=== PATIENT | female | born 1975 | race Caucasian/White ===

== ENCOUNTER → 2020-08-02 09:03 | Outpatient (BNVA) | payer OTHER, SELFPAY | PROVIDERS: PCP Internal Medicine; Visit Provider Physician Assistant | DX: Z76.89 Persons encountering health services in other specified circumstances (principal) ==

== ENCOUNTER → 2020-08-03 08:26 | Outpatient (BNVA) | payer OTHER, SELFPAY | PROVIDERS: PCP Internal Medicine; Visit Provider Physician Assistant | DX: Z76.89 Persons encountering health services in other specified circumstances (principal) ==

== ENCOUNTER → 2020-08-25 15:58 | Outpatient (BNVA) | payer OTHER, SELFPAY | PROVIDERS: PCP Internal Medicine; Visit Provider Surgery ==

== ENCOUNTER 2020-08-31 07:50 | Outpatient (REF) | payer OTHER, SELFPAY ==
[2020-08-31 09:07] LABS: Cholesterol 178 mg/dL; HDL Cholesterol 44 mg/dL; Iron 57 mcg/dL (30-160); LDL Cholesterol Calculated 117 mg/dl; Percent Iron Saturation 18 % (15-50); Total Iron Binding Capacity 321 mcg/dL (228-428); Triglycerides 88 mg/dL; Unsaturated Iron Binding 264 ug/dL
[2020-08-31 09:32] LABS: Ferritin 235 ng/mL (10-250); Vitamin D 25-OH Total 11.5 ng/mL (>30)
[2020-08-31 10:31] LABS: Estimated Average Glucose 105 mg/dL; Hemoglobin A1c % 5.3 %
[2020-08-31 11:21] LABS: Folate 6.9 ng/mL (> or = 4.0); Vitamin B12 163 pg/mL (200-900)
[2020-09-01 06:07] LABS: Insulin Level Total 36.2 uIU/mL
[2020-09-02 15:42] LABS: Calcium (PTHI) 9.2 mg/dL (8.6-10.2); PTHI 85 pg/mL (14-64)
[2020-09-02 22:47] LABS: Zinc 64 mcg/dL (60-130)
[2020-09-05 12:56] LABS: Vitamin B1 10 nmol/L (8-30)
[2020-09-07 14:17] LABS: Vitamin A 39 mcg/dL (38-98)
== END 2020-08-31 07:51 | disposition home or self-care (01) ==
LOC: HO.LAB 07:50
PROVIDERS: PCP Internal Medicine; Visit Provider Physician Assistant
DX: E66.01 Morbid (severe) obesity due to excess calories (principal); Z68.42 Body mass index [BMI] 45.0-49.9, adult
CPT/HCPCS: 36415; 80061; 82306; 82607; 82728; 82746; 83036; 83525; 83540; 83970; 84425; 84590; 84630; 86140

== ENCOUNTER → 2020-09-06 07:39 | Outpatient (BNVA) | payer OTHER, SELFPAY | PROVIDERS: PCP Internal Medicine; Visit Provider Dietitian, Registered ==

== ENCOUNTER → 2020-09-15 14:53 | Outpatient (BNVA) | payer OTHER, SELFPAY | PROVIDERS: PCP Internal Medicine; Visit Provider Surgery ==

== ENCOUNTER → 2020-10-03 09:49 | Outpatient (BNVA) | payer OTHER, SELFPAY | PROVIDERS: PCP Internal Medicine; Visit Provider Surgery ==

== ENCOUNTER → 2020-11-14 15:32 | Outpatient (BNVA) | payer OTHER, SELFPAY | PROVIDERS: PCP Internal Medicine; Visit Provider Surgery ==

== ENCOUNTER → 2021-01-30 14:22 | Outpatient (BNVA) | payer OTHER, SELFPAY | PROVIDERS: PCP Internal Medicine; Visit Provider Physician Assistant ==

== ENCOUNTER → 2021-02-13 13:55 | Outpatient (BNVA) | payer OTHER, SELFPAY | PROVIDERS: PCP Internal Medicine; Visit Provider Surgery ==

== ENCOUNTER 2021-03-12 12:30 | Emergency (ER) | payer OTHER, SELFPAY ==
--- NOTE | ~2021-03-12 | XR_ITS ---
EXAMINATION: XR KNEE, LEFT CLINICAL INFORMATION: Fall COMPARISON: None TECHNIQUE: Four views of the left knee. FINDINGS: Bones and soft tissues are normal. No fracture or joint effusion. Alignment is anatomic. Joint spaces are well maintained. No abnormal soft tissue calcification. XR/XR knee LT 4V IMPRESSION: No fracture.
--- NOTE | ~2021-03-12 | US_ITS ---
EXAMINATION: US VENOUS ULTRASOUND WITH DOPPLER LOWER EXTREMITY, LEFT CLINICAL INFORMATION: This is a 45-year-old female with left leg injury 2 days ago. Left leg pain and swelling. Possible deep vein thrombosis. COMPARISON: None TECHNIQUE: Ultrasound of the deep veins is performed from the hip to the calf with compression sonography and color and pulse Doppler assessment. Spectral analysis with color-flow imaging is performed. FINDINGS: There is normal venous compression and respiratory variation and augmented flow. The visualized common femoral vein, superficial femoral vein, profunda femoral vein, popliteal vein, and the trifurcation region shows no evidence of deep venous thrombosis. There is no significant popliteal fossa cyst. If the patient's symptoms persist, followup ultrasound in 5 days 7 days might be of value to exclude proximal propagation from a non-visualized calf vein. US/US venous duplex LE LT IMPRESSION: No DVT demonstrated in the left lower extremity.
[2021-03-12 12:44] VITALS: BP 137/83; PULSE 79; RESP 18; TEMP 36.6; O2SAT 97; BMI 40.7
--- NOTE | 2021-03-12 13:53 | ED.LOWEXIN ---
HPI - Extremity Injury (Lower) General Chief Complaint: Extremity Injury, Lower Stated Complaint: fall leg swelling Time Seen by Provider: 03/12/21 13:41 Source: patient Mode of arrival: ambulatory Limitations: no limitations History of Present Illness HPI Narrative: 45-year-old obese female presents for left knee injury after a trip and fall 2 nights ago on an uneven sidewalk. Patient has back issues, so rather than wrench her back she fell to her left side and fell on her left knee. Patient can walk, although it hurts to bear weight. Left calf has become swollen, warm, and tender to touch. Mom has a platelet disorder; ITP. Patient herself sees a doctor regularly but has never been seen by Hematology. MD complaint: knee injury Onset (ago): day(s) (2) Type of Injury: blunt Place: street/outdoors Severity: moderate Relieving factors: rest Exacerbating factors: weight bearing Context: fall Associated symptoms: swelling and ambulatory Other symptoms: none Treatments prior to arrival: cold therapy and NSAIDS Related Data Home Medications Medication Instructions Recorded Confirmed clonazepam 0.5 mg tablet 0.5 mg PO BID PRN 08/04/20 02/13/21 levonorgestrel 20 mcg/24 hours (6 INTRAUTERINE 08/04/20 02/13/21 yrs) 52 mg intrauterine device (Mirena) lisinopril 20 1 tab PO DAILY 08/04/20 02/13/21 mg-hydrochlorothiazide 25 mg tablet gabapentin 300 mg capsule 300 mg PO DAILY 09/16/20 02/13/21 mirabegron 25 mg tablet,extended 25 mg PO DAILY 01/30/21 02/13/21 release 24 hr (Myrbetriq) fluoxetine 20 mg capsule 20 mg PO DAILY cap 02/13/21 02/13/21 Previous Rx's Medication Instructions Recorded mecobalamin (vitamin B12) 1,000 1,000 mcg PO DAILY #30 tab 09/13/20 mcg chewable tablet cholecalciferol (vitamin D3) 1,250 1,250 mcg PO QWEEK #4 cap 09/15/20 mcg (50,000 unit) capsule Allergies Allergy/AdvReac Type Severity Reaction Status Date / Time No Known Allergies Allergy Verified 02/13/21 14:47 [No Known Allergies*] Review of Systems Review of Systems: Constitutional : No Weight loss, No Fever, No Chills, No Night Sweats,No Fatigue, No Malaise ENT/Mouth : No Hearing loss, No Ear Pain, No Nasal Congestion, NoSinus Pain, No Hoarseness, No sore throat, No Rhinorrhea, NoSwallowing Difficulty Eyes: No Eye Pain, No Swelling, No Redness, No Foreign Body, NoDischarge, No Vision Changes Cardiovascular : No Chest Pain, No SOB, No Dyspnea on Exertion, NoOrthopnea, No Edema, No Palpitations Respiratory : No Cough, No Sputum, No Wheezing, No Smoke Exposure, No Dyspnea Gastrointestinal : No Nausea, No Vomiting, No Diarrhea, NoConstipation, No abdominal Pain, No Hematochezia, No Melena Genitourinary : no irregular bleeding, No Dysuria, No UrinaryFrequency, No Hematuria, No Urinary Incontinence, No Urgency, No FlankPain, No Urinary Flow Changes, No Hesitancy Neuro : No Weakness, No Numbness, No Paresthesias, No Loss ofConsciousness, No Dizziness, No Headache Psych : No Anxiety/Panic, No Depression, No SI/HI/AH/VH, No Social Issues, Heme/Lymph: No Bruising, No Bleeding,No Lymphadenopathy Endocrine : No Polyuria, No Polydipsia, No Temperature Intolerance Yes all other systems are reviewed and are negative ENT: Denies dizziness Cardiovascular: Cardiovascular: Denies syncope Musculoskeletal: Musculoskeletal: Reports arthralgias and Denies numbness Integumentary/Breasts: Skin/Breast: Reports skin swelling Comments: Large area of bruising lateral leg and anterior and posterior. Abrasions on this left knee Neurologic: Denies dizziness, Denies syncope and Denies numbness [facility] Past Medical History Medical History Anxiety BMI 45.0-49.9, adult Depression Hypertension IBS (irritable bowel syndrome) Morbid obesity TRICIA on CPAP PCOS (polycystic ovarian syndrome) Surgical History Endometriosis H/O colonoscopy H/O tooth extraction History of bladder surgery Family History Family History Mother No problems noted. Father No problems noted. Sister No problems noted. Social History Social History Alcohol intake: current Alcohol intake frequency: a few times a month Patient Tobacco Use Status: Never used Tobacco Advance Directives: Yes Advance Directives Information Provided: No Advance Directives on File: No Patient : No Physical Exam Vital Signs: Vital Signs: Last Vital Signs Temp 98 F 03/12/21 12:44 Pulse 79 03/12/21 12:44 Resp 18 03/12/21 12:44 BP 137/83 03/12/21 12:44 Pulse Ox 97 03/12/21 12:44 Body Mass Index 40.7 Appearance: Alert. Oriented X3. No acute distress. Head: Normal external exam. Normocephalic. Atraumatic. ?No Martinez signs noted. No raccoon eyes noted Eyes: PERRLA. EOMI. Conjunctiva and sclera normal. Eyelids normal. ENT: EAC normal. TM's Normal. Pharynx normal. Uvula midline. Moist mucous membranes. ??No trismus noted. ?No drooling noted. ?No muffled voice noted. Neck: Normal inspection. Neck supple. FROM. No adenopathy. Thyroid Normal. No meningeal signs. No neck mass noted. CVS: Normal heart rate and rhythm. Heart sound normal. Pulses normal throughout. ?No murmurs/rales/gallops. Respiratory: No respiratory distress. Painless inspiration. Breath sounds normal. No wheezes/rales/rhonchi noted. Chest nontender. ??No accessory muscle usage noted or decreased air movement noted. Abdomen: Soft and nontender. Bowel sounds normal in all 4 quadrants. No distention noted. ?No organomegaly noted. ?No visible injury noted. Back: ?No CVA tenderness. ?Full range of motion noted. ?No rashes/lesion/induration/fluctuance or signs of infection noted. Skin: Skin warm and dry. ?Normal skin color. ?Normal skin turgor. No rashes/lesions/lacerations noted. Extremities: No lower extremity edema. ??Extremities exhibit normal range of motion. ?Extremities nontender. Neuro: Oriented X 3. ?No motor deficit. ?No sensory deficit. ?Reflexes normal. ?Normal steady gait. ?No focal neuro deficits noted. Vascular: + radial pulses/+ 2 distal pedal pulses/+2 dorsalis pedis b/l. ?Normal cap refill. ?No cyanosis noted to upper extremity nails and lower extremity toes nails. Neuro: Oriented X 3. No motor deficit. No sensory deficit. ?Reflexes normal. Moving all extremities. ?No focal motor deficits. ?Cranial nerves II-XI intact bilaterally. ??Facial strength normal. ??Normal cognition. Speech normal. Gait normal. Strength 5/5 throughout. No pronator drift. No tremor noted. No fasciculations noted. No rigidity noted. Muscle tone normal throughout. No asterixis noted. [id number] test normal. ?Heel to hudson test normal. Tandem gait normal. Does not sway with eyes open. Romberg test negative. Rapid alternating movement upper extremity normal. Rapid alternating movement lower extremity normal. ??Hand drop from overhead Misses face. ?NIHSS score 0. Extrem: Other: Ecchymosis lateral left lower extremity, swelling of left calf, warmth and tightness of left calf, mild anterior ecchymosis extending to the ankle of left hudson Left lower extremity: full ROM, normal capillary refill, knee Details: abnormal to inspection (Large area of ecchymosis) Details: Negative for knee not obviously dislocated, patella not obviously dislocated and not erythematous, tenderness (Posterior calf) and swelling (Entire cuff swollen) and lower leg Details: tenderness Location: of the posterior calf, abrasion (Anterior knee), ecchymosis and warmth Location: of the mid lower leg; Negative for no pitting edema, no lacerations and no crepitus Course Course Course Narrative: 45-year-old female presents for left knee pain after falling on left knee 2 days ago. Patient has swollen, warm, ecchymotic left calf. Patient is diffusely tender over left knee, x-rays negative for dislocation or fracture. No joint effusion seen on x-ray Plan is to get ultrasound for DVT rule out, US reads: There is normal venous compression and respiratory variation and augmented flow. The visualized common femoral vein, superficial femoral vein, profunda femoral vein, popliteal vein, and the trifurcation region shows no evidence of deep venous thrombosis. ? There is no significant popliteal fossa cyst. If the patient's symptoms persist, followup ultrasound in 5 days 7 days might be of value to exclude proximal propagation from a non-visualized calf vein Gave patient the immobilizer, allan grossman, advised patient to return to emergency room for DVT rule out if left calf swelling does not resolve in 5 days, or was worsening. Discharge Plan Discharge Clinical Impression: Contusion of knee and lower leg Qualifiers: Encounter type: initial encounter Laterality: left Qualified Code(s): S80.02XA - Contusion of left knee, initial encounter Patient Disposition: Home, Self-Care Instructions: Contusion in Adults (ED), Knee Immobilizer (ED) Additional Instructions: Please rest, ice, immobilize, and elevate your left leg. Use the knee immobilizer as compression. Please call your primary care provider tomorrow morning, I would like you to be seen and discuss a hematology referral for you. Please return to the emergency room if your left calf as more painful, becomes red, or becomes more swollen. If her symptoms do not resolve in 5 days, please return to the emergency room for another ultrasound to rule out a blood clot. Please return to emergency room for any new or concerning symptoms. Prescriptions: No Action mecobalamin (vitamin B12) 1,000 mcg tablet,chewable 1,000 mcg PO DAILY Qty: 30 RF: 5 clonazepam 0.5 mg tablet 0.5 mg PO BID PRNRF: 0 Mirena 20 mcg/24 hours (6 yrs) 52 mg intrauterine device intrauterine RF: 0 lisinopril-hydrochlorothiazide 20-25 mg tablet 1 tab PO DAILY RF: 0 fluoxetine 20 mg capsule 20 mg PO DAILY RF: 0 cholecalciferol (vitamin D3) 1,250 mcg (50,000 unit) capsule 1,250 mcg PO QWEEK Qty: 4 RF: 2 gabapentin 300 mg capsule 300 mg PO DAILY RF: 0 Myrbetriq 25 mg tablet extended release 24 hr 25 mg PO DAILY RF: 0
== END 2021-03-12 16:45 | disposition home or self-care (01) ==
PROVIDERS: Emergency Provider Emergency Medicine Emergency Medical Services; PCP Internal Medicine
DX: S80.02XA Contusion of left knee, initial encounter (principal); W01.0XXA Fall on same level from slipping, tripping and stumbling without subsequent striking against object, initial encounter; E66.01 Morbid (severe) obesity due to excess calories; Z68.41 Body mass index [BMI] 40.0-44.9, adult; Y93.01 Activity, walking, marching and hiking; Y92.480 Sidewalk as the place of occurrence of the external cause; Y99.9 Unspecified external cause status
CPT/HCPCS: 73564; 93971; 99283; 99284

== ENCOUNTER 2022-05-05 23:54 | Emergency (ER) | payer OTHER, SELFPAY ==
--- NOTE | ~2022-05-05 | CT_ITS ---
EXAMINATION: CT HEAD WITHOUT CONTRAST CLINICAL INFORMATION: Right finger numbness COMPARISON: 12.23.2010 TECHNIQUE: Contiguous axial imaging was performed from the skull base to vertex without intravenous administration of contrast. This CT examination was performed using dose optimization techniques as appropriate, variously including the following: *Automated exposure control *Adjustment of mA and/or kV according to patient size (this includes techniques or standardized protocols for targeted exams where dose is matched to indication/reason for exam; i.e. extremities or head) *Use of iterative reconstruction technique DLP: 646 mGy-cm FINDINGS: There is no evidence of acute intracranial hemorrhage or territorial infarction. No abnormal mass effect or midline shift is seen. Peñaloza to white matter differentiation is well preserved. No extra-axial fluid collections are identified. No hydrocephalus. No significant volume loss. There is no abnormal attenuation within the brain parenchyma. No acute osseous or soft tissue abnormality. The mastoid air cells and visualized portions of the paranasal sinuses are well aerated. CT/CT head/brain wo IV con IMPRESSION: No acute intracranial pathology.
[2022-05-06 00:03] VITALS: BP 147/79; PULSE 100; O2SAT 99
[2022-05-06 00:19] VITALS: BP 123/75; PULSE 111; RESP 18; TEMP 36.7; O2SAT 98; BMI 42.4
[2022-05-06 00:55] LABS: MANUAL DIFF FLAG NO
[2022-05-06 00:56] LABS: Basophils Absolute Auto 0.1 X10*3/uL (0.0-0.2); Basophils Percent Auto 0.6 % (0-2); Eosinophils Absolute Auto 0.2 X10*3/uL (0.0-0.4); Eosinophils Percent Auto 1.6 % (0-4); Hematocrit 36.8 % (37.0-47.0); Hemoglobin 12.2 g/dl (12.0-16.0); Imm Gran Abs Auto 0.06 X10*3/uL (0.00-0.03); Imm Gran Pct Auto 0.5 % (0.0-0.4); Lymphocytes Absolute Auto 2.8 X10*3/uL (1.2-4.9); Lymphocytes Percent Auto 24.7 % (20-40); Mean Corpuscular HGB Conc 33.2 g/dl (31.0-35.0); Mean Corpuscular Hemoglobin 27.3 pg (27.0-33.0); Mean Corpuscular Volume 82.3 fL (80.0-98.0); Mean Platelet Volume 9.8 fL (9.4-12.3); Monocytes Absolute Auto 0.5 X10*3/uL (0.1-1.2); Monocytes Percent Auto 4.6 % (2-11); Neutrophils Absolute Auto 7.8 x10*3/uL (2.0-8.3); Platelet Count 306 X10*3/uL (160-400); Red Blood Count 4.47 X10*6/uL (4.20-5.50); Red Cell Distribution Width 13.1 % (11.0-16.0); White Blood Count 11.4 X10*3/uL (4.8-10.8)
--- OUTSIDE RECORDS SUMMARY | 2022-05-06 01:03 | XMS_ITS | Continuity of Care Document ---
:1975 Author Organization [facility] Address [address] [place] [id number]- Care Team Providers Name Role Phone Sue MARTINEZ, Alejandro Amaya Primary Care Physician Encounter [facility] Date(s): 06/28/20 - 07/28/20 [facility] [address] [id number] Attending Physician: Lorna Jay Admitting Physician: Lorna Jay Referring Physician: Lorna Jay Allergies, Adverse Reactions, Alerts Substance Reaction Severity Status Demerol vomiting Active Immunizations Given and Recorded Vaccine Date Status Refusal Reason Influenza Virus Vaccine (oldterm) 04/07/20 Recorded Influenza Virus Vaccine (oldterm) 05/17/17 Given Influenza Virus Vaccine (oldterm) 07/30/13 Given influenza virus vaccine, inactivated 07/20/19 Given influenza virus vaccine, inactivated 05/27/18 Recorded influenza virus vaccine, inactivated 05/21/16 Given influenza virus vaccine, inactivated 05/27/15 Given tetanus/diphtheria/pertussis, acel(Tdap) 09/21/16 Given FluLaval (oldterm)1 03/25/12 Given Fluzone (oldterm) 08/02/09 Given influ virus vac, H1N1, inactive(oldterm)2 08/02/09 Given Pneumococcal Vaccine (oldterm) 06/04/08 Given Influenza Inactive (IM) (oldterm)3 06/04/08 Given Tetanus Toxoid Vaccine (oldterm) 10/03/06 Given 1Admin Note: [id number]: [id number] Note: SANOFI PASTEUR Medications ASA/butalbital/caffeine 325 mg-50 mg-40 mg oral tablet 1 tablet, By Mouth, Every 4 hours, PRN for pain, 1 tablet every 4 hours PRN for headaches fax # [phone], # 30 tablet, 5 Refills, Maintenance, 12/16/17 11:20:08 EDT, Tablet Start Date: 12/16/17 Status: OrderedCPAP House Worker, 05/19/18 8:04:57 EDT, Compound Start Date: 05/19/18 Status: OrderedFlonase 50 mcg/inh nasal spray 1 sprays, Nares, Both, 2 times a day, in each nostril, # 48 mL, 1 Refills, Maintenance, 01/28/20 10:50:00 EDT, [place], [facility]/pharmacy #[id number], 1 sprays Nares, Both 2 times a day,Instr:in each nostril, 165.1, cm, 01/26/20 10:01:00 EDT, Height, 123, kg, 09/05... Start Date: 01/28/20 Status: OrderedFlovent HFA 110 mcg/inh inhalation aerosol 2 puffs, Inhalation, 2 times a day, rinse mouth and throat after use, # 12 Gm, 1 Refills, Maintenance, 08/14/19 12:08:00 EST, Aerosol, [facility]/pharmacy #[id number], 165.1, cm, 08/04/19 8:55:00 EST, Height Start Date: 08/14/19 Status: OrderedFLUoxetine 20 mg oral capsule 60 mg, 3, capsule, By Mouth, Daily, # 270 capsule, Refills 3, Tot. Refills 3, Maintenance, 07/20/19 8:49:52 EST, Route to Pharmacy Electronically, [facility]/pharmacy #[id number], 165.1, cm, 07/20/19 8:25:18 EST, Height Start Date: 07/20/19 Status: OrderedKlonoPIN 0.5 mg oral tablet 1 tablet = 0.5 mg, By Mouth, 2 times a day, # 60 tablet, 0 Refills, Maintenance, 07/11/20 10:01:00 EST, Tablet, [facility]/pharmacy #[id number], 165.1, cm, 06/27/20 9:45:00 EST, Height, 125.8, kg, 06/27/20 9:45:00 EST, Dry Weight Start Date: 07/11/20 Status: OrderedMirena 52 mg intrauteral device 1 each = 52 mg, Once, 0 Refills, Maintenance, 07/25/16 15:52:04 Start Date: 07/25/16 Status: Orderedoxybutynin 10 mg/24 hr oral tablet, extended release 1 tablet = 10 mg, By Mouth, Daily, # 30 tablet, 5 Refills, Maintenance, 06/27/20 10:16:00 EST, ER Tablet, [facility]/pharmacy #[id number], Partial fill upon patient request, 165.1, cm, 06/27/20 9:45:00 EST, Height,125.8, kg, 06/27/20 9:45:00 EST, Dry Weight Start Date: 06/27/20 Status: OrderedTylenol 325 mg oral capsule 2 capsule = 650 mg, By Mouth, Every 4 hours, PRN as needed for pain, # 90 capsule, 0 Refills, Maintenance, 03/23/20 8:44:00 EDT, Capsule, [facility]/pharmacy #[id number], 165.1, cm, 03/23/20 7:03:00 EDT, Height, 125.8, kg, 03/23/20 7:03:00 EDT, Dry Weight Start Date: 03/23/20 Status: OrderedVentolin HFA 108 mcg/inh inhalation aerosol with adapter 2 puffs, Inhalation, Every 4 hours, PRN for wheezing, # 3 each, 3 Refills, Maintenance, 06/09/19 15:47:35 EST, Aerosol Start Date: 06/09/19 Stop Date: 10/07/19 Status: OrderedZestoretic 25 mg-20 mg oral tablet 1 tablet, By Mouth, Daily, # 90 tablet, 1 Refills, Maintenance, 07/11/20 10:00:00 EST, Tablet, [facility]acy [id number], 1 tablet By Mouth Daily, 165.1, cm, 06/27/20 9:45:00 EST, Height, 125.8, kg, 06/27/20 9:45:00 EST, Dry Weight Start Date: 07/11/20 Status: Ordered Problem List Condition Effective Dates Status Health Status Informant Acute mesenteric adenitis(Confirmed) Active Anxiety(Confirmed) Active Asthma(Confirmed) Active Asthmatic bronchitis(Confirmed) 09/22/09 Active BMI 40.0-44.9, adult(Confirmed) Active Colonoscopy(Confirmed)1 Active Sebaceous cyst(Confirmed) Active Family history of cancer of Active colon(Confirmed) Family history of multiple Active myeloma(Confirmed)2 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) Stress incontinence in Active female(Confirmed) Hemangioma of liver(Confirmed) Active Hypertension(Confirmed) 05/24/09 Active IBS - Irritable bowel Active syndrome(Confirmed) Lipoma(Confirmed) Active Low back pain(Confirmed) Active Migraine(Confirmed) Active Abnormal MRI, lumbar spine(Confirmed)3 Active TRICIA (obstructive sleep Active apnea)(Confirmed) Polycystic ovary syndrome(Confirmed) Active Memory loss, short term(Confirmed) Active Rhinitis(Confirmed) Active Septate uterus(Confirmed) Active 2008 no polyps or [id number] Leticia-Juju Social History Social History Type Response Smoking Status Never smoker entered on: 10/27/13 Sex
--- OUTSIDE RECORDS SUMMARY | 2022-05-06 01:03 | XMS_ITS | Continuity of Care Document ---
:1975 Author Organization [facility] Address [address] [place] [address]- Care Team Providers Name Role Phone Sue MARTINEZ, Alejandro Amaya Primary Care Physician Encounter [facility] Date(s): 02/10/21 - 02/17/21 [facility] [address] [place] [address]- Encounter Diagnosis Cough (Discharge Diagnosis) - 02/10/21 Asthmatic bronchitis (Discharge Diagnosis) - 02/10/21 Elevated blood pressure reading (Discharge Diagnosis) - 02/10/21 Attending Physician: Hong Tan MD Allergies, Adverse Reactions, Alerts Substance Reaction Severity Status Demerol vomiting Active Immunizations Given and Recorded Vaccine Date Status Refusal Reason SARS-CoV-2 (COVID-19) mRNA BNT-162b2 vac 11/05/20 Recorde d SARS-CoV-2 (COVID-19) mRNA BNT-162b2 vac 10/15/20 Recorde d Influenza Virus Vaccine (oldterm) 04/07/20 Recorded Influenza [...] Toxoid Vaccine (oldterm) 10/03/06 Given 1Admin Note: [facility]2Admin Note: [id number] Note: SANOFI PASTEUR Medications ASA/butalbital/caffeine 325 mg-50 mg-40 mg oral tablet 1 tablet, By Mouth, Every 4 hours, PRN for pain, 1 tablet every 4 hours PRN for headaches fax # [phone], # 30 tablet, 5 Refills, Maintenance, 12/16/17 11:20:08 EDT, Tablet Start Date: 12/16/17 Status: OrderedAzithromycin 5 Day Dose Pack 250 mg oral tablet 1 pack/packet, By Mouth, Once, # 6 tablet, 0 Refills, Soft Stop, 02/16/21 11:30:00 EDT, Tablet, [facility]/pharmacy #[id number], Partial fill upon patient request if the prescription is for a schedule II opioid drug., 165.1, cm, 02/16/21 10:47:00 EDT, Height, 125.... Start Date: 02/16/21 Status: OrderedCPAP Account Executive Sales Representative, 05/19/18 8:04:57 EDT, Compound Start Date: 05/19/18 Status: Orderedcyclobenzaprine 10 mg oral tablet 10 mg, By Mouth, Every 8 hours, PRN, Muscle Spasms, # 21 tablet, Refills 0, Tot. Refills 0, Maintenance, Pain , Moderate, 09/16/20 14:52:00 EST, Route to Pharmacy Electronically, [facility]/pharmacy #[id number], Partial fill upon patient request if the prescriptio... Start Date: 09/16/20 Status: OrderedDiflucan 150 mg oral tablet 1 tablet = 150 mg, By Mouth, Once, # 1 tablet, 0 Refills, Soft Stop, 02/16/21 11:31:00 EDT, Tablet, [facility]pharmacy #[id number], Partial fill upon patient request if the prescription is for a schedule II opioiddrug., 165.1, cm, 02/16/21 10:47:00 EDT, Height,... Start Date: 02/16/21 Status: OrderedFlonase 50 mcg/inh nasal spray 1 sprays, Nares, Both, 2 times a day, in each nostril, # 48 mL, 1 Refills, Maintenance, 01/28/20 10:50:00 EDT, [place], [facility]/pharmacy #[id number], 1 sprays Nares, Both 2 times a day,Instr:in each nostril, 165.1, cm, 01/26/20 10:01:00 EDT, Height, 123, kg, 09/05... Start Date: 01/28/20 Status: OrderedFlovent HFA 110 mcg/inh inhalation aerosol 2 puffs, Inhalation, 2 times a day, rinse mouth and throat after use, # 12 Gm, 1 Refills, Maintenance, 02/10/21 8:24:00 EDT, Aerosol, [facility]/pharmacy #[id number], 165.1, cm, 02/10/21 8:00:00 EDT, Height, 125.8,kg, 06/27/20 9:45:00 EST, Dry Weight Start Date: 02/10/21 Status: OrderedFLUoxetine 20 mg oral capsule 60 mg, 3, capsule, By Mouth, Daily, # 270 capsule, Refills 3, Tot. Refills 3, Maintenance, 07/20/19 8:49:52 EST, Route to Pharmacy Electronically, [facility]/pharmacy #[id number], 165.1, cm, 07/20/19 8:25:18 EST, Height Start Date: 07/20/19 Status: Orderedgabapentin 300 mg oral capsule 300 mg, 1, capsule, By Mouth, Daily at bedtime, Refills 0, Maintenance, 09/16/20 14:05:00 EST, Partial fill upon patient request if the prescription is for a schedule II opioid drug. Start Date: 09/16/20 Status: OrderedKlonoPIN 0.5 mg oral tablet 1 tablet = 0.5 mg, By Mouth, 2 times a day, # 60 tablet, 0 Refills, Maintenance, 07/11/20 10:01:00 EST, Tablet, [facility]/pharmacy #[id number], 165.1, cm, 06/27/20 9:45:00 EST, Height, 125.8, kg, 06/27/20 9:45:00 EST, Dry Weight Start Date: 07/11/20 Status: OrderedMirena 52 mg intrauteral device 1 each = 52 mg, Once, 0 Refills, Maintenance, 12/21/16 15:52:04 Start Date: 07/25/16 Status: OrderedMyrbetriq 25 mg oral tablet, extended release 1 tablet = 25 mg, By Mouth, Daily, # 30 tablet, 5 Refills, Maintenance, 09/26/20 10:20:00 EST, [facility]/pharmacy #[id number], Partial fill upon patient request if the prescription is for a schedule II opioid drug., 165.1, cm, 09/16/20 14:04:00 EST, Height, 125.8... Start Date: 09/26/20 Status: OrderedpredniSONE 20 mg oral tablet See Instructions, 2 tablets daily for 5 days and then 1 tablet daily for 5 days, # 15 tablet, 0 Refills, Maintenance, 02/16/21 11:30:00 EDT, [id number], Partial fill upon patient request if theprescription is for a schedule II opioid drug., 1... Start Date: 02/16/21 Status: OrderedTylenol 325 mg oral capsule 2 capsule = 650 mg, By Mouth, Every 4 hours, PRN as needed for pain, # 90 capsule, 0 Refills, Maintenance, 03/23/20 8:44:00 EDT, Capsule, [facility]/pharmacy #[id number], 165.1, cm, 03/23/20 7:03:00 EDT, Height, [...] 1 Refills, Maintenance, 07/11/20 10:00:00 EST, Tablet, [facility]/pharmacy #[id number], 1 tablet By Mouth Daily, 165.1, [...] Septate uterus(Confirmed) Active 2008 no polyps or [id number] Andrzej Diagnosis Diagnosis Type Effective Dates Health Clinical Infor mant Status Service Cough Discharge 02/10/21 Diagnosis Asthmatic Discharge 02/10/21 bronchitis Diagnosis Elevated blood Discharge 02/10/21 pressure reading Diagnosis Vital Signs Most recent to oldest [Reference Range]: 1 Height 165.10 cm (02/10/21 8:00 AM) Weight 117.27 kg (02/10/21 8:00 AM) Body Mass Index [18.5-24.99] 43.02 *>HHI* (02/10/21 8:00 AM) Temperature [96.8-100.4 DegF] 99.4 DegF (02/10/21 8:00 AM) Temperature Route Oral (02/10/21 8:00 AM) Weight Obtained Via Standing scale (02/10/21 8:00 AM) Social History Social History Type Response Smoking Status Never smoker entered on: 10/27/13 Sex
--- OUTSIDE RECORDS SUMMARY | 2022-05-06 01:03 | XMS_ITS | Continuity of Care Document ---
:1975 Author Organization [facility], [place] [place] [facility] Address [address] [place] [address]- Care Team Providers Name Role Phone Sue MARTINEZ, Alejandro Amaya Primary Care Physician Encounter [facility] Date(s): 09/16/20 - 09/23/20 [facility] [place] [place] [facility] [address] [place] [address]- Encounter Diagnosis Low back pain (Discharge Diagnosis) - 09/16/20 Attending Physician: Elaine Reed NP Allergies, Adverse Reactions, Alerts Substance Reaction Severity [...] Toxoid Vaccine (oldterm) 10/03/06 Given 1Admin Note: [employer] [facility] SurgeryQkropz3Vlakq Note: [id number] Note: SANOFI PASTEUR Medications ASA/butalbital/caffeine 325 mg-50 mg-40 mg oral tablet 1 tablet, By Mouth, Every 4 hours, PRN for pain, 1 tablet every 4 hours PRN for headaches fax # [phone], # 30 tablet, 5 Refills, Maintenance, 12/16/17 11:20:08 EDT, Tablet Start Date: 12/16/17 Status: OrderedCPAP C Iron Worker, 05/19/18 8:04:57 EDT, Compound Start Date: 05/19/18 Status: Orderedcyclobenzaprine 10 mg oral tablet 10 mg, By Mouth, Every 8 hours, PRN, Muscle Spasms, # 21 tablet, Refills 0, Tot. Refills 0, Maintenance, Pain , Moderate, 09/16/20 14:52:00 EST, Route to Pharmacy Electronically, [facility]/pharmacy #[id number], Partial fill upon patient request if the prescriptio... Start Date: 09/16/20 Status: OrderedFlonase 50 mcg/inh nasal spray 1 sprays, Nares, Both, 2 times a day, in each nostril, # 48 mL, 1 Refills, Maintenance, 01/28/20 10:50:00 EDT, [place], [facility]/pharmacy #[id number], 1 sprays Nares, Both 2 times a day,Instr:in each nostril, 165.1, cm, 01/26/20 10:01:00 EDT, Height, 123, kg, 09/05... Start Date: 01/28/20 Status: OrderedFlovent HFA 110 mcg/inh inhalation aerosol 2 puffs, Inhalation, 2 times a day, rinse mouth and throat after use, # 12 Gm, 1 Refills, Maintenance, 08/14/19 12:08:00 EST, Aerosol, [facility]/pharmacy #[id number], 165.1, cm, 08/04/19 8:55:00 EST, Height Start Date: 08/14/19 Status: OrderedFLUoxetine 20 mg oral capsule 60 mg, 3, capsule, By Mouth, Daily, # 270 capsule, Refills 3, Tot. Refills 3, Maintenance, 07/20/19 8:49:52 EST, Route to Pharmacy Electronically, [facility]/pharmacy #[id number], 165.1, cm, 07/20/19 8:25:18 EST, Height [...] 0 Refills, Maintenance, 07/11/20 10:01:00 EST, Tablet, [facility]/pharmacy #[id number], 165.1, cm, 06/27/20 9:45:00 EST, Height, [...] Refills, Maintenance, 06/27/20 10:16:00 EST, ER Tablet, [facility]/pharmacy #[id number], Partial fill upon patient request, 165.1, cm, 06/27/20 9:45:00 EST, Height,125.8, kg, 06/27/20 9:45:00 EST, Dry Weight Start Date: 06/27/20 Status: OrderedTylenol 325 mg oral capsule 2 capsule = 650 mg, By Mouth, Every 4 hours, PRN as needed for pain, # 90 capsule, 0 Refills, Maintenance, 03/23/20 8:44:00 EDT, Capsule, [facility]/pharmacy #[id number], 165.1, cm, 03/23/20 7:03:00 EDT, Height, [...] 1 Refills, Maintenance, 07/11/20 10:00:00 EST, Tablet, [facility]/pharmacy #[id number], 1 tablet By Mouth Daily, 165.1, [...] Septate uterus(Confirmed) Active 2008 no polyps or [id number] Andrzej Diagnosis Diagnosis Type Effective Dates Health Status Clinical In formant Service Low back pain Discharge 09/16/20 Diagnosis Vital Signs Most recent to oldest [Reference Range]: 1 Height 165.10 cm (09/16/20 2:04 PM) Social History Social History Type Response Smoking Status Never smoker entered on: 10/27/13 Sex
--- OUTSIDE RECORDS SUMMARY | 2022-05-06 01:03 | XMS_ITS | Continuity of Care Document ---
:1975 Author Organization [facility] p Address [address] [place] [address], [address] [place] [address]- Care Team Providers Name Role Phone Sue MARTINEZ, Alejandro Amaya Primary Care Physician Encounter [facility] Date(s): 08/31/19 - 09/10/19 [facility] [address] [address]- Attending Physician: Lorna Jay Admitting Physician: Lorna Jay Referring Physician: Lorna Jay Allergies, Adverse Reactions, Alerts Substance Reaction Severity Status Demerol Active Immunizations Given and Recorded Vaccine Date Status Refusal Reason influenza virus vaccine, inactivated 07/20/19 Given influenza virus vaccine, inactivated 05/27/18 Recorded influenza virus vaccine, inactivated 05/21/16 Given influenza virus vaccine, inactivated 05/27/15 Given Influenza Virus Vaccine (oldterm) 05/17/17 Given Influenza Virus Vaccine (oldterm) 07/30/13 Given tetanus/diphtheria/pertussis, acel(Tdap) 09/21/16 Given FluLaval (oldterm)1 03/25/12 Given Fluzone (oldterm) 08/02/09 Given influ virus vac, H1N1, inactive(oldterm)2 08/02/09 Given Pneumococcal Vaccine (oldterm) 06/04/08 Given Influenza Inactive (IM) (oldterm)3 06/04/08 Given Tetanus Toxoid Vaccine (oldterm) 10/03/06 Given 1Admin Note: [facility] [facility]Jgwgxf6Xvyxo Note: [id number] Note: SANOFI PASTEUR Medications ASA/butalbital/caffeine 325 mg-50 mg-40 mg oral tablet 1 tablet, By Mouth, Every 4 hours, PRN for pain, 1 tablet every 4 hours PRN for headaches fax # [phone], # 30 tablet, 5 Refills, Maintenance, 12/16/17 11:20:08 EDT, Tablet Start Date: 12/16/17 Status: OrderedCPAP Cigar Packer And Sorter, 05/19/18 8:04:57 EDT, Compound Start Date: 05/19/18 Status: OrderedDiflucan 150 mg oral tablet 1 tablet = 150 mg, By Mouth, Once, # 1 tablet, 0 Refills, Soft Stop, 08/04/19 9:21:00 EST, Tablet, [facility]/pharmacy #[id number], 165.1, cm, 08/04/19 8:55:00 EST, Height Start Date: 08/04/19 Status: OrderedFlonase 50 mcg/inh nasal spray 1 sprays, Nares, Both, 2 times a day, in each nostril, # 16 Gm, 6 Refills, Maintenance, 08/04/19 14:13:00 EST, [place], [facility]/pharmacy #[id number], 1 sprays Nares, Both 2 times a day,Instr:in each nostril, 165.1, cm, 08/04/19 8:55:00 EST, Height Start Date: 08/04/19 Status: OrderedFlovent HFA 110 mcg/inh inhalation aerosol 2 puffs, Inhalation, 2 times a day, rinse mouth and throat after use, # 12 Gm, 1 Refills, Maintenance, 08/14/19 12:08:00 EST, Aerosol, [facility]/pharmacy #[id number], 165.1, cm, 08/04/19 8:55:00 EST, Height Start Date: 08/14/19 Status: OrderedFLUoxetine 20 mg oral capsule 60 mg, 3, capsule, By Mouth, Daily, # 270 capsule, Refills 3, Tot. Refills 3, Maintenance, 07/20/19 8:49:52 EST, Route to Pharmacy Electronically, [facility]/pharmacy #[id number], 165.1, cm, 07/20/19 8:25:18 EST, Height Start Date: 07/20/19 Status: OrderedKlonoPIN 0.5 mg oral tablet 1 tablet = 0.5 mg, By Mouth, 2 times a day, # 60 tablet, 5 Refills, Maintenance, 06/09/19 16:13:49 EST, Tablet Start Date: 06/09/19 Status: OrderedMirena 52 mg intrauteral device 1 each = 52 mg, Once, 0 Refills, Maintenance, 07/25/16 15:52:04 Start Date: 07/25/16 Status: OrderedpredniSONE 20 mg oral tablet See Instructions, 2 tablets daily for 5 days and then 1 tablet daily for 5 days, # 15 tablet, 0 Refills, Maintenance, 08/04/19 9:20:00 EST, [id number], 165.1, cm, 08/04/19 8:55:00 EST, Height Start Date: 08/04/19 Status: OrderedVentolin HFA 108 mcg/inh inhalation aerosol with adapter 2 puffs, Inhalation, Every 4 hours, PRN for wheezing, # 3 each, 3 Refills, Maintenance, 06/09/19 15:47:35 EST, Aerosol Start Date: 06/09/19 Stop Date: 10/07/19 Status: OrderedVitamin B12 0 Refills, Maintenance, 08/28/18 8:06:46 EST Start Date: 08/28/18 Status: OrderedVitamin D3 By Mouth, 0 Refills, Maintenance, 08/28/18 8:06:39 EST Start Date: 08/28/18 Status: OrderedZestoretic 25 mg-20 mg oral tablet 1 tablet, By Mouth, Daily, # 90 tablet, 3 Refills, Maintenance, 07/20/19 8:49:52 EST, Tablet, [id number], 1 tablet By Mouth Daily, 165.1, cm, 07/20/19 8:25:18 EST, Height Start Date: 07/20/19 Status: Ordered Problem List Condition Effective Dates Status Health Status Informant Acute mesenteric adenitis(Confirmed) Active Anxiety(Confirmed) Active Asthma(Confirmed) Active Asthmatic bronchitis(Confirmed) 09/22/09 Active BMI 40.0-44.9, adult(Confirmed) Active Colonoscopy(Confirmed)1 Active Sebaceous cyst(Confirmed) Active Family history of cancer of Active colon(Confirmed) 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) Stress incontinence in Active female(Confirmed) Hemangioma of liver(Confirmed) Active Hypertension(Confirmed) 05/24/09 Active IBS - Irritable bowel Active syndrome(Confirmed) Lipoma(Confirmed) Active Migraine(Confirmed) Active TRICIA (obstructive sleep Active apnea)(Confirmed) Polycystic ovary syndrome(Confirmed) Active Rhinitis(Confirmed) Active Septate uterus(Confirmed) Active 1colo 2008 no polyps or cancer Social History Social History Type Response Smoking Status Never smoker entered on: 10/27/13 Sex
--- OUTSIDE RECORDS SUMMARY | 2022-05-06 01:03 | XMS_ITS | Continuity of Care Document ---
:1975 Author Organization [facility] Address [address] [place] [address]- Care Team Providers Name Role Phone Alejandro Rogers MD Primary Care Physician [place] [facility] [place]12[place]21 [place] 09/19/21 [facility] [address] [place] [address]- Attending Physician: Hung Nicole MD Allergies, Adverse Reactions, Alerts Substance Reaction [...] Toxoid Vaccine (oldterm) 10/03/06 Given 1Admin Note: [facility]2Admin Note: [id number] Note: SANOFI PASTEUR Medications ASA/butalbital/caffeine 325 mg-50 mg-40 mg oral tablet 1 tablet, By Mouth, Every 4 hours, PRN for pain, 1 tablet every 4 hours PRN for headaches fax # [phone], # 30 tablet, 5 Refills, Maintenance, 12/16/17 11:20:08 EDT, Tablet Start Date: 12/16/17 Status: OrderedCPAP Circuit Design Engineer, 05/19/18 8:04:57 EDT, Compound Start Date: 05/19/18 Status: OrderedEpiPen 2-Maxi 0.3 mg injectable kit = 0.3 mg, Intramuscular, Once, # 1 each, 0 Refills, Soft Stop, 09/12/21 10:04:00 EST, [id number], Partial fill upon patient request if the prescription is for a schedule II opioid drug., 165.1,cm, 03/21/21 7:14:00 EDT, Height, 125.8, kg, 06/06... Start Date: 09/12/21 Status: OrderedFlonase 50 mcg/inh nasal spray 1 sprays, Nares, Both, 2 times a day, in each nostril, # 48 mL, 1 Refills, Maintenance, 01/28/20 10:50:00 EDT, [place], [id number], 1 sprays Nares, Both 2 times a day,Instr:in each nostril, 165.1, cm, 01/26/20 10:01:00 EDT, Height, 123, kg, 09/05... Start Date: 01/28/20 Status: OrderedFlovent HFA 110 mcg/inh inhalation aerosol 2 puffs, Inhalation, 2 times a day, rinse mouth and throat after use, # 12 Gm, 1 Refills, Maintenance, 02/10/21 8:24:00 EDT, [place]eros[place], [id number], 165.1, cm, 02/10/21 8:00:00 EDT, Height, 125.8,kg, 06/27/20 9:45:00 EST, Dry Weight Start Date: 02/10/21 Status: OrderedFLUoxetine 20 mg oral capsule 60 mg, 3, capsule, By Mouth, Daily, # 270 capsule, Refills 3, Tot. Refills 3, Maintenance, 07/20/19 8:49:52 EST, Route to Pharmacy Electronically, [facility]/pharmacy #[id number], 165.1, cm, 07/20/19 8:25:18 EST, Height Start Date: 07/20/19 Status: Orderedgabapentin 300 mg oral capsule 300 mg, 1, capsule, By Mouth, Daily at bedtime, Refills 0, Maintenance, 09/16/20 14:05:00 EST, Partial fill upon patient request if the prescription is for a schedule II opioid drug. Start Date: 09/16/20 Status: Orderedhydrochlorothiazide-lisinopril 25 mg-20 mg oral tablet 1 tablet, By Mouth, Daily, # 90 tablet, 1 Refills, [facility] STORE [id number], 90, TAKE 1 TABLET BY MOUTH EVERYDAY, 165.1, cm, 03/21/21 7:14:00 EDT, Height, 125.8, kg, 06/27/20 9:45:00 EST, Dry Weight Start Date: 04/25/21 Status: OrderedKlonoPIN 0.5 mg oral tablet 1 tablet = 0.5 mg, By Mouth, 2 times a day, # 60 tablet, 0 Refills, Maintenance, 07/11/20 10:01:00 EST, Tablet, [facility]/pharmacy #[id number], 165.1, cm, 06/27/20 9:45:00 EST, Height, 125.8, kg, 06/27/20 9:45:00 EST, Dry Weight Start Date: 07/11/20 Status: OrderedMirena 52 mg intrauteral device 1 each = 52 mg, Once, 0 Refills, Maintenance, 07/25/16 15:52:04 Start Date: 07/25/16 Status: OrderedMyrbetriq 25 mg oral tablet, extended release 1 tablet = 25 mg, By Mouth, Daily, # 30 tablet, 5 Refills, Maintenance, 09/26/20 10:20:00 EST, [facility]/pharmacy #[id number], Partial fill upon patient request if the prescription is for a schedule II opioid drug., 165.1, cm, 09/16/20 14:04:00 EST, Height, 125.8... Start Date: 09/26/20 Status: OrderedTylenol 325 mg oral capsule 2 [...] Start Date: 06/09/19 Stop Date: 10/07/19 Status: Ordered Problem List Condition Effective Dates [...] Septate uterus(Confirmed) Active 2008 no polyps or [id number] KellyJuju Social History Social History Type Response Smoking Status Never smoker entered on: 10/27/13 Sex
--- OUTSIDE RECORDS SUMMARY | 2022-05-06 01:03 | XMS_ITS | Continuity of Care Document ---
:1975 Author Organization [facility] Address [address] [place] [address]- Care Team Providers Name Role Phone Alejandro Rogers MD Primary Care Physician Encounter [facility] Date(s): 10/12/19 - 12/23/[address] [address]- [facility] Attending Physician: Kacie Huff MD Admitting Physician: Kacie Huff MD Allergies, Adverse Reactions, Alerts Substance Reaction [...] Toxoid Vaccine (oldterm) 10/03/06 Given 1Admin Note: [employer] [facility] HospitalJjlkvc7Vfgjf Note: [id number] Note: SANOFI PASTEUR Medications ASA/butalbital/caffeine 325 mg-50 mg-40 mg oral tablet 1 tablet, By Mouth, Every 4 hours, PRN for pain, 1 tablet every 4 hours PRN for headaches fax # [phone], # 30 tablet, 5 Refills, Maintenance, 12/16/17 11:20:08 EDT, Tablet Start Date: 12/16/17 Status: OrderedCPAP Coal Cager, 05/19/18 8:04:57 EDT, Compound Start Date: 05/19/18 Status: Orderedcyclobenzaprine 10 mg oral tablet 10 mg, 1, tablet, By Mouth, Daily at bedtime, # 14 tablet, Refills 0, Tot. Refills 0, Maintenance, 11/06/19 15:45:00 EDT, Route to Pharmacy Electronically, [facility]/pharmacy #[id number], 165.1, cm, 09/14/19 9:02:00 EST, Height, 123, kg, 09/14/19 9:02:00 EST, Dry... Start Date: 11/06/19 Status: OrderedDiflucan 150 mg oral tablet 1 tablet = 150 mg, By Mouth, Once, # 1 tablet, 0 Refills, Soft Stop, 08/04/19 9:21:00 EST, Tablet, [facility]/pharmacy #[id number], 165.1, cm, 08/04/19 8:55:00 EST, Height Start Date: 08/04/19 Status: OrderedFlonase 50 mcg/inh nasal spray 1 sprays, Nares, Both, 2 times a day, in each nostril, # 16 Gm, 6 Refills, Maintenance, 08/04/19 14:13:00 EST, [place], [facility]/pharmacy #[id number], 1 sprays Nares, Both 2 times a day,Instr:in each nostril, 165.1, cm, 08/04/19 8:55:00 EST, Height Start Date: 08/04/19 Status: OrderedFlovent HFA 110 mcg/inh inhalation aerosol 2 puffs, Inhalation, 2 times a day, rinse mouth and throat after use, # 12 Gm, 1 Refills, Maintenance, 08/14/19 12:08:00 EST, Aerosol, [facility]/pharmacy #[id number], 165.1, cm, 08/04/19 8:55:00 EST, Height Start Date: 08/14/19 Status: OrderedFLUoxetine 20 mg oral capsule 60 mg, 3, capsule, By Mouth, Daily, # 270 capsule, Refills 3, Tot. Refills 3, Maintenance, 07/20/19 8:49:52 EST, Route to Pharmacy Electronically, [facility]/pharmacy #[id number], 165.1, cm, 07/20/19 8:25:18 EST, [...] tablet, 0 Refills, Maintenance, 08/04/19 9:20:00 EST, [facility]/pharmacy #[id number], 165.1, cm, 08/04/19 8:55:00 EST, Height [...] 3 Refills, Maintenance, 07/20/19 8:49:52 EST, Tablet, [facility]/pharmacy #[id number], 1 tablet By Mouth Daily, 165.1, [...]
--- OUTSIDE RECORDS SUMMARY | 2022-05-06 01:03 | XMS_ITS | Continuity of Care Document ---
:1975 Author Organization [facility] Address [address] [place] [address]- Care Team Providers Name Role Phone Alejandro Rogers MD Primary Care Physician [facility]counter [facility] Date(s): 08/04/19 - 08/14/19 [facility] [address] [place] [address]- [facility] Attending Physician: Admtr, Ar8 Allergies, Adverse Reactions, Alerts Substance Reaction Severity [...] Toxoid Vaccine (oldterm) 10/03/06 Given 1Admin Note: [facility] HospitalLseukw8Odccp Note: [id number] Note: SANOFI PASTEUR Medications ASA/butalbital/caffeine 325 mg-50 mg-40 mg oral tablet 1 tablet, By Mouth, Every 4 hours, PRN for pain, 1 tablet every 4 hours PRN for headaches fax # [phone], # 30 tablet, 5 Refills, Maintenance, 12/16/17 11:20:08 EDT, Tablet Start Date: 12/16/17 Status: OrderedCPAP Armoured Car Escort, 05/19/18 8:04:57 EDT, Compound Start Date: 05/19/18 Status: OrderedDiflucan 150 mg oral tablet 1 tablet = 150 mg, By Mouth, Once, # 1 tablet, 0 Refills, Soft Stop, 08/04/19 9:21:00 EST, Tablet, [facility]/pharmacy #[id number], 165.1, cm, 08/04/19 8:55:00 EST, Height Start Date: 08/04/19 Status: OrderedFlonase 50 mcg/inh nasal spray 1 sprays, Nares, Both, 2 times a day, in each nostril, # 16 Gm, 6 Refills, Maintenance, 08/04/19 14:13:00 EST, [place], [facility]/pharmacy #[id number], 1 sprays Nares, Both 2 times a day,Instr:in each nostril, 165.1, cm, 08/04/19 8:55:00 EST, Height Start Date: 08/04/19 Status: OrderedFlovent HFA 110 mcg/inh inhalation aerosol 2 puffs, Inhalation, 2 times a day, rinse mouth and throat after use, # 12 Gm, 1 Refills, Maintenance, 08/14/19 12:08:00 EST, Aerosol, [facility]/pharmacy #[id number], 165.1, cm, 08/04/19 8:55:00 EST, Height Start Date: 08/14/19 Status: OrderedFLUoxetine 20 mg oral capsule 60 mg, 3, capsule, By Mouth, Daily, # 270 capsule, Refills 3, Tot. Refills 3, Maintenance, 07/20/19 8:49:52 EST, Route to Pharmacy Electronically, [facility]/pharmacy #[id number], 165.1, cm, 07/20/19 8:25:18 EST, [...]
--- OUTSIDE RECORDS SUMMARY | 2022-05-06 01:04 | XMS_ITS | Continuity of Care Document ---
:1975 Author Organization [facility] Address [address] [place] [address], [address] [place] [address]- Care Team Providers Name Role Phone Alejandro Rogers MD Primary Care Physician [place] [facility] [place] [facility] [employer] [address] [address]- [facility] Attending Physician: Kacie Huff MD Referring Physician: Alejandro Rogers MD Allergies, Adverse Reactions, Alerts Substance Reaction [...] Toxoid Vaccine (oldterm) 10/03/06 Given 1Admin Note: [employer] [facility] HospitalLavmdr5Ogycm Note: [id number] Note: SANOFI PASTEUR Medications ASA/butalbital/caffeine 325 mg-50 mg-40 mg oral tablet 1 tablet, By Mouth, Every 4 hours, PRN for pain, 1 tablet every 4 hours PRN for headaches fax # [phone], # 30 tablet, 5 Refills, Maintenance, 12/16/17 11:20:08 EDT, Tablet Start Date: 12/16/17 Status: OrderedCPAP Sleep Tech, 05/19/18 8:04:57 EDT, Compound Start Date: 05/19/18 Status: Orderedcyclobenzaprine 10 mg oral tablet 10 mg, 1, tablet, By Mouth, Daily at bedtime, # 14 tablet, Refills 0, Tot. Refills 0, Maintenance, 11/06/19 15:45:00 EDT, Route to Pharmacy Electronically, [facility]/pharmacy #[id number], 165.1, cm, 09/14/19 9:02:00 EST, Height, 123, kg, 09/14/19 9:02:00 EST, Dry... Start Date: 11/06/19 Status: OrderedDiflucan 150 mg oral tablet 1 tablet = 150 mg, By Mouth, Once, # 1 tablet, 0 Refills, Soft Stop, 08/04/19 9:21:00 EST, Tablet, [facility]/pharmacy #[id number], 165.1, cm, 08/04/19 8:55:00 EST, Height Start Date: 08/04/19 Status: OrderedFlonase 50 mcg/inh nasal spray 1 sprays, Nares, Both, 2 times a day, in each nostril, # 16 Gm, 6 Refills, Maintenance, 08/04/19 14:13:00 EST, [place], [facility]/pharmacy #[id number], 1 sprays Nares, Both 2 times a day,Instr:in each nostril, 165.1, cm, 08/04/19 8:55:00 EST, Height Start Date: 08/04/19 Status: OrderedFlovent HFA 110 mcg/inh inhalation aerosol 2 puffs, Inhalation, 2 times a day, rinse mouth and throat after use, # 12 Gm, 1 Refills, Maintenance, 08/14/19 12:08:00 EST, Aerosol, [facility]/pharmacy #[id number], 165.1, cm, 08/04/19 8:55:00 EST, Height Start Date: 08/14/19 Status: OrderedFLUoxetine 20 mg oral capsule 60 mg, 3, capsule, By Mouth, Daily, # 270 capsule, Refills 3, Tot. Refills 3, Maintenance, 07/20/19 8:49:52 EST, Route to Pharmacy Electronically, [facility]/pharmacy #[id number], 165.1, cm, 07/20/19 8:25:18 [...] tablet, 0 Refills, Maintenance, 08/04/19 9:20:00 EST, [facility]/pharmacy #[id number], 165.1, cm, 08/04/19 8:55:00 [...] 3 Refills, Maintenance, 07/20/19 8:49:52 EST, Tablet, [facility]/pharmacy #[id number], 1 tablet By Mouth [...]
--- OUTSIDE RECORDS SUMMARY | 2022-05-06 01:04 | XMS_ITS | Continuity of Care Document ---
:1975 Author Organization [facility] Address [address] [place] [address]- Care Team Providers Name Role Phone Alejandro Rogers MD Primary Care Physician [facility] Date[facility]s): 07/23/19 - 07/23/[address] [address]- [facility] Attending Physician: Alejandro Rogers MD Allergies, Adverse Reactions, [...] Toxoid Vaccine (oldterm) 10/03/06 Given 1Admin Note: [employer] [facility] HospitalUxniuk1Blxju Note: [id number] Note: SANOFI PASTEUR Medications ASA/butalbital/caffeine 325 mg-50 mg-40 mg oral tablet 1 tablet, By Mouth, Every 4 hours, PRN for pain, 1 tablet every 4 hours PRN for headaches fax # [phone], # 30 tablet, 5 Refills, Maintenance, 12/16/17 11:20:08 EDT, Tablet Start Date: 5/14/18 Status: OrderedCPAP Java Core Developer, 05/19/18 8:04:57 EDT, Compound Start Date: 05/19/18 Status: OrderedFlovent HFA 110 mcg/inh inhalation aerosol 2 puffs, Inhalation, 2 times a day, rinse mouth and throat after use, # 12 Gm, 1 Refills, Maintenance, 07/20/19 8:51:31 EST, Aerosol, [facility]/pharmacy #[id number], 165.1, cm, 07/20/19 8:25:18 EST, Height Start Date: 07/20/19 Status: OrderedFLUoxetine 20 mg oral capsule 60 mg, 3, capsule, By Mouth, Daily, # 270 capsule, Refills 3, Tot. Refills 3, Maintenance, 07/20/19 8:49:52 EST, Route to Pharmacy Electronically, [facility]/pharmacy #[id number], 165.1, cm, 07/20/19 8:25:18 EST, Height Start Date: 07/20/19 Status: OrderedKlonoPIN 0.5 mg oral tablet 1 tablet = 0.5 mg, By Mouth, 2 times a day, # 60 tablet, 5 Refills, Maintenance, 06/09/19 16:13:49 EST, Tablet Start Date: 06/09/19 Status: OrderedMirena 52 mg intrauteral device 1 each = 52 mg, Once, 0 Refills, Maintenance, 07/25/16 15:52:04 Start Date: 07/25/16 Status: OrderedVentolin HFA 108 mcg/inh inhalation aerosol [...]
--- OUTSIDE RECORDS SUMMARY | 2022-05-06 01:04 | XMS_ITS | Continuity of Care Document ---
:1975 Author Organization [facility] Address [address] [place] [address]- Care Team Providers Name Role Phone Sue MARTINEZ, Alejandro Amaya Primary Care Physician [facility] Date[facility]s): 05/04/20 - 11/16/20 [facility] [address] [place] [address]- Attending Physician: Maude Frausto NP Referring Physician: Alejandro Rogers MD Allergies, Adverse [...] Toxoid Vaccine (oldterm) 10/03/06 Given 1Admin Note: [email or web address] Note: [id number] Note: SANOFI PASTEUR Medications ASA/butalbital/caffeine 325 mg-50 mg-40 mg oral tablet 1 tablet, By Mouth, Every 4 hours, PRN for pain, 1 tablet every 4 hours PRN for headaches fax # [phone], # 30 tablet, 5 Refills, Maintenance, 12/16/17 11:20:08 EDT, Tablet Start Date: 12/16/17 Status: OrderedCPAP Malariologist, 05/19/18 8:04:57 EDT, Compound Start Date: 05/19/18 Status: Orderedcyclobenzaprine 10 mg oral tablet 10 mg, By Mouth, Every 8 hours, PRN, Muscle Spasms, # 21 tablet, Refills 0, Tot. Refills 0, Maintenance, Pain , Moderate, 09/16/20 14:52:00 EST, Route to Pharmacy Electronically, [facility]/pharmacy #[id number], Partial fill upon patient request if the prescriptio... Start Date: 09/16/20 Status: OrderedFlonase 50 mcg/inh nasal spray 1 sprays, Nares, Both, 2 times a day, in each nostril, # 48 mL, 1 Refills, Maintenance, 01/28/20 10:50:00 EDT, [place], [facility]/pharmacy #[id number], 1 sprays Nares, Both 2 times a day,Instr:in each nostril, 165.1, cm, 01/26/20 10:01:00 EDT, Height, 123, kg, 09/05... Start Date: 01/28/20 Status: OrderedFlovent HFA 110 mcg/inh inhalation aerosol 2 puffs, Inhalation, 2 times a day, rinse mouth and throat after use, # 12 Gm, 1 Refills, Maintenance, 08/14/19 12:08:00 EST, Aerosol, [facility]/pharmacy #[id number], 165.1, cm, 08/04/19 8:55:00 EST, Height Start Date: 08/14/19 Status: OrderedFLUoxetine 20 mg oral capsule 60 mg, 3, capsule, By Mouth, Daily, # 270 capsule, Refills 3, Tot. Refills 3, Maintenance, 07/20/19 8:49:52 EST, Route to Pharmacy Electronically, [facility]/pharmacy #[id number], 165.1, cm, 07/20/19 8:25:18 EST, Height [...] 0 Refills, Maintenance, 07/11/20 10:01:00 EST, Tablet, [facility]/pharmacy #[id number], 165.1, cm, 06/27/20 9:45:00 EST, Height, 125.8, kg, 06/27/20 9:45:00 EST, Dry Weight Start Date: 07/11/20 Status: OrderedMirena 52 mg intrauteral device 1 each = 52 mg, Once, 0 Refills, Maintenance, 07/25/16 15:52:04 Start Date: 07/25/16 Status: OrderedMyrbetriq 25 mg oral tablet, extended release 1 tablet = 25 mg, By Mouth, Daily, # 30 tablet, 5 Refills, Maintenance, 09/26/20 10:20:00 EST, [facility]/pharmacy #[id number], Partial fill upon patient request if the prescription is for a schedule II opioid drug., 165.1, cm, 09/16/20 14:04:00 EST, Height, 125.8... Start Date: 09/26/20 Status: Orderedoxybutynin 10 mg/24 hr oral tablet, extended release 1 tablet = 10 mg, By Mouth, Daily, # 30 tablet, 5 Refills, Maintenance, 06/27/20 10:16:00 EST, ER Tablet, [facility]/pharmacy #[id number], Partial fill upon patient request, 165.1, [...] term(Confirmed) Active Rhinitis(Confirmed) Active Septate uterus(Confirmed) Active 1c2008 no polyps or [id number] Andrzej Social History Social History Type Response Smoking Status Never smoker entered on: 10/27/13 Sex
--- OUTSIDE RECORDS SUMMARY | 2022-05-06 01:04 | XMS_ITS | Continuity of Care Document ---
:1975 Author Organization [facility] Adult Address [address] [place] [address]- Care Team Providers Name Role Phone Sue MARTINEZ, Alejandro Amaya Primary Care Physician [facility] Date[facility]s): 08/01/20 - 08/31/20 [facility] [address] [place] [address]- Allergies, Adverse Reactions, Alerts Substance Reaction Severity [...] Toxoid Vaccine (oldterm) 10/03/06 Given 1Admin Note: [id number] Note: [id number] Note: SANOFI PASTEUR Medications ASA/butalbital/caffeine 325 mg-50 mg-40 mg oral tablet 1 tablet, By Mouth, Every 4 hours, PRN for pain, 1 tablet every 4 hours PRN for headaches fax # [phone], # 30 tablet, 5 Refills, Maintenance, 12/16/17 11:20:08 EDT, Tablet Start Date: 12/16/17 Status: OrderedCPAP Concrete Pouring Supervisor, 05/19/18 8:04:57 EDT, Compound Start Date: 05/19/18 Status: OrderedFlonase 50 mcg/inh nasal spray 1 sprays, Nares, Both, 2 times a day, in each nostril, # 48 mL, 1 Refills, Maintenance, 01/28/20 10:50:00 EDT, [place], [facility]/pharmacy #[id number], 1 sprays Nares, Both 2 times a day,Instr:in each nostril, 165.1, cm, 01/26/20 10:01:00 EDT, Height, 123, kg, 09/05... Start Date: 01/28/20 Status: OrderedFlovent HFA 110 mcg/inh inhalation aerosol 2 puffs, Inhalation, 2 times a day, rinse mouth and throat after use, # 12 Gm, 1 Refills, Maintenance, 08/14/19 12:08:00 EST, Aerosol, [facility]/pharmacy #[id number], 165.1, cm, 08/04/19 8:55:00 EST, Height Start Date: 08/14/19 Status: OrderedFLUoxetine 20 mg oral capsule 60 mg, 3, capsule, By Mouth, Daily, # 270 capsule, Refills 3, Tot. Refills 3, Maintenance, 07/20/19 8:49:52 EST, Route to Pharmacy Electronically, [facility]/pharmacy #[id number], 165.1, cm, 07/20/19 8:25:18 EST, Height Start Date: 07/20/19 Status: OrderedKlonoPIN 0.5 mg oral tablet 1 tablet = 0.5 mg, By Mouth, 2 times a day, # 60 tablet, 0 Refills, Maintenance, 07/11/20 10:01:00 EST, Tablet, [facility]/pharmacy #[id number], 165.1, cm, 06/27/20 9:45:00 EST, [...] Septate uterus(Confirmed) Active 1c2008 no polyps or [id number] [facility] Social History Social History Type Response Smoking Status Never smoker entered on: 10/27/13 Sex
--- OUTSIDE RECORDS SUMMARY | 2022-05-06 01:04 | XMS_ITS | Continuity of Care Document ---
:1975 Author Organization [facility] Address [address] [place] [address]- Care Team Providers Name Role Phone Sue MARTINEZ, Alejandro Amaya Primary Care Physician Encounter [facility] Date(s): 03/13/21 - 04/12/21 [facility] [address] [place] [address]- Allergies, Adverse Reactions, Alerts Substance Reaction Severity [...] Toxoid Vaccine (oldterm) 10/03/06 Given 1Admin Note: [email or web address] Note: [id number] Note: SANOFI PASTEUR Medications ASA/butalbital/caffeine 325 mg-50 mg-40 mg oral tablet 1 tablet, By Mouth, Every 4 hours, PRN for pain, 1 tablet every 4 hours PRN for headaches fax # [phone], # 30 tablet, 5 Refills, Maintenance, 12/16/17 11:20:08 EDT, Tablet Start Date: 12/16/17 Status: OrderedCPAP Rn Perinatal, 05/19/18 8:04:57 EDT, Compound Start Date: 05/19/18 Status: OrderedFlonase 50 mcg/inh nasal spray 1 sprays, Nares, Both, 2 times a day, in each nostril, # 48 mL, 1 Refills, Maintenance, 01/28/20 10:50:00 EDT, [place], [facility]/pharmacy #[id number], 1 sprays Nares, Both 2 times a day,Instr:in each nostril, 165.1, cm, 01/26/20 10:01:00 EDT, Height, 123, kg, 09/05... Start Date: 01/28/20 Status: OrderedFlovent HFA 110 mcg/inh inhalation aerosol 2 puffs, Inhalation, 2 times a day, rinse mouth and throat after use, # 12 Gm, 1 Refills, Maintenance, 02/10/21 8:24:00 EDT, Aerosol, [facility]/pharmacy #[id number], 165.1, cm, 02/10/21 8:00:00 EDT, Height, 125.8,kg, 06/27/20 9:45:00 EST, Dry Weight Start Date: 02/10/21 Status: OrderedFLUoxetine 20 mg oral capsule 60 mg, 3, capsule, By Mouth, Daily, # 270 capsule, Refills 3, Tot. Refills 3, Maintenance, 07/20/19 8:49:52 EST, Route to Pharmacy Electronically, [facility]/pharmacy #[id number], 165.1, cm, 07/20/19 8:25:18 EST, [...] 0 Refills, Maintenance, 07/11/20 10:01:00 EST, Tablet, [facility]/pharmacy #[id number], 165.1, cm, 06/27/20 9:45:00 EST, Height, 125.8, kg, 06/27/20 9:45:00 EST, Dry Weight Start Date: 07/11/20 Status: OrderedMirena 52 mg intrauteral device 1 each = 52 mg, Once, 0 Refills, Maintenance, 07/25/16 15:52:04 Start Date: 07/25/16 Status: OrderedMyrbetriq 25 mg oral tablet, extended release 1 tablet = 25 mg, By Mouth, Daily, # 30 tablet, 5 Refills, Maintenance, 09/26/20 10:20:00 EST, [facility]/pharmacy #[id number], Partial fill upon patient request if the prescription is for a schedule II opioid drug., 165.1, cm, 09/16/20 14:04:00 EST, Height, 125.8... Start Date: 09/26/20 Status: OrderedTylenol 325 mg oral capsule 2 capsule = 650 mg, By Mouth, Every 4 hours, PRN as needed for pain, # 90 capsule, 0 Refills, Maintenance, 03/23/20 8:44:00 EDT, Capsule, [facility]/pharmacy #[id number], 165.1, cm, 03/23/20 7:03:00 EDT, Height, [...] Septate uterus(Confirmed) Active 2008 no polyps or [id number] Leticia-Juju Social History Social History Type Response Smoking Status Never smoker entered on: 10/27/13 Sex
--- OUTSIDE RECORDS SUMMARY | 2022-05-06 01:04 | XMS_ITS | Continuity of Care Document ---
:1975 Author Organization [facility] Address [address] [place] [address]- Care Team Providers Name Role Phone Sue MARTINEZ, Alejandro Amaya Primary Care Physician [facility] Date[facility]s): 11/24/20 - 12/24/20 [facility] [address] [place] [address]- Attending Physician: Admtr, Ar8 Allergies, Adverse Reactions, [...] Toxoid Vaccine (oldterm) 10/03/06 Given 1Admin Note: [email or web address] Note: [id number] Note: SANOFI PASTEUR Medications ASA/butalbital/caffeine 325 mg-50 mg-40 mg oral tablet 1 tablet, By Mouth, Every 4 hours, PRN for pain, 1 tablet every 4 hours PRN for headaches fax # [phone], # 30 tablet, 5 Refills, Maintenance, 12/16/17 11:20:08 EDT, Tablet Start Date: 12/16/17 Status: OrderedCPAP Gut Carrier, 05/19/18 8:04:57 EDT, Compound Start Date: 05/19/18 Status: Orderedcyclobenzaprine 10 mg oral tablet 10 mg, By Mouth, Every 8 hours, PRN, Muscle Spasms, # 21 tablet, Refills 0, Tot. Refills 0, Maintenance, Pain , Moderate, 09/16/20 14:52:00 EST, Route to Pharmacy Electronically, [facility]/pharmacy #[id number], Partial fill upon patient request if the prescriptio... Start Date: 09/16/20 Status: OrderedFlonase 50 mcg/inh nasal spray 1 sprays, Nares, Both, 2 times a day, in each nostril, # 48 mL, 1 Refills, Maintenance, 01/28/20 10:50:00 EDT, [place], [facility]/pharmacy #[id number], 1 sprays Nares, Both 2 times a day,Instr:in each nostril, 165.1, cm, 01/26/20 10:01:00 EDT, Height, 123, kg, 09/05... Start Date: 01/28/20 Status: OrderedFlovent HFA 110 mcg/inh inhalation aerosol 2 puffs, Inhalation, 2 times a day, rinse mouth and throat after use, # 12 Gm, 1 Refills, Maintenance, 08/14/19 12:08:00 EST, Aerosol, [facility]/pharmacy #[id number], 165.1, cm, 08/04/19 8:55:00 EST, Height Start Date: 08/14/19 Status: OrderedFLUoxetine 20 mg oral capsule 60 mg, 3, capsule, By Mouth, Daily, # 270 capsule, Refills 3, Tot. Refills 3, Maintenance, 07/20/19 8:49:52 EST, Route to Pharmacy Electronically, [facility]/pharmacy #[id number], 165.1, cm, 07/20/19 [...] 0 Refills, Maintenance, 07/11/20 10:01:00 EST, Tablet, [facility]/pharmacy #[id number], 165.1, cm, 06/27/20 9:45:00 [...] tablet, 5 Refills, Maintenance, 09/26/20 10:20:00 EST, [facility]/pharmacy #[id number], Partial fill upon patient request if the prescription is for a schedule II opioid drug., 165.1, cm, 09/16/20 14:04:00 EST, Height, 125.8... Start Date: 09/26/20 Status: Orderedoxybutynin 10 mg/24 hr oral tablet, extended release 1 tablet = 10 mg, By Mouth, Daily, # 30 tablet, 5 Refills, Maintenance, 06/27/20 10:16:00 EST, ER Tablet, [facility]/pharmacy #[id number], Partial fill upon patient request, 165.1, [...] 1 Refills, Maintenance, 07/11/20 10:00:00 EST, Tablet, [facility]/pharmacy #[id number], 1 tablet By Mouth Daily, 165.1, [...] Septate uterus(Confirmed) Active 2008 no polyps or [id number] Andrzej Social History Social History Type Response Smoking Status Never smoker entered on: 10/27/13 Sex
--- OUTSIDE RECORDS SUMMARY | 2022-05-06 01:04 | XMS_ITS | Continuity of Care Document ---
:1975 Author Organization [facility] Address [address] [place] [address]- Care Team Providers Name Role Phone Alejandro Rogers MD Primary Care Physician [facility] Date[facility]s): 03/22/20 - 04/21/20 [facility] [address] [place] [address]- [facility] Allergies, Adverse Reactions, Alerts Substance Reaction Severity [...] Toxoid Vaccine (oldterm) 10/03/06 Given 1Admin Note: [employer] [facility] HospitalXksiah7Uagmk Note: [id number] Note: SANOFI PASTEUR Medications ASA/butalbital/caffeine 325 mg-50 mg-40 mg oral tablet 1 tablet, By Mouth, Every 4 hours, PRN for pain, 1 tablet every 4 hours PRN for headaches fax # [phone], # 30 tablet, 5 Refills, Maintenance, 12/16/17 11:20:08 EDT, Tablet Start Date: 12/16/17 Status: OrderedCPAP Product/Industry Consultant, 05/19/18 8:04:57 EDT, Compound Start Date: 05/19/18 Status: OrderedFlonase 50 mcg/inh nasal spray 1 sprays, Nares, Both, 2 times a day, in each nostril, # 48 mL, 1 Refills, Maintenance, 01/28/20 10:50:00 EDT, [place], [facility]/pharmacy #[id number], 1 sprays Nares, Both 2 times a day,Instr:in each nostril, 165.1, cm, 01/26/20 10:01:00 EDT, Height, 123, kg, 09/05... Start Date: 01/28/20 Status: OrderedFlovent HFA 110 mcg/inh inhalation aerosol 2 puffs, Inhalation, 2 times a day, rinse mouth and throat after use, # 12 Gm, 1 Refills, Maintenance, 08/14/19 12:08:00 EST, Aerosol, [facility]/pharmacy #[id number], 165.1, cm, 08/04/19 8:55:00 EST, Height Start Date: 08/14/19 Status: OrderedFLUoxetine 20 mg oral capsule 60 mg, 3, capsule, By Mouth, Daily, # 270 capsule, Refills 3, Tot. Refills 3, Maintenance, 07/20/19 8:49:52 EST, Route to Pharmacy Electronically, [facility]/pharmacy #[id number], 165.1, cm, 07/20/19 8:25:18 EST, Height Start Date: 07/20/19 Status: Orderedibuprofen 600 mg oral tablet 600 mg, 1, tablet, By Mouth, Every 6 hours, PRN, # 40 tablet, Refills 0, Tot. Refills 0, Maintenance, for pain, 03/23/20 8:44:00 EDT, Route to Pharmacy Electronically, [facility]/pharmacy #[id number], 165.1, cm, 03/23/20 7:03:00 EDT, Height, 125.8, kg, 03/23/20 7:... Start Date: 03/23/20 Status: Orderedibuprofen 800 mg oral tablet 800 mg, 1, tablet, By Mouth, 3 times a day, PRN, with food or milk, # 42 tablet, Refills 0, Tot. Refills 0, Maintenance, for pain, 01/08/20 15:50:00 EDT, Route to Pharmacy Electronically, [facility]/pharmacy #[id number], 165.1, cm, 01/08/20 15:06:00 EDT, Height, 1... Start Date: 01/08/20 Stop Date: 01/22/20 Status: OrderedKlonoPIN 0.5 mg oral tablet 1 tablet = 0.5 mg, By Mouth, 2 times a day, # 60 tablet, 5 Refills, Maintenance, 06/09/19 16:13:49 EST, Tablet Start Date: 06/09/19 Status: OrderedMirena 52 mg intrauteral device 1 each = 52 mg, Once, 0 Refills, Maintenance, 07/25/16 15:52:04 Start Date: 07/25/16 Status: OrderedTylenol 325 mg oral capsule 2 capsule = 650 mg, By Mouth, Every 4 hours, PRN as needed for pain, # 90 capsule, 0 Refills, Maintenance, 03/23/20 8:44:00 EDT, Caps[place], [facility]/pharmacy #[id number], 165.1, cm, 03/23/20 7:03:00 EDT, Height, [...] 3 Refills, Maintenance, 07/20/19 8:49:52 EST, Tablet, [facility]/pharmacy #[id number], 1 tablet By Mouth Daily, 165.1, [...]
--- OUTSIDE RECORDS SUMMARY | 2022-05-06 01:04 | XMS_ITS | Continuity of Care Document ---
:1975 Author Organization [facility] Adult Address [address] [place] [address]- Care Team Providers Name Role Phone Sue MARTINEZ, Alejandro Amaya Primary Care Physician [facility] Date[facility]s): 09/16/20 - 10/16/20 [facility] [address] [place] [address]- Allergies, Adverse Reactions, Alerts Substance Reaction Severity [...] Toxoid Vaccine (oldterm) 10/03/06 Given 1Admin Note: [employer] [id number] Note: [id number] Note: SANOFI PASTEUR Medications ASA/butalbital/caffeine 325 mg-50 mg-40 mg oral tablet 1 tablet, By Mouth, Every 4 hours, PRN for pain, 1 tablet every 4 hours PRN for headaches fax # [phone], # 30 tablet, 5 Refills, Maintenance, 12/16/17 11:20:08 EDT, Tablet Start Date: 12/16/17 Status: OrderedCPAP Manager Game, 05/19/18 8:04:57 EDT, Compound Start Date: 05/19/18 Status: Orderedcyclobenzaprine 10 mg oral tablet 10 mg, By Mouth, Every 8 hours, PRN, Muscle Spasms, # 21 tablet, Refills 0, Tot. Refills 0, Maintenance, Pain , Moderate, 09/16/20 14:52:00 EST, Route to Pharmacy Electronically, [facility]/pharmacy #[id number], Partial fill upon patient request if the prescriptio... Start Date: 09/16/20 Status: OrderedFlonase 50 mcg/inh nasal spray 1 sprays, Nares, Both, 2 times a day, in each nostril, # 48 mL, 1 Refills, Maintenance, 01/28/20 10:50:00 EDT, [place], [facility]/pharmacy #[id number], 1 sprays Nares, Both 2 times a day,Instr:in each nostril, 165.1, cm, 01/26/20 10:01:00 EDT, Height, 123, kg, 09/05... Start Date: 01/28/20 Status: OrderedFlovent HFA 110 mcg/inh inhalation aerosol 2 puffs, Inhalation, 2 times a day, rinse mouth and throat after use, # 12 Gm, 1 Refills, Maintenance, 08/14/19 12:08:00 EST, Aerosol, [facility]/pharmacy #[id number], 165.1, cm, 08/04/19 8:55:00 EST, Height Start Date: 08/14/19 Status: OrderedFLUoxetine 20 mg oral capsule 60 mg, 3, capsule, By Mouth, Daily, # 270 capsule, Refills 3, Tot. Refills 3, Maintenance, 07/20/19 8:49:52 EST, Route to Pharmacy Electronically, [facility]/pharmacy #[id number], 165.1, cm, 07/20/19 8:25:18 EST, Height [...] 0 Refills, Maintenance, 07/11/20 10:01:00 EST, Tablet, [facility]/pharmacy #[id number], 165.1, cm, 06/27/20 9:45:00 EST, Height, 125.8, kg, 06/27/20 9:45:00 EST, Dry Weight Start Date: 07/11/20 Status: OrderedMirena 52 mg intrauteral device 1 each = 52 mg, Once, 0 Refills, Maintenance, 07/25/16 15:52:04 Start Date: 07/25/16 Status: OrderedMyrbetriq 25 mg oral tablet, extended release 1 tablet = 25 mg, By Mouth, Daily, # 30 tablet, 5 Refills, Maintenance, 09/26/20 10:20:00 EST, [facility]acy [id number], Partial fill upon patient [...] Septate uterus(Confirmed) Active 2008 no polyps or [id number] [place] Social History Social History Type Response Smoking Status Never smoker entered on: 10/27/13 Sex
--- OUTSIDE RECORDS SUMMARY | 2022-05-06 01:04 | XMS_ITS | Continuity of Care Document ---
:1975 Author Organization [facility] Address [address] [place] [address], [address] [address]- Care Team Providers Name Role Phone Alejandro Rogers MD Primary Care Physician Encounter 04/22/20 - 04/29/20 [facility] [address], [address] [address]- [facility] Attending Physician: Lisbet PARK, Maude Barkley Admitting Physician: Lisbet PARK, Maude Barkley Referring Physician: Lisbet PARK, Maude Barkley Allergies, Adverse Reactions, Alerts Substance Reaction Severity [...] Toxoid Vaccine (oldterm) 10/03/06 Given 1Admin Note: [email or web address] Note: [id number] Note: SANOFI PASTEUR Medications ASA/butalbital/caffeine 325 mg-50 mg-40 mg oral tablet 1 tablet, By Mouth, Every 4 hours, PRN for pain, 1 tablet every 4 hours PRN for headaches fax # [phone], # 30 tablet, 5 Refills, Maintenance, 12/16/17 11:20:08 EDT, Tablet Start Date: 12/16/17 Status: OrderedCPAP Criminal Investigator Customs, 05/19/18 8:04:57 EDT, Compound Start Date: 05/19/18 Status: OrderedFlonase 50 mcg/inh nasal spray 1 sprays, Nares, Both, 2 times a day, in each nostril, # 48 mL, 1 Refills, Maintenance, 01/28/20 10:50:00 EDT, [place], [facility]/pharmacy #[id number], 1 sprays Nares, Both 2 times a day,Instr:in each nostril, 165.1, cm, 01/26/20 10:01:00 EDT, Height, 123, kg, 09/05... Start Date: 01/28/20 Status: OrderedFlovent HFA 110 mcg/inh inhalation aerosol 2 puffs, Inhalation, 2 times a day, rinse mouth and throat after use, # 12 Gm, 1 Refills, Maintenance, 08/14/19 12:08:00 EST, Aerosol, [facility]/pharmacy #[id number], 165.1, cm, 08/04/19 8:55:00 EST, Height Start Date: 08/14/19 Status: OrderedFLUoxetine 20 mg oral capsule 60 mg, 3, capsule, By Mouth, Daily, # 270 capsule, Refills 3, Tot. Refills 3, Maintenance, 07/20/19 8:49:52 EST, Route to Pharmacy Electronically, [facility]/pharmacy #[id number], 165.1, cm, 07/20/19 8:25:18 EST, Height Start Date: 07/20/19 Status: Orderedibuprofen 600 mg oral tablet 600 mg, 1, tablet, By Mouth, Every 6 hours, PRN, # 40 tablet, Refills 0, Tot. Refills 0, Maintenance, for pain, 03/23/20 8:44:00 EDT, Route to Pharmacy Electronically, [facility]/pharmacy #[id number], 165.1, cm, 03/23/20 7:03:00 EDT, Height, 125.8, kg, 03/23/20 7:... Start Date: 03/23/20 Status: Orderedibuprofen 800 mg oral tablet 800 mg, 1, tablet, By Mouth, 3 times a day, PRN, with food or milk, # 42 tablet, Refills 0, Tot. Refills 0, Maintenance, for pain, 01/08/20 15:50:00 EDT, Route to Pharmacy Electronically, [facility]/pharmacy #[id number], 165.1, cm, 01/08/20 15:06:00 EDT, Height, [...] 0 Refills, Maintenance, 03/23/20 8:44:00 EDT, Capsule, [facility]/pharmacy #[id number], 165.1, cm, 03/23/20 7:03:00 EDT, [...] 3 Refills, Maintenance, 07/20/19 8:49:52 EST, Tablet, [facility]/pharmacy #[id number], 1 tablet By Mouth Daily, [...]
--- OUTSIDE RECORDS SUMMARY | 2022-05-06 01:04 | XMS_ITS | Continuity of Care Document ---
:1975 Author Organization [facility] [employer] Address [address] [place] [address], [address] [place] [phone]- Care Team Providers Name Role Phone Sue MARTINEZ, Alejandro Amaya Primary Care Physician [place] [facility] Date(s): 08/16/20 - 09/15/20 [facility] [address] [place] [address], [address] [place] [id number] Attending Physician: Lorna Jay Admitting Physician: Lorna [...] Toxoid Vaccine (oldterm) 10/03/06 Given 1Admin Note: [facility] Note: [id number] Note: SANOFI PASTEUR Medications ASA/butalbital/caffeine 325 mg-50 mg-40 mg oral tablet 1 tablet, By Mouth, Every 4 hours, PRN for pain, 1 tablet every 4 hours PRN for headaches fax # [phone], # 30 tablet, 5 Refills, Maintenance, 12/16/17 11:20:08 EDT, Tablet Start Date: 12/16/17 Status: OrderedCPAP Child Care Development Specialist, 05/19/18 8:04:57 EDT, Compound Start Date: 05/19/18 Status: OrderedFlonase 50 mcg/inh nasal spray 1 sprays, Nares, Both, 2 times a day, in each nostril, # 48 mL, 1 Refills, Maintenance, 01/28/20 10:50:00 EDT, [place], [facility]/pharmacy #[id number], 1 sprays Nares, Both 2 times a day,Instr:in each nostril, 165.1, cm, 01/26/20 10:01:00 EDT, Height, 123, kg, 09/05... Start Date: 01/28/20 Status: OrderedFlovent HFA 110 mcg/inh inhalation aerosol 2 puffs, Inhalation, 2 times a day, rinse mouth and throat after use, # 12 Gm, 1 Refills, Maintenance, 08/14/19 12:08:00 EST, Aerosol, [facility]/pharmacy #[id number], 165.1, cm, 08/04/19 8:55:00 EST, Height Start Date: 08/14/19 Status: OrderedFLUoxetine 20 mg oral capsule 60 mg, 3, capsule, By Mouth, Daily, # 270 capsule, Refills 3, Tot. Refills 3, Maintenance, 07/20/19 8:49:52 EST, Route to Pharmacy Electronically, [facility]/pharmacy #[id number], 165.1, cm, 07/20/19 8:25:18 EST, Height Start Date: 07/20/19 Status: OrderedKlonoPIN 0.5 mg oral tablet 1 tablet = 0.5 mg, By Mouth, 2 times a day, # 60 tablet, 0 Refills, Maintenance, 07/11/20 10:01:00 EST, Tablet, [facility]/pharmacy #[id number], 165.1, cm, 06/27/20 9:45:00 EST, [...] Refills, Maintenance, 06/27/20 10:16:00 EST, ER Tablet, [facility]/pharmacy #[id number], Partial fill upon patient request, [...] 1 Refills, Maintenance, 07/11/20 10:00:00 EST, Tablet, [facility]/pharmacy #[id number], 1 tablet By Mouth Daily, 165.1, [...] term(Confirmed) Active Rhinitis(Confirmed) Active Septate uterus(Confirmed) Active 1colo 2008 no polyps or [id number] [facility] Social History Social History Type Response Smoking Status Never smoker entered on: 10/27/13 Sex
--- OUTSIDE RECORDS SUMMARY | 2022-05-06 01:04 | XMS_ITS | Continuity of Care Document ---
:1975 Author Organization [facility] Address [address] [place] [phone]- Care Team Providers Name Role Phone Sue MARTINEZ, Alejandro Amaya Primary Care Physician Encounter [facility] Date(s): 05/26/21 - 06/25/21 [facility] [address] [place] [id number]- Allergies, Adverse Reactions, Alerts Substance Reaction Severity [...] Toxoid Vaccine (oldterm) 10/03/06 Given 1Admin Note: [facility]2Admin Note: [id number] Note: SANOFI PASTEUR Medications ASA/butalbital/caffeine 325 mg-50 mg-40 mg oral tablet 1 tablet, By Mouth, Every 4 hours, PRN for pain, 1 tablet every 4 hours PRN for headaches fax # [phone], # 30 tablet, 5 Refills, Maintenance, 12/16/17 11:20:08 EDT, Tablet Start Date: 12/16/17 Status: OrderedCPAP Pump Machine Operator, 05/19/18 8:04:57 EDT, Compound Start Date: 05/19/18 Status: OrderedFlonase 50 mcg/inh nasal spray 1 sprays, Nares, Both, 2 times a day, in each nostril, # 48 mL, 1 Refills, Maintenance, 01/28/20 10:50:00 EDT, [place], [facility]/pharmacy #[id number], 1 sprays Nares, Both 2 times a day,Instr:in each nostril, 165.1, cm, 01/26/20 10:01:00 EDT, Height, 123, kg, 09/05... Start Date: 01/28/20 Status: OrderedFlovent HFA 110 mcg/inh inhalation aerosol 2 puffs, Inhalation, 2 times a day, rinse mouth and throat after use, # 12 Gm, 1 Refills, Maintenance, 02/10/21 8:24:00 EDT, Aerosol, [facility]/pharmacy #[id number], 165.1, cm, 02/10/21 8:00:00 EDT, [...] Mouth, Daily, # 90 tablet, 1 Refills, [facility] STORE [id number], 90, TAKE 1 TABLET BY MOUTH EVERYDAY, 165.1, cm, 03/21/21 7:14:00 EDT, Height, 125.8, kg, 06/27/20 9:45:00 EST, Dry Weight Start Date: 04/25/21 Status: OrderedKlonoPIN 0.5 mg oral tablet 1 tablet = 0.5 mg, By Mouth, 2 times a day, # 60 tablet, 0 Refills, Maintenance, 07/11/20 10:01:00 EST, Tablet, [facility]/pharmacy #[id number], 165.1, cm, 06/27/20 9:45:00 EST, Height, 125.8, kg, 06/27/20 9:45:00 EST, Dry Weight Start Date: 07/11/20 Status: OrderedMirena 52 mg intrauteral device 1 each = 52 mg, Once, 0 Refills, Maintenance, 07/25/16 15:52:04 Start Date: 07/25/16 Status: OrderedMyrbetriq 25 mg oral tablet, extended release 1 tablet = 25 mg, By Mouth, Daily, # 30 tablet, 5 Refills, Maintenance, 09/26/20 10:20:00 EST, [facility]/pharmacy #[id number], Partial fill upon patient request if the prescription is for a schedule II opioid drug., 165.1, cm, 09/16/20 14:04:00 EST, Height, 125.8... Start Date: 09/26/20 Status: OrderedTylenol 325 mg oral capsule 2 capsule = 650 mg, By Mouth, Every 4 hours, PRN as needed for pain, # 90 capsule, 0 Refills, Maintenance, 03/23/20 8:44:00 EDT, Capsule, [facility]/pharmacy #[id number], 165.1, cm, 03/23/20 7:03:00 EDT, [...] uterus(Confirmed) Active 1colo 2008 no polyps or [id number] Andrzej Social History Social History Type Response Smoking Status Never smoker entered on: 10/27/13 Sex
--- OUTSIDE RECORDS SUMMARY | 2022-05-06 01:04 | XMS_ITS | Continuity of Care Document ---
:[address] [facility] Address [address] [place] [address]- Care Team Providers Name Role Phone Sue MARTINEZ, Alejandro Amaya Primary Care Physician [place] [facility] [place] 04/06/22 - 04/13/22 [facility] [address] [place] [address]- Encounter Diagnosis Shoulder pain, right (Discharge Diagnosis) - 04/06/22 Numbness of hand (Discharge Diagnosis) - 04/06/22 Attending Physician: Radha Lai Allergies, Adverse Reactions, Alerts Substance Reaction Severity Status Demerol vomiting Active Immunizations Given and Recorded Vaccine Date Status Refusal Reason influenza virus vaccine, inactivated 06/03/21 Recorded influenza virus vaccine, inactivated 07/20/19 Given influenza virus vaccine, inactivated 05/27/18 Recorded influenza virus vaccine, inactivated 05/21/16 Given influenza virus vaccine, inactivated 05/27/15 Given SARS-CoV-2 (COVID-19) mRNA BNT-162b2 vac 05/21/21 Recorde d SARS-CoV-2 (COVID-19) mRNA BNT-162b2 vac 11/05/20 Recorde [...] Toxoid Vaccine (oldterm) 10/03/06 Given 1Admin Note: [facility]2Admin Note: [id number] Note: SANOFI PASTEUR Medications amLODIPine 5 mg oral tablet 5 mg, 1, tablet, By Mouth, Daily, # 90 tablet, Refills 1, Tot. Refills 1, Maintenance, 12/07/21 15:39:00 EDT, Route to Pharmacy Electronically, [facility]/pharmacy #[id number], Partial fill upon patient request if the prescription is for a schedule II opioid drug.... Start Date: 12/07/21 Status: OrderedASA/butalbital/caffeine 325 mg-50 mg-40 mg oral tablet 1 tablet, By Mouth, Every 4 hours, PRN for pain, 1 tablet every 4 hours PRN for headaches fax # [phone], # 30 tablet, 5 Refills, Maintenance, 12/16/17 11:20:08 EDT, Tablet Start Date: 12/16/17 Status: OrderedCPAP Control Panel Builder, 05/19/18 8:04:57 EDT, Compound Start Date: 05/19/18 Status: OrderedEpiPen 2-Maxi 0.3 mg injectable kit = 0.3 mg, Intramuscular, Once, # 1 each, 0 Refills, Soft Stop, 09/12/21 10:04:00 EST, [facility]/pharmacy #[id number], Partial fill upon patient request if the prescription is for a schedule II opioid drug., 165.1,cm, 03/21/21 7:14:00 EDT, Height, 125.8, kg, 06/06... Start Date: 09/12/21 Status: OrderedFlonase 50 mcg/inh nasal spray 1 sprays, Nares, Both, 2 times a day, in each nostril, # 48 mL, 1 Refills, Maintenance, 01/28/20 10:50:00 EDT, [place], [facility]/pharmacy #[id number], 1 sprays Nares, Both 2 times a day,Instr:in each nostril, 165.1, cm, 01/26/20 10:01:00 EDT, Height, 123, kg, 09/05... Start Date: 01/28/20 Status: OrderedFlovent HFA 110 mcg/inh inhalation aerosol 2 puffs, Inhalation, 2 times a day, rinse mouth and throat after use, # 12 Gm, 1 Refills, Maintenance, 02/10/21 8:24:00 EDT, Aerosol, [facility]/pharmacy #[id number], 165.1, cm, 02/10/21 8:00:00 EDT, Height, 125.8,kg, 06/27/20 9:45:00 EST, Dry Weight Start Date: 02/10/21 Status: OrderedFLUoxetine 20 mg oral capsule 60 mg, 3, capsule, By Mouth, Daily, # 270 capsule, Refills 3, Tot. Refills 3, Maintenance, 07/20/19 8:49:52 EST, Route to Pharmacy Electronically, [facility]/pharmacy #[id number], 165.1, cm, 07/20/19 8:25:18 [...] tablet, By Mouth, Daily, # 90 tablet, 0 Refills, 11/07/21 10:38:00 EDT, [facility]/pharmacy #[id number], 90, 1 tablet By Mouth Daily, 165.1, cm, 11/06/21 15:50:00 EDT, Height, 125.8, kg, 06/27/20 9:45:00 EST, DryWeight Start Date: 11/07/21 Status: OrderedKlonoPIN 0.5 mg oral tablet 1 tablet = 0.5 mg, By Mouth, 2 times a day, # 60 tablet, 0 Refills, Maintenance, 03/05/22 15:01:00 EDT, Tablet, [facility]/pharmacy #[id number], 165.1, cm, 03/05/22 14:21:00 EDT, Height, 125.8, kg, 06/27/20 9:45:00EST, Dry Weight Start Date: 03/05/22 Status: OrderedMirena 52 mg intrauteral device 1 [...] term(Confirmed) Active Rhinitis(Confirmed) Active Septate uterus(Confirmed) Active Severe obesity(Confirmed) Active 2008 no polyps or [id number] Andrzej Diagnosis Diagnosis Type Effective Dates Health Status Clinical In formant Service Shoulder pain, Discharge 04/06/22 right Diagnosis Numbness of hand Discharge 04/06/22 Diagnosis Vital Signs Most recent to oldest [Reference Range]: 1 Height 165.10 cm (04/06/22 1:14 PM) Weight 125.7 kg (04/06/22 1:14 PM) Oxygen Saturation [94-100 %] 98 % (04/06/22 1:14 PM) Pulse Rate [55-90 bpm] 84 bpm (04/06/22 1:14 PM) Body Mass Index [18.5-24.99] 46.11 *>HHI* (04/06/22 1:14 PM) Blood Pressure [90-138/55-84 mm Hg] 125/57 mm Hg (04/06/22 1:14 PM) Temperature [96.8-100.4 DegF] 99.4 DegF (04/06/22 1:14 PM) Blood pressure sites Arm, left (04/06/22 1:14 PM) Temperature Route Temporal (04/06/22 1:14 PM) Weight Obtained Via Standing scale (04/06/22 1:14 PM) Social History Social History Type Response Smoking Status Never smoker entered on: 10/27/13 Sex Care Team PersonnelName: Sue MARTINEZ, Alejandro Amaya Address: [address] [place] [id number]-
--- OUTSIDE RECORDS SUMMARY | 2022-05-06 01:04 | XMS_ITS | Continuity of Care Document ---
:1975 Author Organization [facility] Address [address] [place] [address], [address] [place] [address]- Care Team Providers Name Role Phone Alejandro Rogers MD Primary Care Physician Encounter [facility] [place] Date(s): 09/26/20 - 10/03/20 [facility] [address], [address] [place] [address]- Attending Physician: Kacie Huff MD Referring Physician: [...] Toxoid Vaccine (oldterm) 10/03/06 Given 1Admin Note: [facility] SystemGgqkjv5Jcgnu Note: [id number] Note: SANOFI PASTEUR Medications ASA/butalbital/caffeine 325 mg-50 mg-40 mg oral tablet 1 tablet, By Mouth, Every 4 hours, PRN for pain, 1 tablet every 4 hours PRN for headaches fax # [phone], # 30 tablet, 5 Refills, Maintenance, 12/16/17 11:20:08 EDT, Tablet Start Date: 12/16/17 Status: OrderedCPAP Burlapper, 05/19/18 8:04:57 EDT, Compound Start Date: 05/19/18 Status: Orderedcyclobenzaprine 10 mg oral tablet 10 mg, By Mouth, Every 8 hours, PRN, Muscle Spasms, # 21 tablet, Refills 0, Tot. Refills 0, Maintenance, Pain , Moderate, 09/16/20 14:52:00 EST, Route to Pharmacy Electronically, [facility]/pharmacy #[id number], Partial fill upon patient request if the prescriptio... Start Date: 09/16/20 Status: OrderedFlonase 50 mcg/inh nasal spray 1 sprays, Nares, Both, 2 times a day, in each nostril, # 48 mL, 1 Refills, Maintenance, 01/28/20 10:50:00 EDT, [place], [facility]/pharmacy #[id number], 1 sprays Nares, Both 2 times a day,Instr:in each nostril, 165.1, cm, 01/26/20 10:01:00 EDT, Height, 123, kg, 09/05... Start Date: 01/28/20 Status: OrderedFlovent HFA 110 mcg/inh inhalation aerosol 2 puffs, Inhalation, 2 times a day, rinse mouth and throat after use, # 12 Gm, 1 Refills, Maintenance, 08/14/19 12:08:00 EST, Aerosol, [facility]/pharmacy #[id number], 165.1, cm, 08/04/19 8:55:00 EST, Height Start Date: 08/14/19 Status: OrderedFLUoxetine 20 mg oral capsule 60 mg, 3, capsule, By Mouth, Daily, # 270 capsule, Refills 3, Tot. Refills 3, Maintenance, 07/20/19 8:49:52 EST, Route to Pharmacy Electronically, [facility]/pharmacy #[id number], 165.1, cm, 07/20/19 8:25:18 EST, Height [...] Refills, Maintenance, 07/11/20 10:01:00 EST, Tablet, [facility]/pharmacy #[id number], 165.1, cm, 06/27/20 9:45:00 EST, Height, [...] Septate uterus(Confirmed) Active 2008 no polyps or [id number] [facility] Social History Social History Type Response Smoking Status Never smoker entered on: 10/27/13 Sex
--- OUTSIDE RECORDS SUMMARY | 2022-05-06 01:04 | XMS_ITS | Continuity of Care Document ---
:1975 Author Organization [facility] Address [address] [place] [address]- Care Team Providers Name Role Phone Sue MARTINEZ, Alejandro Amaya Primary Care Physician Encounter [facility] Date(s): 07/11/20 - 08/10/20 [facility] [address] [place] [address]- Allergies, Adverse Reactions, Alerts Substance Reaction Severity [...] Toxoid Vaccine (oldterm) 10/03/06 Given 1Admin Note: [facility]irv Note: [id number] Note: SANOFI PASTEUR Medications ASA/butalbital/caffeine 325 mg-50 mg-40 mg oral tablet 1 tablet, By Mouth, Every 4 hours, PRN for pain, 1 tablet every 4 hours PRN for headaches fax # [phone], # 30 tablet, 5 Refills, Maintenance, 12/16/17 11:20:08 EDT, Tablet Start Date: 12/16/17 Status: OrderedCPAP Spudder, 05/19/18 8:04:57 EDT, Compound Start Date: 05/19/18 Status: OrderedFlonase 50 mcg/inh nasal spray 1 sprays, Nares, Both, 2 times a day, in each nostril, # 48 mL, 1 Refills, Maintenance, 01/28/20 10:50:00 EDT, [place], [facility]/pharmacy #[id number], 1 sprays Nares, Both 2 times a day,Instr:in each nostril, 165.1, cm, 01/26/20 10:01:00 EDT, Height, 123, kg, 09/05... Start Date: 01/28/20 Status: OrderedFlovent HFA 110 mcg/inh inhalation aerosol 2 puffs, Inhalation, 2 times a day, rinse mouth and throat after use, # 12 Gm, 1 Refills, Maintenance, 08/14/19 12:08:00 EST, Aerosol, [facility]/pharmacy #[id number], 165.1, cm, 08/04/19 8:55:00 EST, Height Start Date: 08/14/19 Status: OrderedFLUoxetine 20 mg oral capsule 60 mg, 3, capsule, By Mouth, Daily, # 270 capsule, Refills 3, Tot. Refills 3, Maintenance, 07/20/19 8:49:52 EST, Route to Pharmacy Electronically, [facility]/pharmacy #[id number], 165.1, cm, 07/20/19 8:25:18 EST, Height Start Date: 07/20/19 Status: OrderedKlonoPIN 0.5 mg oral tablet 1 tablet = 0.5 mg, By Mouth, 2 times a day, # 60 tablet, 0 Refills, Maintenance, 07/11/20 10:01:00 EST, Tablet, [facility]/pharmacy #[id number], 165.1, cm, 06/27/20 9:45:00 EST, [...] Septate uterus(Confirmed) Active 1c2008 no polyps or [id number] [facility] Social History Social History Type Response Smoking Status Never smoker entered on: 10/27/13 Sex
--- OUTSIDE RECORDS SUMMARY | 2022-05-06 01:04 | XMS_ITS | Continuity of Care Document ---
:1975 Author Organization [facility] Address [address] [place] [address]- Care Team Providers Name Role Phone Alejandro Rogers MD Primary Care Physician Encounter [facility] Date(s): 08/04/19 - 08/04/[address] [address]- [facility] Attending Physician: Lisbet PARK, Maude Barkley Allergies, Adverse [...] Toxoid Vaccine (oldterm) 10/03/06 Given 1Admin Note: [employer] [facility]Wcnvqf3Nscmn Note: [id number] Note: SANOFI PASTEUR Medications ASA/butalbital/caffeine 325 mg-50 mg-40 mg oral tablet 1 tablet, By Mouth, Every 4 hours, PRN for pain, 1 tablet every 4 hours PRN for headaches fax # [phone], # 30 tablet, 5 Refills, Maintenance, 12/16/17 11:20:08 EDT, Tablet Start Date: 12/16/17 Status: OrderedAugmentin 875 mg-125 mg oral tablet 1 tablet, By Mouth, Every 12 hours, for 10 days, # 20 tablet, 0 Refills, Acute 08/14/19 9:20:00 EST,08/04/19 9:20:00 EST, Tablet, [facility]/pharmacy #[id number], 165.1, cm, 08/04/19 8:55:00 EST, Height Start Date: 08/04/19 Stop Date: 08/14/19 Status: OrderedCPAP Clinical Haematologist, 05/19/18 8:04:57 EDT, Compound Start Date: 05/19/18 Status: OrderedDiflucan 150 mg oral tablet 1 tablet = 150 mg, By Mouth, Once, # 1 tablet, 0 Refills, Soft Stop, 08/04/19 9:21:00 EST, Tablet, [facility]/pharmacy #[id number], 165.1, cm, 08/04/19 8:55:00 EST, Height Start Date: 08/04/19 Status: OrderedFlonase 50 mcg/inh nasal spray 1 sprays, Nares, Both, 2 times a day, in each nostril, # 16 Gm, 6 Refills, Maintenance, 08/04/19 14:13:00 EST, [place], [facility]/pharmacy #[id number], 1 sprays Nares, Both 2 times a day,Instr:in each nostril, 165.1, cm, 08/04/19 8:55:00 EST, Height Start Date: 08/04/19 Status: OrderedFlovent HFA 110 mcg/inh inhalation aerosol 2 puffs, Inhalation, 2 times a day, rinse mouth and throat after use, # 12 Gm, 1 Refills, Maintenance, 07/20/19 8:51:31 EST, Aerosol, [facility]/pharmacy #[id number], 165.1, cm, 07/20/19 8:25:18 EST, Height Start Date: 07/20/19 Status: OrderedFLUoxetine 20 mg oral capsule 60 mg, 3, capsule, By Mouth, Daily, # 270 capsule, Refills 3, Tot. Refills 3, Maintenance, 07/20/19 8:49:52 EST, Route to Pharmacy Electronically, [facility]/pharmacy #[id number], 165.1, cm, 07/20/19 8:25:18 EST, Height [...] tablet, 0 Refills, Maintenance, 08/04/19 9:20:00 EST, [facility]/pharmacy #[id number], 165.1, cm, 08/04/19 8:55:00 [...]
--- OUTSIDE RECORDS SUMMARY | 2022-05-06 01:04 | XMS_ITS | Continuity of Care Document ---
:1975 Author Organization [facility] Address [address] [place] [address]- Care Team Providers Name Role Phone Sue MARTINEZ, Alejandro Amaya Primary Care Physician Encounter [facility] Date(s): 02/16/21 - 03/18/21 [facility] [address], [place] [address] [[email or web address] Allergies, Adverse Reactions, Alerts Substance Reaction Severity [...] (oldterm)3 06/04/08 Given Tetanus Toxoid Vaccine (oldterm) 3/1/07 Given 1Admin Note: [id number] Note: [id number] Note: SANOFI PASTEUR Medications ASA/butalbital/caffeine 325 mg-50 mg-40 mg oral tablet 1 tablet, By Mouth, Every 4 hours, PRN for pain, 1 tablet every 4 hours PRN for headaches fax # [phone], # 30 tablet, 5 Refills, Maintenance, 12/16/17 11:20:08 EDT, Tablet Start Date: 12/16/17 Status: OrderedCPAP Child Care Coordinator, 05/19/18 8:04:57 EDT, Compound Start Date: 05/19/18 Status: OrderedFlonase 50 mcg/inh nasal spray 1 sprays, Nares, Both, 2 times a day, in each nostril, # 48 mL, 1 Refills, Maintenance, 01/28/20 10:50:00 EDT, [place], [facility]/pharmacy #[id number], 1 sprays Nares, Both 2 times a day,Instr:in each nostril, 165.1, cm, 01/26/20 10:01:00 EDT, Height, 123, kg, 09/05... Start Date: 01/28/20 Status: OrderedFlovent HFA 110 mcg/inh inhalation aerosol 2 puffs, Inhalation, 2 times a day, rinse mouth and throat after use, # 12 Gm, 1 Refills, Maintenance, 02/10/21 8:24:00 EDT, [place], [facility]/pharmacy #0693, 165.1, cm, 02/10/21 8:00:00 EDT, Height, 125.8,kg, 06/27/20 9:45:00 EST, Dry Weight Start Date: 02/10/21 Status: OrderedFLUoxetine 20 mg oral capsule 60 mg, 3, capsule, By Mouth, Daily, # 270 capsule, Refills 3, Tot. Refills 3, Maintenance, 07/20/19 8:49:52 EST, Route to Pharmacy Electronically, [facility]/pharmacy #[id number], 165.1, cm, 07/20/19 8:25:18 EST, [...] Refills, Maintenance, 07/11/20 10:01:00 EST, Tablet, [facility]/pharmacy #0693, 165.1, cm, 06/27/20 9:45:00 EST, Height, 125.8, kg, 06/27/20 9:45:00 EST, Dry Weight Start Date: 07/11/20 Status: OrderedMirena 52 mg intrauteral device 1 each = 52 mg, Once, 0 Refills, Maintenance, 07/25/16 15:52:04 Start Date: 07/25/16 Status: OrderedMyrbetriq 25 mg oral tablet, extended release 1 tablet = 25 mg, By Mouth, Daily, # 30 tablet, 5 Refills, Maintenance, 09/26/20 10:20:00 EST, [facility]/pharmacy #[id number], Partial fill upon patient request if the prescription is for a schedule II opioid drug., 165.1, cm, 09/16/20 14:04:00 EST, Height, 125.8... Start Date: 09/26/20 Status: OrderedTylenol 325 mg oral capsule 2 capsule = 650 mg, By Mouth, Every 4 hours, PRN as needed for pain, # 90 capsule, 0 Refills, Maintenance, 03/23/20 8:44:00 EDT, Capsule, [facility]/pharmacy #[id number], 165.1, cm, 03/23/20 7:03:00 EDT, Height, [...] Septate uterus(Confirmed) Active 1c2008 no polyps or [id number] [employer] Social History Social History Type Response Smoking Status Never smoker entered on: 10/27/13 Sex
--- OUTSIDE RECORDS SUMMARY | 2022-05-06 01:04 | XMS_ITS | Continuity of Care Document ---
:1975 [facility] Address [address] [place] [address]- Care Team Providers Name Role Phone Alejandro Rogers MD Primary Care Physician Encounter [facility] Date(s): 04/05/20 - 04/12/20 [facility] [address] [place] [address], [address] [place] [address]- [facility] Attending Physician: Kacie Huff MD Referring [...] Toxoid Vaccine (oldterm) 10/03/06 Given 1Admin Note: YYzha[facility] CenterThoohc0Xvllw Note: [id number] Note: SANOFI PASTEUR Medications ASA/butalbital/caffeine 325 mg-50 mg-40 mg oral tablet 1 tablet, By Mouth, Every 4 hours, PRN for pain, 1 tablet every 4 hours PRN for headaches fax # [phone], # 30 tablet, 5 Refills, Maintenance, 12/16/17 11:20:08 EDT, Tablet Start Date: 12/16/17 Status: OrderedCPAP Aluminum Boat Assembly Supervisor, 05/19/18 8:04:57 EDT, Compound Start Date: 05/19/18 Status: OrderedFlonase 50 mcg/inh nasal spray 1 sprays, Nares, Both, 2 times a day, in each nostril, # 48 mL, 1 Refills, Maintenance, 01/28/20 10:50:00 EDT, [place], [facility]/pharmacy #[id number], 1 sprays Nares, Both 2 times a day,Instr:in each nostril, 165.1, cm, 01/26/20 10:01:00 EDT, Height, 123, kg, 09/05... Start Date: 01/28/20 Status: OrderedFlovent HFA 110 mcg/inh inhalation aerosol 2 puffs, Inhalation, 2 times a day, rinse mouth and throat after use, # 12 Gm, 1 Refills, Maintenance, 08/14/19 12:08:00 EST, Aerosol, [facility]/pharmacy #[id number], 165.1, cm, 08/04/19 8:55:00 EST, Height Start Date: 08/14/19 Status: OrderedFLUoxetine 20 mg oral capsule 60 mg, 3, capsule, By Mouth, Daily, # 270 capsule, Refills 3, Tot. Refills 3, Maintenance, 07/20/19 8:49:52 EST, Route to Pharmacy Electronically, [facility]/pharmacy #[id number], 165.1, cm, 07/20/19 8:25:18 EST, Height Start Date: 07/20/19 Status: Orderedibuprofen 600 mg oral tablet 600 mg, 1, tablet, By Mouth, Every 6 hours, PRN, # 40 tablet, Refills 0, Tot. Refills 0, Maintenance, for pain, 03/23/20 8:44:00 EDT, Route to Pharmacy Electronically, [facility]/pharmacy #[id number], 165.1, cm, 03/23/20 7:03:00 EDT, Height, 125.8, kg, 03/23/20 7:... Start Date: 03/23/20 Status: Orderedibuprofen 800 mg oral tablet 800 mg, 1, tablet, By Mouth, 3 times a day, PRN, with food or milk, # 42 tablet, Refills 0, Tot. Refills 0, Maintenance, for pain, 01/08/20 15:50:00 EDT, Route to Pharmacy Electronically, [facility]/pharmacy #[id number], 165.1, cm, 01/08/20 15:06:00 EDT, Height, [...] 0 Refills, Maintenance, 03/23/20 8:44:00 EDT, Capsule, [facility]/pharmacy #[id number], 165.1, cm, 03/23/20 7:03:00 [...] Maintenance, 07/20/19 8:49:52 EST, Tablet, [facility]/pharmacy #[id number], 1 tablet By Mouth Daily, 165.1, cm, 07/20/19 8:25:18 EST, Height Start Date: 07/20/19 Status: Ordered Problem List Condition Effective Dates Status Health Status Informant Acute mesenteric adenitis(Confirmed) Active Anxiety(Confirmed) Active Asthma(Confirmed) Active Asthmatic bronchitis(Confirmed) 2/18/10 Active BMI 40.0-44.9, adult(Confirmed) Active Colonoscopy(Confirmed)1 Active [...] Active 1colo 2008 no polyps or cancer Vital Signs Most recent to oldest [Reference Range]: 1 Height 165.10 cm (04/05/20 3:47 PM) Weight 125.8 kg (04/05/20 3:47 PM) Body Mass Index [18.5-24.99] 46.15 *>HHI* (04/05/20 3:47 PM) Blood Pressure [90-138/55-84 mm Hg] 132/72 mm Hg (04/05/20 3:47 PM) Blood pressure sites Arm, right (04/05/20 3:47 PM) Dry Weight 125.8 kg (04/05/20 3:47 PM) Weight Obtained Via Standing scale (04/05/20 3:47 PM) Dry Weight Obtained Via Standing scale (04/05/20 3:47 PM) Social History Social History Type Response Smoking Status Never smoker entered on: 10/27/13 Sex
--- OUTSIDE RECORDS SUMMARY | 2022-05-06 01:05 | XMS_ITS | Continuity of Care Document ---
:1975 Author Organization [facility] [place] Address [address] [place] [address]- Care Team Providers Name Role Phone Seu MARTINEZ, Alejandro Amaya Primary Care Physician Encounter [facility] Date(s): 09/01/20 - 10/01/20 [facility] [place] [address] [place] [address]- Allergies, Adverse Reactions, Alerts Substance Reaction Severity [...] Toxoid Vaccine (oldterm) 10/03/06 Given 1Admin Note: iconDial of [id number] Note: [id number] Note: SANOFI PASTEUR Medications ASA/butalbital/caffeine 325 mg-50 mg-40 mg oral tablet 1 tablet, By Mouth, Every 4 hours, PRN for pain, 1 tablet every 4 hours PRN for headaches fax # [phone], # 30 tablet, 5 Refills, Maintenance, 12/16/17 11:20:08 EDT, Tablet Start Date: 12/16/17 Status: OrderedCPAP Photoengraver Apprentice, 05/19/18 8:04:57 EDT, Compound Start Date: 05/19/18 Status: Orderedcyclobenzaprine 10 mg oral tablet 10 mg, By Mouth, Every 8 hours, PRN, Muscle Spasms, # 21 tablet, Refills 0, Tot. Refills 0, Maintenance, Pain , Moderate, 09/16/20 14:52:00 EST, Route to Pharmacy Electronically, [facility]/pharmacy #[id number], Partial fill upon patient request if the prescriptio... Start Date: 09/16/20 Status: OrderedFlonase 50 mcg/inh nasal spray 1 sprays, Nares, Both, 2 times a day, in each nostril, # 48 mL, 1 Refills, Maintenance, 01/28/20 10:50:00 EDT, [place], [facility]/pharmacy #[id number], 1 sprays Nares, Both 2 times a day,Instr:in each nostril, 165.1, cm, 01/26/20 10:01:00 EDT, Height, 123, kg, 09/05... Start Date: 01/28/20 Status: OrderedFlovent HFA 110 mcg/inh inhalation aerosol 2 puffs, Inhalation, 2 times a day, rinse mouth and throat after use, # 12 Gm, 1 Refills, Maintenance, 08/14/19 12:08:00 EST, Aerosol, [facility]/pharmacy #[id number], 165.1, cm, 08/04/19 8:55:00 EST, Height Start Date: 08/14/19 Status: OrderedFLUoxetine 20 mg oral capsule 60 mg, 3, capsule, By Mouth, Daily, # 270 capsule, Refills 3, Tot. Refills 3, Maintenance, 07/20/19 8:49:52 EST, Route to Pharmacy Electronically, [facility]/pharmacy #[id number], 165.1, cm, 07/20/19 8:25:18 EST, [...] Refills, Maintenance, 07/11/20 10:01:00 EST, Tablet, [facility]/pharmacy #[id number], 165.1, cm, 06/27/20 9:45:00 EST, [...] 5 Refills, Maintenance, 09/26/20 10:20:00 EST, [facility]/pharmacy #[id number], Partial fill upon patient request [...] Septate uterus(Confirmed) Active 2008 no polyps or [id number] Andrzej Social History Social History Type Response Smoking Status Never smoker entered on: 10/27/13 Sex
--- OUTSIDE RECORDS SUMMARY | 2022-05-06 01:05 | XMS_ITS | Continuity of Care Document ---
:1975 Author Organization [facility] Address [address] [place] [address]- Care Team Providers Name Role Phone Sue MARTINEZ, Alejandro Amaya Primary Care Physician Encounter [facility] Date(s): 03/05/22 - 03/12/22 [facility] [address] [place] [address]- Encounter Diagnosis Anxiety (Discharge Diagnosis) - 03/05/22 Attending Physician: Maude Frausto NP Allergies, Adverse Reactions, Alerts Substance Reaction [...] Given FluLaval (oldterm)1 03/25/12 Given Fluzone (oldterm) 12/29/09 Given influ virus vac, H1N1, inactive(oldterm)2 08/02/09 Given Pneumococcal Vaccine (oldterm) 06/04/08 Given Influenza Inactive (IM) (oldterm)3 06/04/08 Given Tetanus Toxoid Vaccine (oldterm) 10/03/06 Given 1Admin Note: SplitSecnd [facility] HospitalYzuhxu6Isodf Note: [id number] Note: SANOFI PASTEUR Medications amLODIPine 5 mg oral tablet 5 mg, 1, tablet, By Mouth, Daily, # 90 tablet, Refills 1, Tot. Refills 1, Maintenance, 12/07/21 15:39:00 EDT, Route to Pharmacy Electronically, [facility]/pharmacy #[id number], Partial fill upon patient request if the prescription is for a schedule II opioid drug.... Start Date: 12/07/21 Status: OrderedASA/butalbital/caffeine 325 mg-50 mg-40 mg oral tablet 1 tablet, By Mouth, Every 4 hours, PRN for pain, 1 tablet every 4 hours PRN for headaches fax # [phone], # 30 tablet, 5 Refills, Maintenance, 12/16/17 11:20:08 EDT, Tablet Start Date: 12/16/17 Status: OrderedCPAP Manager Market Research, 05/19/18 8:04:57 EDT, Compound Start Date: 05/19/18 Status: OrderedEpiPen 2-Maxi 0.3 mg injectable kit = 0.3 mg, Intramuscular, Once, # 1 each, 0 Refills, Soft Stop, 09/12/21 10:04:00 EST, [facility]/pharmacy #[id number], Partial fill upon patient request if the prescription is for a schedule II opioid drug., 165.1,cm, 03/21/21 7:14:00 EDT, Height, 125.8, kg, 06/06... Start Date: 09/12/21 Status: OrderedFlonase 50 mcg/inh nasal spray 1 sprays, Nares, Both, 2 times a day, in each nostril, # 48 mL, 1 Refills, Maintenance, 01/28/20 10:50:00 EDT, [place], [facility]/pharmacy #[id number], 1 sprays Nares, Both 2 times a day,Instr:in each nostril, 165.1, cm, 01/26/20 10:01:00 EDT, Height, 123, kg, 09/05... Start Date: 01/28/20 Status: OrderedFlovent HFA 110 mcg/inh inhalation aerosol 2 puffs, Inhalation, 2 times a day, rinse mouth and throat after use, # 12 Gm, 1 Refills, Maintenance, 02/10/21 8:24:00 EDT, Aerosol, [facility]/pharmacy #[id number], 165.1, cm, 02/10/21 8:00:00 EDT, Height, 125.8,kg, 06/27/20 9:45:00 EST, Dry Weight Start Date: 02/10/21 Status: OrderedFLUoxetine 20 mg oral capsule 60 mg, 3, capsule, By Mouth, Daily, # 270 capsule, Refills 3, Tot. Refills 3, Maintenance, 07/20/19 8:49:52 EST, Route to Pharmacy Electronically, [facility]/pharmacy #[id number], 165.1, cm, 07/20/19 8:25:18 [...] 90 tablet, 0 Refills, 11/07/21 10:38:00 EDT, [facility]/pharmacy #[id number], 90, 1 tablet By Mouth Daily, 165.1, cm, 11/06/21 15:50:00 EDT, Height, 125.8, kg, 06/27/20 9:45:00 EST, DryWeight Start Date: 11/07/21 Status: OrderedKlonoPIN 0.5 mg oral tablet 1 tablet = 0.5 mg, By Mouth, 2 times a day, # 60 tablet, 0 Refills, Maintenance, 03/05/22 15:01:00 EDT, Tablet, [facility]/pharmacy #[id number], 165.1, cm, 03/05/22 14:21:00 EDT, Height, [...] Active Septate uterus(Confirmed) Active Severe obesity(Confirmed) Active 1c2008 no polyps or [id number] Andrzej Diagnosis Diagnosis Type Effective Dates Health Status Clinical Serv ice Informant Anxiety Discharge 03/05/22 Diagnosis Vital Signs Most recent to oldest [Reference Range]: 1 Height 165.10 cm (03/05/22 2:21 PM) Weight 126.0 kg (03/05/22 2:21 PM) Oxygen Saturation [94-100 %] 98 % (03/05/22 2:21 PM) Pulse Rate [55-90 bpm] 88 bpm (03/05/22 2:21 PM) Body Mass Index [18.5-24.99] 46.22 *>HHI* (03/05/22 2:21 PM) Blood Pressure [90-138/55-84 mm Hg] 114/72 mm Hg (03/05/22 2:21 PM) Respiratory Rate [16-30 br/min] 20 br/min (03/05/22 2:21 PM) Mode of Delivery (Oxygen) Room air (03/05/22 2:21 PM) Blood pressure sites Arm, right (03/05/22 2:21 PM) Weight Obtained Via Standing scale (03/05/22 2:21 PM) Social History Social History Type Response Smoking Status Never smoker entered on: 10/27/13 Sex
--- OUTSIDE RECORDS SUMMARY | 2022-05-06 01:05 | XMS_ITS | Continuity of Care Document ---
:1975 Author Organization [facility] Address [address] [place] [address]- Care Team Providers Name Role Phone Sue MARTINEZ, Alejandro Amaya Primary Care Physician [place] [facility] [place] 03[place]30[place]22 [facility] [address] [place] [address]- Allergies, Adverse Reactions, Alerts Substance Reaction Severity [...] Toxoid Vaccine (oldterm) 10/03/06 Given 1Admin Note: Lecere [facility]2Admin Note: [id number] Note: SANOFI PASTEUR Medications amLODIPine 5 mg oral tablet 5 mg, 1, tablet, By Mouth, Daily, # 90 tablet, Refills 1, Tot. Refills 1, Maintenance, 12/07/21 15:39:00 EDT, Route to Pharmacy Electronically, [facility]/pharmacy #[id number], Partial fill upon patient request if the prescription is for a schedule II opioid drug.... Start Date: 12/07/21 Status: OrderedASA/butalbital/caffeine 325 mg-50 mg-40 mg oral tablet 1 tablet, By Mouth, Every 4 hours, PRN for pain, 1 tablet every 4 hours PRN for headaches fax # [phone], # 30 tablet, 5 Refills, Maintenance, 12/16/17 11:20:08 EDT, Tablet Start Date: 12/16/17 Status: OrderedCPAP Riverboat Master, 05/19/18 8:04:57 EDT, Compound Start Date: 05/19/18 Status: OrderedEpiPen 2-Maxi 0.3 mg injectable kit = 0.3 mg, Intramuscular, Once, # 1 each, 0 Refills, Soft Stop, 09/12/21 10:04:00 EST, [facility]/pharmacy #[id number], Partial fill upon patient request if the prescription is for a schedule II opioid drug., 165.1,cm, 03/21/21 7:14:00 EDT, Height, 125.8, kg, 06/06... Start Date: 09/12/21 Status: OrderedFlonase 50 mcg/inh nasal spray 1 sprays, Nares, Both, 2 times a day, in each nostril, # 48 mL, 1 Refills, Maintenance, 01/28/20 10:50:00 EDT, [place], [facility]/pharmacy #[id number], 1 sprays Nares, Both 2 times a day,Instr:in each nostril, 165.1, cm, 01/26/20 10:01:00 EDT, Height, 123, kg, 09/05... Start Date: 01/28/20 Status: OrderedFlovent HFA 110 mcg/inh inhalation aerosol 2 puffs, Inhalation, 2 times a day, rinse mouth and throat after use, # 12 Gm, 1 Refills, Maintenance, 02/10/21 8:24:00 EDT, Aerosol, [facility]/pharmacy #[id number], 165.1, cm, 02/10/21 8:00:00 EDT, [...] 90 tablet, 0 Refills, 11/07/21 10:38:00 EDT, [facility]/pharmacy #[id number], 90, 1 tablet By Mouth Daily, 165.1, cm, 11/06/21 15:50:00 EDT, Height, 125.8, kg, 06/27/20 9:45:00 EST, DryWeight Start Date: 11/07/21 Status: OrderedKlonoPIN 0.5 mg oral tablet 1 tablet = 0.5 mg, By Mouth, 2 times a day, # 60 tablet, 0 Refills, Maintenance, 03/05/22 15:01:00 EDT, Tablet, [facility]/pharmacy #[id number], 165.1, cm, 03/05/22 14:21:00 EDT, [...] Severe obesity(Confirmed) Active 1c2008 no polyps or [id number] Andrzej Social History Social History Type Response Smoking Status Never smoker entered on: 10/27/13 Sex Care Team PersonnelName: Sue MARTINEZ, Alejandro Amaya Address: [address] [place] [address]
--- OUTSIDE RECORDS SUMMARY | 2022-05-06 01:05 | XMS_ITS | Continuity of Care Document ---
:1975 Author Organization [facility] Address [address] [place] [address]- Care Team Providers Name Role Phone Sue MARTIENZ, Alejandro Amaya Primary Care Physician Encounter [facility] Date(s): 11/24/20 - 12/01/20 [facility] [address] [place] [address]- Attending Physician: Hung Nicole MD Referring Physician: Alejandro Rogers MD Allergies, [...] Toxoid Vaccine (oldterm) 10/03/06 Given 1Admin Note: CloudArena [facility] HealthZiybcr9Yhnyi Note: [id number] Note: SANOFI PASTEUR Medications ASA/butalbital/caffeine 325 mg-50 mg-40 mg oral tablet 1 tablet, By Mouth, Every 4 hours, PRN for pain, 1 tablet every 4 hours PRN for headaches fax # [phone], # 30 tablet, 5 Refills, Maintenance, 12/16/17 11:20:08 EDT, Tablet Start Date: 12/16/17 Status: OrderedCPAP Scutcher Tender, 05/19/18 8:04:57 EDT, Compound Start Date: 05/19/18 Status: Orderedcyclobenzaprine 10 mg oral tablet 10 mg, By Mouth, Every 8 hours, PRN, Muscle Spasms, # 21 tablet, Refills 0, Tot. Refills 0, Maintenance, Pain , Moderate, 09/16/20 14:52:00 EST, Route to Pharmacy Electronically, [facility]/pharmacy #[id number], Partial fill upon patient request if the prescriptio... Start Date: 09/16/20 Status: OrderedFlonase 50 mcg/inh nasal spray 1 sprays, Nares, Both, 2 times a day, in each nostril, # 48 mL, 1 Refills, Maintenance, 01/28/20 10:50:00 EDT, [place], [facility]/pharmacy #[id number], 1 sprays Nares, Both 2 times a day,Instr:in each nostril, 165.1, cm, 01/26/20 10:01:00 EDT, Height, 123, kg, 09/05... Start Date: 01/28/20 Status: OrderedFlovent HFA 110 mcg/inh inhalation aerosol 2 puffs, Inhalation, 2 times a day, rinse mouth and throat after use, # 12 Gm, 1 Refills, Maintenance, 08/14/19 12:08:00 EST, Aerosol, [facility]/pharmacy #[id number], 165.1, cm, 08/04/19 8:55:00 EST, Height Start Date: 08/14/19 Status: OrderedFLUoxetine 20 mg oral capsule 60 mg, 3, capsule, By Mouth, Daily, # 270 capsule, Refills 3, Tot. Refills 3, Maintenance, 07/20/19 8:49:52 EST, Route to Pharmacy Electronically, [facility]/pharmacy #[id number], 165.1, cm, 07/20/19 8:25:18 EST, [...] 0 Refills, Maintenance, 07/11/20 10:01:00 EST, Tablet, [facility]/pharmacy #[id number], 165.1, cm, 06/27/20 9:45:00 EST, Height, 125.8, kg, 06/27/20 9:45:00 EST, Dry Weight Start Date: 07/11/20 Status: OrderedMirena 52 mg intrauteral device 1 each = 52 mg, Once, 0 Refills, Maintenance, 07/25/16 15:52:04 Start Date: 07/25/16 Status: OrderedMyrbetriq 25 mg oral tablet, extended release 1 tablet = 25 mg, By Mouth, Daily, # 30 tablet, 5 Refills, Maintenance, 09/26/20 10:20:00 EST, [facility]/pharmacy #[id number], Partial fill upon patient request [...] 1 Refills, Maintenance, 07/11/20 10:00:00 EST, Tablet, [facility]/pharmacy #[id number], 1 tablet By Mouth Daily, [...] Septate uterus(Confirmed) Active 1c2008 no polyps or [id number] Kelly-Juju Vital Signs Most recent to oldest [Reference Range]: 1 Height 165.10 cm (11/24/20 8:20 AM) Social History Social History Type Response Smoking Status Never smoker entered on: 10/27/13 Sex
--- OUTSIDE RECORDS SUMMARY | 2022-05-06 01:05 | XMS_ITS | Continuity of Care Document ---
:1975 Author Organization [facility] Address [address] [place] [address]- Care Team Providers Name Role Phone Alejandro Rogers MD Primary Care Physician [facility] Date(s): 03/22/20 - 04/21/20 [facility] [address] [place] [address]- [facility] Allergies, Adverse Reactions, Alerts Substance [...] Toxoid Vaccine (oldterm) 10/03/06 Given 1Admin Note: [place] [facility] HospitalCntlzz3Hsjuu Note: [id number] Note: SANOFI PASTEUR Medications ASA/butalbital/caffeine 325 mg-50 mg-40 mg oral tablet 1 tablet, By Mouth, Every 4 hours, PRN for pain, 1 tablet every 4 hours PRN for headaches fax # [phone], # 30 tablet, 5 Refills, Maintenance, 12/16/17 11:20:08 EDT, Tablet Start Date: 12/16/17 Status: OrderedCPAP Stone Grader, 05/19/18 8:04:57 EDT, Compound Start Date: 05/19/18 Status: OrderedFlonase 50 mcg/inh nasal spray 1 sprays, Nares, Both, 2 times a day, in each nostril, # 48 mL, 1 Refills, Maintenance, 01/28/20 10:50:00 EDT, [place], [facility]/pharmacy #[id number], 1 sprays Nares, Both 2 times a day,Instr:in each nostril, 165.1, cm, 01/26/20 10:01:00 EDT, Height, 123, kg, 09/05... Start Date: 01/28/20 Status: OrderedFlovent HFA 110 mcg/inh inhalation aerosol 2 puffs, Inhalation, 2 times a day, rinse mouth and throat after use, # 12 Gm, 1 Refills, Maintenance, 08/14/19 12:08:00 EST, Aerosol, [facility]/pharmacy #[id number], 165.1, cm, 08/04/19 8:55:00 EST, Height Start Date: 08/14/19 Status: OrderedFLUoxetine 20 mg oral capsule 60 mg, 3, capsule, By Mouth, Daily, # 270 capsule, Refills 3, Tot. Refills 3, Maintenance, 07/20/19 8:49:52 EST, Route to Pharmacy Electronically, [facility]/pharmacy #[id number], 165.1, cm, 07/20/19 8:25:18 EST, Height Start Date: 07/20/19 Status: Orderedibuprofen 600 mg oral tablet 600 mg, 1, tablet, By Mouth, Every 6 hours, PRN, # 40 tablet, Refills 0, Tot. Refills 0, Maintenance, for pain, 03/23/20 8:44:00 EDT, Route to Pharmacy Electronically, [facility]/pharmacy #[id number], 165.1, cm, 03/23/20 7:03:00 EDT, Height, 125.8, kg, 03/23/20 7:... Start Date: 03/23/20 Status: Orderedibuprofen 800 mg oral tablet 800 mg, 1, tablet, By Mouth, 3 times a day, PRN, with food or milk, # 42 tablet, Refills 0, Tot. Refills 0, Maintenance, for pain, 01/08/20 15:50:00 EDT, Route to Pharmacy Electronically, [facility]/pharmacy #[id number], 165.1, cm, 01/08/20 15:06:00 EDT, Height, [...] 0 Refills, Maintenance, 03/23/20 8:44:00 EDT, Capsule, [facility]/pharmacy #[id number], 165.1, cm, 03/23/20 7:03:00 [...] 3 Refills, Maintenance, 07/20/19 8:49:52 EST, Tablet, [facility]/pharmacy #[id number], 1 tablet By Mouth [...]
--- OUTSIDE RECORDS SUMMARY | 2022-05-06 01:05 | XMS_ITS | Continuity of Care Document ---
:1975 Author Organization [facility] Address [address] [place] [address]- Care Team Providers Name Role Phone Alejandro Rogers MD Primary Care Physician [facility] Date[facility]s): 09/14/19 - 09/14/[address] [address]- [facility] Attending Physician: Not on Staff, Attending MD Allergies, Adverse Reactions, Alerts Substance Reaction [...] Toxoid Vaccine (oldterm) 10/03/06 Given 1Admin Note: mAPPn [id number] Note: [id number] Note: SANOFI PASTEUR Medications ASA/butalbital/caffeine 325 mg-50 mg-40 mg oral tablet 1 tablet, By Mouth, Every 4 hours, PRN for pain, 1 tablet every 4 hours PRN for headaches fax # [phone], # 30 tablet, 5 Refills, Maintenance, 12/16/17 11:20:08 EDT, Tablet Start Date: 12/16/17 Status: OrderedCPAP Food Prep Worker, 05/19/18 8:04:57 EDT, Compound Start Date: 05/19/18 Status: OrderedDiflucan 150 mg oral tablet 1 tablet = 150 mg, By Mouth, Once, # 1 tablet, 0 Refills, Soft Stop, 08/04/19 9:21:00 EST, Tablet, [facility]/pharmacy #[id number], 165.1, cm, 08/04/19 8:55:00 EST, Height Start Date: 08/04/19 Status: OrderedFlonase 50 mcg/inh nasal spray 1 sprays, Nares, Both, 2 times a day, in each nostril, # 16 Gm, 6 Refills, Maintenance, 08/04/19 14:13:00 EST, [place], [facility]/pharmacy #[id number], 1 sprays Nares, Both 2 times a day,Instr:in each nostril, 165.1, cm, 08/04/19 8:55:00 EST, Height Start Date: 08/04/19 Status: OrderedFlovent HFA 110 mcg/inh inhalation aerosol 2 puffs, Inhalation, 2 times a day, rinse mouth and throat after use, # 12 Gm, 1 Refills, Maintenance, 08/14/19 12:08:00 EST, Aerosol, [facility]/pharmacy #[id number], 165.1, cm, 08/04/19 8:55:00 EST, Height Start Date: 08/14/19 Status: OrderedFLUoxetine 20 mg oral capsule 60 mg, 3, capsule, By Mouth, Daily, # 270 capsule, Refills 3, Tot. Refills 3, Maintenance, 07/20/19 8:49:52 EST, Route to Pharmacy Electronically, [facility]/pharmacy #[id number], 165.1, cm, 07/20/19 8:25:18 EST, Height [...]
--- OUTSIDE RECORDS SUMMARY | 2022-05-06 01:05 | XMS_ITS | Continuity of Care Document ---
:1975 Author Organization [facility] Adult Address [address] [place] [address]- Care Team Providers Name Role Phone Sue MARTINEZ, Alejandro Amaya Primary Care Physician Encounter [facility] Date(s): 09/16/20 - 10/16/20 [facility] [address] [place] [address]- Allergies, Adverse Reactions, Alerts Substance Reaction Severity [...] Toxoid Vaccine (oldterm) 10/03/06 Given 1Admin Note: [employer] [facility] Clcgvg1Gdely Note: [id number] Note: SANOFI PASTEUR Medications ASA/butalbital/caffeine 325 mg-50 mg-40 mg oral tablet 1 tablet, By Mouth, Every 4 hours, PRN for pain, 1 tablet every 4 hours PRN for headaches fax # [phone], # 30 tablet, 5 Refills, Maintenance, 12/16/17 11:20:08 EDT, Tablet Start Date: 12/16/17 Status: OrderedCPAP Barrel Lathe Operator Inside, 05/19/18 8:04:57 EDT, Compound Start Date: 05/19/18 Status: Orderedcyclobenzaprine 10 mg oral tablet 10 mg, By Mouth, Every 8 hours, PRN, Muscle Spasms, # 21 tablet, Refills 0, Tot. Refills 0, Maintenance, Pain , Moderate, 09/16/20 14:52:00 EST, Route to Pharmacy Electronically, [facility]/pharmacy #[id number], Partial fill upon patient request if the prescriptio... Start Date: 09/16/20 Status: OrderedFlonase 50 mcg/inh nasal spray 1 sprays, Nares, Both, 2 times a day, in each nostril, # 48 mL, 1 Refills, Maintenance, 01/28/20 10:50:00 EDT, [place], [facility]/pharmacy #[id number], 1 sprays Nares, Both 2 times a day,Instr:in each nostril, 165.1, cm, 01/26/20 10:01:00 EDT, Height, 123, kg, 09/05... Start Date: 01/28/20 Status: OrderedFlovent HFA 110 mcg/inh inhalation aerosol 2 puffs, Inhalation, 2 times a day, rinse mouth and throat after use, # 12 Gm, 1 Refills, Maintenance, 08/14/19 12:08:00 EST, Aerosol, [facility]/pharmacy #[id number], 165.1, cm, 08/04/19 8:55:00 EST, Height Start Date: 08/14/19 Status: OrderedFLUoxetine 20 mg oral capsule 60 mg, 3, capsule, By Mouth, Daily, # 270 capsule, Refills 3, Tot. Refills 3, Maintenance, 07/20/19 8:49:52 EST, Route to Pharmacy Electronically, [facility]/pharmacy #[id number], 165.1, cm, 07/20/19 8:25:18 EST, [...] 0 Refills, Maintenance, 07/11/20 10:01:00 EST, Tablet, [facility]/pharmacy #[id number], 165.1, cm, 06/27/20 9:45:00 EST, [...] Septate uterus(Confirmed) Active 2008 no polyps or [id number] LeticiaSauk Social History Social History Type Response Smoking Status Never smoker entered on: 10/27/13 Sex
--- OUTSIDE RECORDS SUMMARY | 2022-05-06 01:05 | XMS_ITS | Continuity of Care Document ---
:1975 Author Organization [facility] Adult Address [address] [place] [address]- Care Team Providers Name Role Phone Alejandro Rogers MD Primary Care Physician [place] [facility] [place] 03[place]21 [facility] [address] [place] [address]- Attending Physician: Not on Staff, Attending MD Referring Physician: Alejandro Rogers MD Allergies, [...] Toxoid Vaccine (oldterm) 10/03/06 Given 1Admin Note: [facility]2Admin Note: [id number] Note: SANOFI PASTEUR Medications ASA/butalbital/caffeine 325 mg-50 mg-40 mg oral tablet 1 tablet, By Mouth, Every 4 hours, PRN for pain, 1 tablet every 4 hours PRN for headaches fax # [phone], # 30 tablet, 5 Refills, Maintenance, 12/16/17 11:20:08 EDT, Tablet Start Date: 12/16/17 Status: OrderedCPAP Financial Business Analyst, 05/19/18 8:04:57 EDT, Compound Start Date: 05/19/18 Status: OrderedFlonase 50 mcg/inh nasal spray 1 sprays, Nares, Both, 2 times a day, in each nostril, # 48 mL, 1 Refills, Maintenance, 01/28/20 10:50:00 EDT, [place], [facility]/pharmacy #[id number], 1 sprays Nares, Both 2 times a day,Instr:in each nostril, 165.1, cm, 01/26/20 10:01:00 EDT, Height, 123, kg, 09/05... Start Date: 01/28/20 Status: OrderedFlovent HFA 110 mcg/inh inhalation aerosol 2 puffs, Inhalation, 2 times a day, rinse mouth and throat after use, # 12 Gm, 1 Refills, Maintenance, 02/10/21 8:24:00 EDT, Aerosol, [facility]/pharmacy #[id number], 165.1, cm, 02/10/21 8:00:00 EDT, Height, 125.8,kg, 06/27/20 9:45:00 EST, Dry Weight Start Date: 02/10/21 Status: OrderedFLUoxetine 20 mg oral capsule 60 mg, 3, capsule, By Mouth, Daily, # 270 capsule, Refills 3, Tot. Refills 3, Maintenance, 07/20/19 8:49:52 EST, Route to Pharmacy Electronically, [facility]/pharmacy #[id number], 165.1, cm, 07/20/19 8:25:18 EST, [...] 0 Refills, Maintenance, 07/11/20 10:01:00 EST, Tablet, [facility]/pharmacy #[id number], 165.1, cm, 06/27/20 9:45:00 EST, Height, 125.8, kg, 06/27/20 9:45:00 EST, Dry Weight Start Date: 07/11/20 Status: OrderedMirena 52 mg intrauteral device 1 each = 52 mg, Once, 0 Refills, Maintenance, 07/25/16 15:52:04 Start Date: 07/25/16 Status: OrderedMyrbetriq 25 mg oral tablet, extended release 1 tablet = 25 mg, By Mouth, Daily, # 30 tablet, 5 Refills, Maintenance, 09/26/20 10:20:00 EST, [facility]/pharmacy #[id number], Partial fill upon patient request if the prescription is for a schedule II opioid drug., 165.1, cm, 09/16/20 14:04:00 EST, Height, 125.8... Start Date: 09/26/20 Status: OrderedTylenol 325 mg oral capsule 2 capsule = 650 mg, By Mouth, Every 4 hours, PRN as needed for pain, # 90 capsule, 0 Refills, Maintenance, 03/23/20 8:44:00 EDT, Capsule, [facility]/pharmacy #[id number], 165.1, cm, 03/23/20 7:03:00 EDT, [...] Septate uterus(Confirmed) Active 1c2008 no polyps or [id number] [facility] Vital Signs Most recent to oldest [Reference Range]: 1 Height 165.10 cm (03/21/21 7:14 AM) Weight 125.5 kg (03/21/21 7:14 AM) Oxygen Saturation [94-100 %] 99 % (03/21/21 7:14 AM) Pulse Rate [55-90 bpm] 79 bpm (03/21/21 7:14 AM) Body Mass Index [18.5-24.99] 46.04 *>HHI* (03/21/21 7:14 AM) Blood Pressure [90-138/55-84 mm Hg] 120/78 mm Hg (03/21/21 7:14 AM) Blood pressure sites Arm, right (03/21/21 7:14 AM) Social History Social History Type Response Smoking Status Never smoker entered on: 10/27/13 Sex
--- OUTSIDE RECORDS SUMMARY | 2022-05-06 01:05 | XMS_ITS | Continuity of Care Document ---
:1975 Author Organization [facility] Adult Address [address] [place] [address]- Care Team Providers Name Role Phone Sue MARTINEZ, Alejandro Amaya Primary Care Physician [place] [facility] [place]21 [facility] [address] [place] [address]- Allergies, Adverse Reactions, Alerts Substance Reaction Severity [...] Toxoid Vaccine (oldterm) 10/03/06 Given 1Admin Note: [facility]2Admin Note: [id number] Note: SANOFI PASTEUR Medications ASA/butalbital/caffeine 325 mg-50 mg-40 mg oral tablet 1 tablet, By Mouth, Every 4 hours, PRN for pain, 1 tablet every 4 hours PRN for headaches fax # [phone], # 30 tablet, 5 Refills, Maintenance, 12/16/17 11:20:08 EDT, Tablet Start Date: 12/16/17 Status: OrderedCPAP Recycling Program Manager, 05/19/18 8:04:57 EDT, Compound Start Date: 05/19/18 Status: OrderedFlonase 50 mcg/inh nasal spray 1 sprays, Nares, Both, 2 times a day, in each nostril, # 48 mL, 1 Refills, Maintenance, 01/28/20 10:50:00 EDT, [place], [facility]/pharmacy #[id number], 1 sprays Nares, Both 2 times a day,Instr:in each nostril, 165.1, cm, 01/26/20 10:01:00 EDT, Height, 123, kg, 09/05... Start Date: 01/28/20 Status: OrderedFlovent HFA 110 mcg/inh inhalation aerosol 2 puffs, Inhalation, 2 times a day, rinse mouth and throat after use, # 12 Gm, 1 Refills, Maintenance, 02/10/21 8:24:00 EDT, Aeros[place], [facility]/pharmacy #[id number], 165.1, cm, 02/10/21 8:00:00 EDT, Height, 125.8,kg, 06/27/20 9:45:00 EST, Dry Weight Start Date: 02/10/21 Status: OrderedFLUoxetine 20 mg oral capsule 60 mg, 3, capsule, By Mouth, Daily, # 270 capsule, Refills 3, Tot. Refills 3, Maintenance, 07/20/19 8:49:52 EST, Route to Pharmacy Electronically, [facility]/pharmacy #[id number], 165.1, cm, 07/20/19 8:25:18 [...] 0 Refills, Maintenance, 07/11/20 10:01:00 EST, Tablet, [facility]/pharmacy #[id number], 165.1, cm, 06/27/20 9:45:00 [...] tablet, 5 Refills, Maintenance, 09/26/20 10:20:00 EST, [facility]/pharmacy #[id number], Partial fill upon patient request if the prescription is for a schedule II opioid drug., 165.1, cm, 09/16/20 14:04:00 EST, Height, 125.8... Start Date: 09/26/20 Status: OrderedTylenol 325 mg oral capsule 2 capsule = 650 mg, By Mouth, Every 4 hours, PRN as needed for pain, # 90 capsule, 0 Refills, Maintenance, 03/23/20 8:44:00 EDT, Capsule, [facility]/pharmacy #[id number], 165.1, cm, 03/23/20 7:03:00 [...] Septate uterus(Confirmed) Active 2008 no polyps or [id number] Leticia-Juju Social History Social History Type Response Smoking Status Never smoker entered on: 10/27/13 Sex
--- OUTSIDE RECORDS SUMMARY | 2022-05-06 01:05 | XMS_ITS | Continuity of Care Document ---
:1975 Author Organization [facility] Adult Address [address] [place] [address]- Care Team Providers Name Role Phone Sue MARTINEZ, Alejandro Amaya Primary Care Physician [place] [facility] [place]22 [facility] [address] [place] [address]- Allergies, Adverse Reactions, Alerts Substance Reaction Severity [...] Toxoid Vaccine (oldterm) 10/03/06 Given 1Admin Note: [facility]2Admin Note: [id number] Note: SANOFI PASTEUR Medications amLODIPine 5 mg oral tablet 5 mg, 1, tablet, By Mouth, Daily, # 90 tablet, Refills 1, Tot. Refills 1, Maintenance, 12/07/21 15:39:00 EDT, Route to Pharmacy Electronically, [facility]/pharmacy #[id number], Partial fill upon patient request if the prescription is for a schedule II opioid drug.... Start Date: 12/07/21 Status: OrderedASA/butalbital/caffeine 325 mg-50 mg-40 mg oral tablet 1 tablet, By Mouth, Every 4 hours, PRN for pain, 1 tablet every 4 hours PRN for headaches fax # [phone], # 30 tablet, 5 Refills, Maintenance, 12/16/17 11:20:08 EDT, Tablet Start Date: 12/16/17 Status: OrderedCPAP Insurance Commissioner, 05/19/18 8:04:57 EDT, Compound Start Date: 05/19/18 Status: OrderedEpiPen 2-Maxi 0.3 mg injectable kit = 0.3 mg, Intramuscular, Once, # 1 each, 0 Refills, Soft Stop, 09/12/21 10:04:00 EST, [facility]/pharmacy #[id number], Partial fill upon patient request if the prescription is for a schedule II opioid drug., 165.1,cm, 03/21/21 7:14:00 EDT, Height, 125.8, kg, 06/06... Start Date: 09/12/21 Status: OrderedFlonase 50 mcg/inh nasal spray 1 sprays, Nares, Both, 2 times a day, in each nostril, # 48 mL, 1 Refills, Maintenance, 01/28/20 10:50:00 EDT, [place], [facility]/pharmacy #[id number], 1 sprays Nares, Both 2 times a day,Instr:in each nostril, 165.1, cm, 01/26/20 10:01:00 EDT, Height, 123, kg, 09/05... Start Date: 01/28/20 Status: OrderedFlovent HFA 110 mcg/inh inhalation aerosol 2 puffs, Inhalation, 2 times a day, rinse mouth and throat after use, # 12 Gm, 1 Refills, Maintenance, 02/10/21 8:24:00 EDT, Aeros[place], [facility]/pharmacy #[id number], 165.1, cm, 02/10/21 8:00:00 EDT, Height, 125.8,kg, 06/27/20 9:45:00 EST, Dry Weight Start Date: 02/10/21 Status: OrderedFLUoxetine 20 mg oral capsule 60 mg, 3, capsule, By Mouth, Daily, # 270 capsule, Refills 3, Tot. Refills 3, Maintenance, 07/20/19 8:49:52 EST, Route to Pharmacy Electronically, [facility]/pharmacy #[id number], 165.1, cm, 07/20/19 [...] 90 tablet, 0 Refills, 11/07/21 10:38:00 EDT, [facility]/pharmacy #[id number], 90, 1 tablet By Mouth Daily, 165.1, cm, 11/06/21 15:50:00 EDT, Height, 125.8, kg, 06/27/20 9:45:00 EST, DryWeight Start Date: 11/07/21 Status: OrderedKlonoPIN 0.5 mg oral tablet 1 tablet = 0.5 mg, By Mouth, 2 times a day, # 60 tablet, 0 Refills, Maintenance, 03/05/22 15:01:00 EDT, Tablet, [facility]/pharmacy #[id number], 165.1, cm, 03/05/22 14:21:00 EDT, [...] Severe obesity(Confirmed) Active 1c2008 no polyps or [id number] [facility] Social History Social History Type Response Smoking Status Never smoker entered on: 10/27/13 Sex
--- OUTSIDE RECORDS SUMMARY | 2022-05-06 01:05 | XMS_ITS | Continuity of Care Document ---
:1975 Author Organization [facility] Address [address] [place] [address]- Care Team Providers Name Role Phone Alejandro Rogers MD Primary Care Physician En[place] [facility] [place] Date(s): 09/14/19 - 09/21/19 [facility] [address] [place] [address]- Attending Physician: Not on Staff, Attending MD [...] Toxoid Vaccine (oldterm) 10/03/06 Given 1Admin Note: [facility]uy[facility]2Mwgdf Note: [id number] Note: SANOFI PASTEUR Medications ASA/butalbital/caffeine 325 mg-50 mg-40 mg oral tablet 1 tablet, By Mouth, Every 4 hours, PRN for pain, 1 tablet every 4 hours PRN for headaches fax # [phone], # 30 tablet, 5 Refills, Maintenance, 12/16/17 11:20:08 EDT, Tablet Start Date: 12/16/17 Status: OrderedCPAP Sash Repairer, 05/19/18 8:04:57 EDT, Compound Start Date: 05/19/18 Status: OrderedDiflucan 150 mg oral tablet 1 tablet = 150 mg, By Mouth, Once, # 1 tablet, 0 Refills, Soft Stop, 08/04/19 9:21:00 EST, Tablet, [facility]/pharmacy #[id number], 165.1, cm, 08/04/19 8:55:00 EST, Height Start Date: 08/04/19 Status: OrderedFlonase 50 mcg/inh nasal spray 1 sprays, Nares, Both, 2 times a day, in each nostril, # 16 Gm, 6 Refills, Maintenance, 08/04/19 14:13:00 EST, [place], [facility]/pharmacy #[id number], 1 sprays Nares, Both 2 times a day,Instr:in each nostril, 165.1, cm, 08/04/19 8:55:00 EST, Height Start Date: 08/04/19 Status: OrderedFlovent HFA 110 mcg/inh inhalation aerosol 2 puffs, Inhalation, 2 times a day, rinse mouth and throat after use, # 12 Gm, 1 Refills, Maintenance, 08/14/19 12:08:00 EST, Aerosol, [facility]/pharmacy #[id number], 165.1, cm, 08/04/19 8:55:00 EST, Height Start Date: 08/14/19 Status: OrderedFLUoxetine 20 mg oral capsule 60 mg, 3, capsule, By Mouth, Daily, # 270 capsule, Refills 3, Tot. Refills 3, Maintenance, 07/20/19 8:49:52 EST, Route to Pharmacy Electronically, [facility]/pharmacy #[id number], 165.1, cm, 07/20/19 8:25:18 EST, [...] tablet, 0 Refills, Maintenance, 08/04/19 9:20:00 EST, [facility]/pharmacy #[id number], 165.1, cm, 08/04/19 8:55:00 EST, [...] oldest [Reference Range]: 1 Height 165.10 cm (09/14/19 9:02 AM) Weight 123 kg (09/14/19 9:02 AM) Body Mass Index [18.5-24.99] 45.12 *>HHI* (09/14/19 9:02 AM) Blood Pressure [90-138/55-84 mm Hg] 108/74 mm Hg (09/14/19 9:02 AM) Blood pressure sites Arm, right (09/14/19 9:02 AM) Dry Weight 123 kg (09/14/19 9:02 AM) Weight Obtained Via Standing scale (09/14/19 9:02 AM) Dry Weight Obtained Via Standing scale (09/14/19 9:02 AM) Social History Social History Type Response Smoking Status Never smoker entered on: 10/27/13 Sex
--- OUTSIDE RECORDS SUMMARY | 2022-05-06 01:05 | XMS_ITS | Continuity of Care Document ---
:1975 Author Organization [facility] Adult Address [address] [place] [address]- Care Team Providers Name Role Phone Sue MARTINEZ, Alejandro Amaya Primary Care Physician Encounter [facility] Date(s): 02/16/21 - 02/23/21 [facility] Adult [address] [place] [address]- Attending Physician: Lisbet PARK, Maude Barkley Allergies, [...] Toxoid Vaccine (oldterm) 10/03/06 Given 1Admin Note: [facility]2Admin Note: [id number] Note: SANOFI PASTEUR Medications ASA/butalbital/caffeine 325 mg-50 mg-40 mg oral tablet 1 tablet, By Mouth, Every 4 hours, PRN for pain, 1 tablet every 4 hours PRN for headaches fax # [phone], # 30 tablet, 5 Refills, Maintenance, 12/16/17 11:20:08 EDT, Tablet Start Date: 12/16/17 Status: OrderedAzithromycin 5 Day Dose Pack 250 mg oral tablet 1 pack/packet, By Mouth, Once, # 6 tablet, 0 Refills, Soft Stop, 02/16/21 11:30:00 EDT, Tablet, [facility]/pharmacy #[id number], Partial fill upon patient request if the prescription is for a schedule II opioid drug., 165.1, cm, 02/16/21 10:47:00 EDT, Height, 125.... Start Date: 02/16/21 Status: OrderedCPAP Automation And Controls Supervisor, 05/19/18 8:04:57 EDT, Compound Start Date: 05/19/18 Status: Orderedcyclobenzaprine 10 mg oral tablet 10 mg, By Mouth, Every 8 hours, PRN, Muscle Spasms, # 21 tablet, Refills 0, Tot. Refills 0, Maintenance, Pain , Moderate, 09/16/20 14:52:00 EST, Route to Pharmacy Electronically, [facility]pharmacy [id number], Partial fill upon patient request [...] mL, 1 Refills, Maintenance, 01/28/20 10:50:00 EDT, [place], [id number], 1 sprays Nares, Both 2 times a day,Instr:in each nostril, 165.1, cm, 01/26/20 10:01:00 EDT, Height, 123, kg, 09/05... Start Date: 01/28/20 Status: OrderedFlovent HFA 110 mcg/inh inhalation aerosol 2 puffs, Inhalation, 2 times a day, rinse mouth and throat after use, # 12 Gm, 1 Refills, Maintenance, 02/10/21 8:24:00 EDT, Aeros[place], [facility]/pharmacy #[id number], 165.1, cm, 02/10/21 8:00:00 EDT, Height, 125.8,kg, 06/27/20 9:45:00 EST, Dry Weight Start Date: 02/10/21 Status: OrderedFLUoxetine 20 mg oral capsule 60 mg, 3, capsule, By Mouth, Daily, # 270 capsule, Refills 3, Tot. Refills 3, Maintenance, 07/20/19 8:49:52 EST, Route to Pharmacy Electronically, [facility]/pharmacy #[id number], 165.1, cm, 07/20/19 [...] 0 Refills, Maintenance, 07/11/20 10:01:00 EST, Tablet, [facility]/pharmacy #[id number], 165.1, cm, 06/27/20 [...] 0 Refills, Maintenance, 03/23/20 8:44:00 EDT, Capsule, [facility]/pharmacy #[id number], 165.1, cm, 03/23/20 7:03:00 EDT, [...] 1 Refills, Maintenance, 07/11/20 10:00:00 EST, Tablet, [facility]/pharmacy #[id number], 1 tablet By Mouth Daily, [...] uterus(Confirmed) Active 1colo 2008 no polyps or [id number] [facility] Vital Signs Most recent to oldest [Reference Range]: 1 Height 165.10 cm (02/16/21 10:47 AM) Weight 122.2 kg (02/16/21 10:47 AM) Oxygen Saturation [94-100 %] 98 % (02/16/21 10:47 AM) Pulse Rate [55-90 bpm] 86 bpm (02/16/21 10:47 AM) Body Mass Index [18.5-24.99] 44.83 *>HHI* (02/16/21 10:47 AM) Blood Pressure [90-138/55-84 mm Hg] 124/78 mm Hg (02/16/21 10:47 AM) Temperature [96.8-100.4 DegF] 99.0 DegF (02/16/21 10:47 AM) Blood pressure sites Arm, right (02/16/21 10:47 AM) Temperature Route Oral (02/16/21 10:47 AM) Social History Social History Type Response Smoking Status Never smoker entered on: 10/27/13 Sex
--- OUTSIDE RECORDS SUMMARY | 2022-05-06 01:05 | XMS_ITS | Continuity of Care Document ---
:1975 Author Organization [facility] Adult Address [address] [place] [address]- Care Team Providers Name Role Phone Sue MARTINEZ, Alejandro Amaya Primary Care Physician [facility]counter [facility] Date(s): 02/13/22 - 03/15/22 [facility] Adult [address] [place] [address]- Allergies, Adverse Reactions, Alerts Substance Reaction Severity [...] Toxoid Vaccine (oldterm) 10/03/06 Given 1Admin Note: [facility]2Admin Note: [id number] Note: SANOFI PASTEUR Medications amLODIPine 5 mg oral tablet 5 mg, 1, tablet, By Mouth, Daily, # 90 tablet, Refills 1, Tot. Refills 1, Maintenance, 12/07/21 15:39:00 EDT, Route to Pharmacy Electronically, [facility]/pharmacy #[id number], Partial fill upon patient request if the prescription is for a schedule II opioid drug.... Start Date: 12/07/21 Status: OrderedASA/butalbital/caffeine 325 mg-50 mg-40 mg oral tablet 1 tablet, By Mouth, Every 4 hours, PRN for pain, 1 tablet every 4 hours PRN for headaches fax # [phone], # 30 tablet, 5 Refills, Maintenance, 12/16/17 11:20:08 EDT, Tablet Start Date: 12/16/17 Status: OrderedCPAP Route Sales Associate, 05/19/18 8:04:57 EDT, Compound Start Date: 05/19/18 Status: OrderedEpiPen 2-Maxi 0.3 mg injectable kit = 0.3 mg, Intramuscular, Once, # 1 each, 0 Refills, Soft Stop, 09/12/21 10:04:00 EST, [facility]/pharmacy #[id number], Partial fill upon patient request if the prescription is for a schedule II opioid drug., 165.1,cm, 03/21/21 7:14:00 EDT, Height, 125.8, kg, 06/06... Start Date: 09/12/21 Status: OrderedFlonase 50 mcg/inh nasal spray 1 sprays, Nares, Both, 2 times a day, in each nostril, # 48 mL, 1 Refills, Maintenance, 01/28/20 10:50:00 EDT, [place], [facility]/pharmacy #[id number], 1 sprays Nares, Both 2 times a day,Instr:in each nostril, 165.1, cm, 01/26/20 10:01:00 EDT, Height, 123, kg, 09/05... Start Date: 01/28/20 Status: OrderedFlovent HFA 110 mcg/inh inhalation aerosol 2 puffs, Inhalation, 2 times a day, rinse mouth and throat after use, # 12 Gm, 1 Refills, Maintenance, 02/10/21 8:24:00 EDT, Aerosol, [facility]/pharmacy #[id number], 165.1, cm, 02/10/21 8:00:00 EDT, Height, 125.8,kg, 06/27/20 9:45:00 EST, Dry Weight Start Date: 02/10/21 Status: OrderedFLUoxetine 20 mg oral capsule 60 mg, 3, capsule, By Mouth, Daily, # 270 capsule, Refills 3, Tot. Refills 3, Maintenance, 07/20/19 8:49:52 EST, Route to Pharmacy Electronically, [facility]/pharmacy #[id number], 165.1, cm, 07/20/19 8:25:18 EST, Height [...] 90 tablet, 0 Refills, 11/07/21 10:38:00 EDT, [facility]/pharmacy #[id number], 90, 1 tablet By Mouth Daily, 165.1, cm, 11/06/21 15:50:00 EDT, Height, 125.8, kg, 06/27/20 9:45:00 EST, DryWeight Start Date: 11/07/21 Status: OrderedKlonoPIN 0.5 mg oral tablet 1 tablet = 0.5 mg, By Mouth, 2 times a day, # 60 tablet, 0 Refills, Maintenance, 03/05/22 15:01:00 EDT, Tablet, [facility]/pharmacy #[id number], 165.1, cm, 03/05/22 14:21:00 EDT, Height, [...] Severe obesity(Confirmed) Active 1c2008 no polyps or [id number] [facility] Social History Social History Type Response Smoking Status Never smoker entered on: 10/27/13 Sex
--- OUTSIDE RECORDS SUMMARY | 2022-05-06 01:05 | XMS_ITS | Continuity of Care Document ---
:1975 Author Organization [facility] Adult Address [address] [place] [address]- Care Team Providers Name Role Phone Sue MARTINEZ, Alejandro Amaya Primary Care Physician Encounter [facility] Date(s): 11/06/21 - 11/13/21 [facility] Adult [address] [place] [address]- Attending Physician: Not on Staff, Attending MD [...] Toxoid Vaccine (oldterm) 3/1/07 Given 1Admin Note: [employer] Anvcqa3Tbyau Note: [id number] Note: SANOFI PASTEUR Medications amLODIPine 5 mg oral tablet 5 mg, 1, tablet, By Mouth, Daily, # 30 tablet, Refills 1, Tot. Refills 1, Maintenance, 11/06/21 15:02:00 EDT, Route to Pharmacy Electronically, [facility]/pharmacy #[id number], Partial fill upon patient request if the prescription is for a schedule II opioid drug.... Start Date: 11/06/21 Status: OrderedASA/butalbital/caffeine 325 mg-50 mg-40 mg oral tablet 1 tablet, By Mouth, Every 4 hours, PRN for pain, 1 tablet every 4 hours PRN for headaches fax # [phone], # 30 tablet, 5 Refills, Maintenance, 12/16/17 11:20:08 EDT, Tablet Start Date: 12/16/17 Status: OrderedCPAP Roof Painter, 05/19/18 8:04:57 EDT, Compound Start Date: 05/19/18 Status: OrderedEpiPen 2-Maxi 0.3 mg injectable kit = 0.3 mg, Intramuscular, Once, # 1 each, 0 Refills, Soft Stop, 09/12/21 10:04:00 EST, [facility]/pharmacy #[id number], Partial fill upon patient request if the prescription is for a schedule II opioid drug., 165.1,cm, 03/21/21 7:14:00 EDT, Height, 125.8, kg, 112... Start Date: 09/12/21 Status: OrderedFlonase 50 mcg/inh nasal spray 1 sprays, Nares, Both, 2 times a day, in each nostril, # 48 mL, 1 Refills, Maintenance, 01/28/20 10:50:00 EDT, [place], [facility]/pharmacy #[id number], 1 sprays Nares, Both 2 times a day,Instr:in each nostril, 165.1, cm, 01/26/20 10:01:00 EDT, Height, 123, kg, 09/05... Start Date: 01/28/20 Status: OrderedFlovent HFA 110 mcg/inh inhalation aerosol 2 puffs, Inhalation, 2 times a day, rinse mouth and throat after use, # 12 Gm, 1 Refills, Maintenance, 02/10/21 8:24:00 EDT, Aerosol, [facility]/pharmacy #[id number], 165.1, cm, 02/10/21 8:00:00 EDT, Height, 125.8,kg, 06/27/20 9:45:00 EST, Dry Weight Start Date: 02/10/21 Status: OrderedFLUoxetine 20 mg oral capsule 60 mg, 3, capsule, By Mouth, Daily, # 270 capsule, Refills 3, Tot. Refills 3, Maintenance, 07/20/19 8:49:52 EST, Route to Pharmacy Electronically, [facility]/pharmacy #[id number], 165.1, cm, 07/20/19 8:25:18 EST, [...] 90 tablet, 0 Refills, 11/07/21 10:38:00 EDT, [facility]/pharmacy #[id number], 90, 1 tablet By Mouth Daily, 165.1, cm, 11/06/21 15:50:00 EDT, Height, 125.8, kg, 06/27/20 9:45:00 EST, DryWeight Start Date: 11/07/21 Status: OrderedKlonoPIN 0.5 mg oral tablet 1 tablet = 0.5 mg, By Mouth, 2 times a day, # 60 tablet, 0 Refills, Maintenance, 07/11/20 10:01:00 EST, Tablet, [facility]/pharmacy #[id number], 165.1, cm, 06/27/20 9:45:00 EST, Height, 125.8, kg, 06/27/20 9:45:00 EST, Dry Weight Start Date: 07/11/20 Status: OrderedMirena 52 mg intrauteral device 1 each = 52 mg, Once, 0 Refills, Maintenance, 07/25/16 15:52:04 Start Date: 07/25/16 Status: OrderedMyrbetriq 25 mg oral tablet, extended release 1 tablet = 25 mg, By Mouth, Daily, # 30 tablet, 5 Refills, Maintenance, 09/26/20 10:20:00 EST, [facility]/pharmacy #[id number], Partial fill upon patient request [...] Severe obesity(Confirmed) Active 2008 no polyps or [id number] [facility] Vital Signs Most recent to oldest [Reference Range]: 1 2 Height 165.10 cm 165.10 cm (11/06/21 3:50 PM) (11/06/21 2:22 PM) Weight 127.7 kg (11/06/21 2:22 PM) Oxygen Saturation [94-100 %] 99 % (11/06/21 2:22 PM) Pulse Rate [55-90 bpm] 90 bpm (11/06/21 2:22 PM) Body Mass Index [18.5-24.99] 46.85 *>HHI* (11/06/21 2:22 PM) Blood Pressure [90-138/55-84 mm Hg] 154/90 mm Hg 158/ 100 mm Hg *H* *H* (11/06/21 3:50 PM) (11/06/21 2:22 PM) Respiratory Rate [16-30 br/min] 20 br/min (11/06/21 2:22 PM) Mode of Delivery (Oxygen) Room air (11/06/21 2:22 PM) Blood pressure sites Arm, right Arm, left (11/06/21 3:50 PM) (11/06/21 2:22 PM) Weight Obtained Via Standing scale (11/06/21 2:22 PM) Social History Social History Type Response Smoking Status Never smoker entered on: 10/27/13 Sex
--- OUTSIDE RECORDS SUMMARY | 2022-05-06 01:05 | XMS_ITS | Continuity of Care Document ---
:1975 Author Organization [facility] pt Address [address] [place] [address]- Care Team Providers Name Role Phone Alejandro Rogers MD Primary Care Physician Encounter [facility] Date(s): 01/22/22 - 01/29/22 [facility] [address] [place] [address]- Attending Physician: Not on Staff, Attending MD [...] Toxoid Vaccine (oldterm) 10/03/06 Given 1Admin Note: [facility]Nsqdqm7Vgkph Note: [id number] Note: SANOFI PASTEUR Medications amLODIPine 5 mg oral tablet 5 mg, 1, tablet, By Mouth, Daily, # 90 tablet, Refills 1, Tot. Refills 1, Maintenance, 12/07/21 15:39:00 EDT, Route to Pharmacy Electronically, [facility]/pharmacy #[id number], Partial fill upon patient request if the prescription is for a schedule II opioid drug.... Start Date: 12/07/21 Status: OrderedASA/butalbital/caffeine 325 mg-50 mg-40 mg oral tablet 1 tablet, By Mouth, Every 4 hours, PRN for pain, 1 tablet every 4 hours PRN for headaches fax # [phone], # 30 tablet, 5 Refills, Maintenance, 12/16/17 11:20:08 EDT, Tablet Start Date: 12/16/17 Status: OrderedCPAP Primary Grade Teacher, 05/19/18 8:04:57 EDT, Compound Start Date: 05/19/18 Status: OrderedEpiPen 2-Maxi 0.3 mg injectable kit = 0.3 mg, Intramuscular, Once, # 1 each, 0 Refills, Soft Stop, 09/12/21 10:04:00 EST, [facility]/pharmacy #[id number], Partial fill upon patient request if the prescription is for a schedule II opioid drug., 165.1,cm, 03/21/21 7:14:00 EDT, Height, 125.8, kg, 06/06... Start Date: 09/12/21 Status: OrderedFlonase 50 mcg/inh nasal spray 1 sprays, Nares, Both, 2 times a day, in each nostril, # 48 mL, 1 Refills, Maintenance, 01/28/20 10:50:00 EDT, [place], [facility]/pharmacy #[id number], 1 sprays Nares, Both 2 times a day,Instr:in each nostril, 165.1, cm, 01/26/20 10:01:00 EDT, Height, 123, kg, 09/05... Start Date: 01/28/20 Status: OrderedFlovent HFA 110 mcg/inh inhalation aerosol 2 puffs, Inhalation, 2 times a day, rinse mouth and throat after use, # 12 Gm, 1 Refills, Maintenance, 02/10/21 8:24:00 EDT, [place], [facility]/pharmacy #[id number], 165.1, cm, 02/10/21 8:00:00 EDT, Height, 125.8,kg, 06/27/20 9:45:00 EST, Dry Weight Start Date: 02/10/21 Status: OrderedFLUoxetine 20 mg oral capsule 60 mg, 3, capsule, By Mouth, Daily, # 270 capsule, Refills 3, Tot. Refills 3, Maintenance, 07/20/19 8:49:52 EST, Route to Pharmacy Electronically, [facility]/pharmacy #[id number], 165.1, cm, 07/20/19 8:25:18 [...] 90 tablet, 0 Refills, 11/07/21 10:38:00 EDT, [facility]/pharmacy #[id number], 90, 1 tablet By Mouth Daily, 165.1, cm, 11/06/21 15:50:00 EDT, Height, 125.8, kg, 06/27/20 9:45:00 EST, DryWeight Start Date: 11/07/21 Status: OrderedKlonoPIN 0.5 mg oral tablet 1 tablet = 0.5 mg, By Mouth, 2 times a day, # 60 tablet, 0 Refills, Maintenance, 07/11/20 10:01:00 EST, Tablet, [facility]/pharmacy #[id number], 165.1, cm, 06/27/20 9:45:00 EST, Height, 125.8, kg, 06/27/20 9:45:00 EST, Dry Weight Start Date: 07/11/20 Status: OrderedMirena 52 mg intrauteral device 1 each = 52 mg, Once, 0 Refills, Maintenance, 07/25/16 15:52:04 Start Date: 07/25/16 Status: OrderedPaxlovid 150 mg-100 mg oral tablet See Instructions, 3 tablets po bid x 5 days, # 30 tablet, 0 Refills, Maintenance, 01/22/22 17:11:00 EDT, [facility]/pharmacy #[id number], Partial fill upon patient request if the prescription is for a schedule II opioid drug., 3 tablets po bid x 5 days, 165.1, cm,... Start Date: 01/22/22 Status: OrderedTessalon Perles 100 mg oral capsule 1 capsule = 100 mg, By Mouth, 3 times a day, PRN as needed for cough, for 7 days, # 21 capsule, 0 Refills, Acute 01/31/22 9:13:00 EDT, 01/24/22 9:13:00 EDT, Capsule, [facility]acy [id number], Partial fill upon patient request if the prescription is for a sc... Start Date: 01/24/22 Stop Date: 01/31/22 Status: OrderedTylenol 325 mg oral capsule 2 [...] Severe obesity(Confirmed) Active 1c2008 no polyps or [id number] [employer] Social History Social History Type Response Smoking Status Never smoker entered on: 10/27/13 Sex
--- OUTSIDE RECORDS SUMMARY | 2022-05-06 01:05 | XMS_ITS | Continuity of Care Document ---
:1975 Author Organization [facility] Adult Address [address] [place] [address]- Care Team Providers Name Role Phone Sue MARTINEZ, Alejandro Amaya Primary Care Physician Encounter [facility] Date(s): 06/20/20 - 07/20/20 [facility] Adult [address] [place] [id number]- Allergies, Adverse Reactions, Alerts Substance Reaction Severity [...] Toxoid Vaccine (oldterm) 10/03/06 Given 1Admin Note: [id number] Note: [id number] Note: SANOFI PASTEUR Medications ASA/butalbital/caffeine 325 mg-50 mg-40 mg oral tablet 1 tablet, By Mouth, Every 4 hours, PRN for pain, 1 tablet every 4 hours PRN for headaches fax # [phone], # 30 tablet, 5 Refills, Maintenance, 12/16/17 11:20:08 EDT, Tablet Start Date: 12/16/17 Status: OrderedCPAP Jewel Hole Finish Opener, 05/19/18 8:04:57 EDT, Compound Start Date: 05/19/18 Status: OrderedFlonase 50 mcg/inh nasal spray 1 sprays, Nares, Both, 2 times a day, in each nostril, # 48 mL, 1 Refills, Maintenance, 01/28/20 10:50:00 EDT, [place], [facility]/pharmacy #[id number], 1 sprays Nares, Both 2 times a day,Instr:in each nostril, 165.1, cm, 01/26/20 10:01:00 EDT, Height, 123, kg, 09/05... Start Date: 01/28/20 Status: OrderedFlovent HFA 110 mcg/inh inhalation aerosol 2 puffs, Inhalation, 2 times a day, rinse mouth and throat after use, # 12 Gm, 1 Refills, Maintenance, 08/14/19 12:08:00 EST, Aeros[place], [facility]/pharmacy #[id number], 165.1, cm, 08/04/19 8:55:00 EST, Height Start Date: 08/14/19 Status: OrderedFLUoxetine 20 mg oral capsule 60 mg, 3, capsule, By Mouth, Daily, # 270 capsule, Refills 3, Tot. Refills 3, Maintenance, 07/20/19 8:49:52 EST, Route to Pharmacy Electronically, [facility]/pharmacy #[id number], 165.1, cm, 07/20/19 8:25:18 EST, Height Start Date: 07/20/19 Status: OrderedKlonoPIN 0.5 mg oral tablet 1 tablet = 0.5 mg, By Mouth, 2 times a day, # 60 tablet, 0 Refills, Maintenance, 07/11/20 10:01:00 EST, Tablet, [facility]/pharmacy #[id number], 165.1, cm, 06/27/20 9:45:00 EST, Height, [...] Septate uterus(Confirmed) Active 1c2008 no polyps or [id number] [facility] Social History Social History Type Response Smoking Status Never smoker entered on: 10/27/13 Sex
--- OUTSIDE RECORDS SUMMARY | 2022-05-06 01:06 | XMS_ITS | Continuity of Care Document ---
:1975 Author Organization [facility] Adult Address [address] [place] [address]- Care Team Providers Name Role Phone Sue MARTINEZ, Alejandro Amaya Primary Care Physician Encounter [facility] Date(s): 10/11/20 - 10/18/20 [facility] Adult [address] [place] [address]- Attending Physician: Not on Staff, Attending MD Referring Physician: Lisbet PARK, Maude Barkley Allergies, [...] Toxoid Vaccine (oldterm) 10/03/06 Given 1Admin Note: [employer] [facility]Qytdwj3Vbysg Note: [id number] Note: SANOFI PASTEUR Medications ASA/butalbital/caffeine 325 mg-50 mg-40 mg oral tablet 1 tablet, By Mouth, Every 4 hours, PRN for pain, 1 tablet every 4 hours PRN for headaches fax # [phone], # 30 tablet, 5 Refills, Maintenance, 12/16/17 11:20:08 EDT, Tablet Start Date: 12/16/17 Status: OrderedCPAP Virtual Assistant [employer], 05/19/18 8:04:57 EDT, Compound Start Date: 05/19/18 Status: Orderedcyclobenzaprine 10 mg oral tablet 10 mg, By Mouth, Every 8 hours, PRN, Muscle Spasms, # 21 tablet, Refills 0, Tot. Refills 0, Maintenance, Pain , Moderate, 09/16/20 14:52:00 EST, Route to Pharmacy Electronically, [facility]/pharmacy #[id number], Partial fill upon patient request if the prescriptio... Start Date: 09/16/20 Status: OrderedFlonase 50 mcg/inh nasal spray 1 sprays, Nares, Both, 2 times a day, in each nostril, # 48 mL, 1 Refills, Maintenance, 01/28/20 10:50:00 EDT, [place], [facility]/pharmacy #[id number], 1 sprays Nares, Both 2 times a day,Instr:in each nostril, 165.1, cm, 01/26/20 10:01:00 EDT, Height, 123, kg, 09/05... Start Date: 01/28/20 Status: OrderedFlovent HFA 110 mcg/inh inhalation aerosol 2 puffs, Inhalation, 2 times a day, rinse mouth and throat after use, # 12 Gm, 1 Refills, Maintenance, 08/14/19 12:08:00 EST, Aerosol, [facility]/pharmacy #[id number], 165.1, cm, 08/04/19 8:55:00 EST, Height Start Date: 08/14/19 Status: OrderedFLUoxetine 20 mg oral capsule 60 mg, 3, capsule, By Mouth, Daily, # 270 capsule, Refills 3, Tot. Refills 3, Maintenance, 07/20/19 8:49:52 EST, Route to Pharmacy Electronically, [facility]/pharmacy #[id number], 165.1, cm, 07/20/19 8:25:18 EST, [...] 0 Refills, Maintenance, 07/11/20 10:01:00 EST, Tablet, [facility]/pharmacy #[id number], 165.1, cm, 06/27/20 9:45:00 EST, Height, 125.8, kg, 06/27/20 9:45:00 EST, Dry Weight Start Date: 07/11/20 Status: OrderedMirena 52 mg intrauteral device 1 each = 52 mg, Once, 0 Refills, Maintenance, 07/25/16 15:52:04 Start Date: 07/25/16 Status: OrderedMyrbetriq 25 mg oral tablet, extended release 1 tablet = 25 mg, By Mouth, Daily, # 30 tablet, 5 Refills, Maintenance, 09/26/20 10:20:00 EST, [facility]/pharmacy #[id number], Partial fill upon patient request if the prescription is for a schedule II opioid drug., 165.1, cm, 09/16/20 14:04:00 EST, Height, 125.8... Start Date: 09/26/20 Status: Orderedoxybutynin 10 mg/24 hr oral tablet, extended release 1 tablet = 10 mg, By Mouth, Daily, # 30 tablet, 5 Refills, Maintenance, 06/27/20 10:16:00 EST, ER Tablet, [facility]/pharmacy #[id number], Partial fill upon patient request, 165.1, cm, 06/27/20 9:45:00 EST, Height,125.8, kg, 06/27/20 9:45:00 EST, Dry Weight Start Date: 06/27/20 Status: OrderedTylenol 325 mg oral capsule 2 capsule = 650 mg, By Mouth, Every 4 hours, PRN as needed for pain, # 90 capsule, 0 Refills, Maintenance, 03/23/20 8:44:00 EDT, Capsule, [facility]/pharmacy #[id number], 165.1, cm, 03/23/20 7:03:00 EDT, [...] Septate uterus(Confirmed) Active 1c2008 no polyps or [id number] [employer] Vital Signs Most recent to oldest [Reference Range]: 1 Height 165.10 cm (10/11/20 2:25 PM) Social History Social History Type Response Smoking Status Never smoker entered on: 10/27/13 Sex
--- OUTSIDE RECORDS SUMMARY | 2022-05-06 01:06 | XMS_ITS | Continuity of Care Document ---
:1975 Author Organization [facility] [employer] [facility] Address [address] [place] [address], [address] [place] [address]- Care Team Providers Name Role Phone Alejandro Rogers MD Primary Care Physician Encounter [facility] Date(s): 05/18/20 - 09/15/20 [facility] [employer] [facility] [address] [place] [address], [address] [place] [id number]- Attending Physician: Kacie Huff MD Referring Physician: [...] Toxoid Vaccine (oldterm) 10/03/06 Given 1Admin Note: [employer] [facility]fnya6Gp[facility]ct Note: [id number] Note: SANOFI PASTEUR Medications ASA/butalbital/caffeine 325 mg-50 mg-40 mg oral tablet 1 tablet, By Mouth, Every 4 hours, PRN for pain, 1 tablet every 4 hours PRN for headaches fax # [phone], # 30 tablet, 5 Refills, Maintenance, 12/16/17 11:20:08 EDT, Tablet Start Date: 12/16/17 Status: OrderedCPAP Manager Art, 05/19/18 8:04:57 EDT, Compound Start Date: 05/19/18 Status: OrderedFlonase 50 mcg/inh nasal spray 1 sprays, Nares, Both, 2 times a day, in each nostril, # 48 mL, 1 Refills, Maintenance, 01/28/20 10:50:00 EDT, [place], [facility]/pharmacy #[id number], 1 sprays Nares, Both 2 times a day,Instr:in each nostril, 165.1, cm, 01/26/20 10:01:00 EDT, Height, 123, kg, 09/05... Start Date: 01/28/20 Status: OrderedFlovent HFA 110 mcg/inh inhalation aerosol 2 puffs, Inhalation, 2 times a day, rinse mouth and throat after use, # 12 Gm, 1 Refills, Maintenance, 08/14/19 12:08:00 EST, Aerosol, [facility]/pharmacy #[id number], 165.1, cm, 08/04/19 8:55:00 EST, Height Start Date: 08/14/19 Status: OrderedFLUoxetine 20 mg oral capsule 60 mg, 3, capsule, By Mouth, Daily, # 270 capsule, Refills 3, Tot. Refills 3, Maintenance, 07/20/19 8:49:52 EST, Route to Pharmacy Electronically, [facility]/pharmacy #[id number], 165.1, cm, 07/20/19 8:25:18 EST, Height Start Date: 07/20/19 Status: OrderedKlonoPIN 0.5 mg oral tablet 1 tablet = 0.5 mg, By Mouth, 2 times a day, # 60 tablet, 0 Refills, Maintenance, 07/11/20 10:01:00 EST, Tablet, [facility]/pharmacy #[id number], 165.1, cm, 06/27/20 9:45:00 EST, Height, [...] Refills, Maintenance, 06/27/20 10:16:00 EST, ER Tablet, [facility]/pharmacy #[id number], Partial fill upon patient request, 165.1, [...] 1 Refills, Maintenance, 07/11/20 10:00:00 EST, Tablet, [facility]/pharmacy #[id number], 1 tablet By Mouth Daily, 165.1, [...] Septate uterus(Confirmed) Active 2008 no polyps or [id number] [employer] Social History Social History Type Response Smoking Status Never smoker entered on: 10/27/13 Sex
--- OUTSIDE RECORDS SUMMARY | 2022-05-06 01:06 | XMS_ITS | Continuity of Care Document ---
:1975 Author Organization [facility] Adult Address [address] [place] [address]- Care Team Providers Name Role Phone Sue MARTINEZ, Alejandro Amaya Primary Care Physician Encounter [facility] Date(s): 01/23/22 - 02/22/22 [facility] [address] [place] [address]- Allergies, Adverse Reactions, Alerts Substance Reaction Severity [...] Toxoid Vaccine (oldterm) 10/03/06 Given 1Admin Note: [employer] [facility]2Admin Note: [id number] Note: SANOFI PASTEUR Medications amLODIPine 5 mg oral tablet 5 mg, 1, tablet, By Mouth, Daily, # 90 tablet, Refills 1, Tot. Refills 1, Maintenance, 12/07/21 15:39:00 EDT, Route to Pharmacy Electronically, [facility]/pharmacy #[id number], Partial fill upon patient request if the prescription is for a schedule II opioid drug.... Start Date: 12/07/21 Status: OrderedASA/butalbital/caffeine 325 mg-50 mg-40 mg oral tablet 1 tablet, By Mouth, Every 4 hours, PRN for pain, 1 tablet every 4 hours PRN for headaches fax # [phone], # 30 tablet, 5 Refills, Maintenance, 12/16/17 11:20:08 EDT, Tablet Start Date: 12/16/17 Status: OrderedCPAP Master Dyer, 05/19/18 8:04:57 EDT, Compound Start Date: 05/19/18 Status: OrderedEpiPen 2-Maxi 0.3 mg injectable kit = 0.3 mg, Intramuscular, Once, # 1 each, 0 Refills, Soft Stop, 09/12/21 10:04:00 EST, [facility]/pharmacy #[id number], Partial fill upon patient request if the prescription is for a schedule II opioid drug., 165.1,cm, 03/21/21 7:14:00 EDT, Height, 125.8, kg, 06/06... Start Date: 09/12/21 Status: OrderedFlonase 50 mcg/inh nasal spray 1 sprays, Nares, Both, 2 times a day, in each nostril, # 48 mL, 1 Refills, Maintenance, 01/28/20 10:50:00 EDT, [place], [facility]/pharmacy #[id number], 1 sprays Nares, Both 2 times a day,Instr:in each nostril, 165.1, cm, 01/26/20 10:01:00 EDT, Height, 123, kg, 09/05... Start Date: 01/28/20 Status: OrderedFlovent HFA 110 mcg/inh inhalation aerosol 2 puffs, Inhalation, 2 times a day, rinse mouth and throat after use, # 12 Gm, 1 Refills, Maintenance, 02/10/21 8:24:00 EDT, Aerosol, [facility]/pharmacy #[id number], 165.1, cm, 02/10/21 8:00:00 EDT, Height, 125.8,kg, 06/27/20 9:45:00 EST, Dry Weight Start Date: 02/10/21 Status: OrderedFLUoxetine 20 mg oral capsule 60 mg, 3, capsule, By Mouth, Daily, # 270 capsule, Refills 3, Tot. Refills 3, Maintenance, 07/20/19 8:49:52 EST, Route to Pharmacy Electronically, [facility]/pharmacy #[id number], 165.1, cm, 07/20/19 8:25:18 [...] 90 tablet, 0 Refills, 11/07/21 10:38:00 EDT, [facility]/pharmacy #[id number], 90, 1 tablet By Mouth Daily, 165.1, cm, 11/06/21 15:50:00 EDT, Height, 125.8, kg, 06/27/20 9:45:00 EST, DryWeight Start Date: 11/07/21 Status: OrderedKlonoPIN 0.5 mg oral tablet 1 tablet = 0.5 mg, By Mouth, 2 times a day, # 60 tablet, 0 Refills, Maintenance, 07/11/20 10:01:00 EST, Tablet, [facility]/pharmacy #[id number], 165.1, cm, 06/27/20 9:45:00 EST, Height, 125.8, kg, 06/27/20 9:45:00 EST, Dry Weight Start Date: 07/11/20 Status: OrderedMedrol Dosepak 4 mg oral tablet 1 pack/packet, By Mouth, Daily, for 6 days, as directed on package labeling, # 21 tablet, 5 Refills,Acute 03/21/22 14:56:00 EDT, 02/13/22 14:56:00 EDT, Tablet, [facility]acy [id number], Partial fill upon patient request if the prescription is for a schedul... Start Date: 02/13/22 Stop Date: 03/21/22 Status: OrderedMirena 52 mg intrauteral device 1 [...] days, 165.1, cm,... Start Date: 01/22/22 Status: OrderedTylenol 325 mg oral capsule 2 [...] Severe obesity(Confirmed) Active 1c2008 no polyps or [id number] Andrzej Social History Social History Type Response Smoking Status Never smoker entered on: 10/27/13 Sex
--- OUTSIDE RECORDS SUMMARY | 2022-05-06 01:06 | XMS_ITS | Continuity of Care Document ---
:1975 Author Organization [facility] Adult Address [address] [place] [address]- Care Team Providers Name Role Phone Sue MARTINEZ, Alejandro Amaya Primary Care Physician [place] [facility] [place]21 [facility] [address] [place] [address]- Allergies, Adverse Reactions, Alerts Substance Reaction Severity [...] Toxoid Vaccine (oldterm) 10/03/06 Given 1Admin Note: [facility]Admin Note: [id number] Note: SANOFI PASTEUR Medications amLODIPine 5 mg oral tablet 5 mg, 1, tablet, By Mouth, Daily, # 90 tablet, Refills 1, Tot. Refills 1, Maintenance, 12/07/21 15:39:00 EDT, Route to Pharmacy Electronically, [facility]/pharmacy #[id number], Partial fill upon patient request if the prescription is for a schedule II opioid drug.... Start Date: 12/07/21 Status: OrderedASA/butalbital/caffeine 325 mg-50 mg-40 mg oral tablet 1 tablet, By Mouth, Every 4 hours, PRN for pain, 1 tablet every 4 hours PRN for headaches fax # [phone], # 30 tablet, 5 Refills, Maintenance, 12/16/17 11:20:08 EDT, Tablet Start Date: 12/16/17 Status: OrderedCPAP Draw String Knotter, 05/19/18 8:04:57 EDT, Compound Start Date: 05/19/18 Status: OrderedEpiPen 2-Maxi 0.3 mg injectable kit = 0.3 mg, Intramuscular, Once, # 1 each, 0 Refills, Soft Stop, 09/12/21 10:04:00 EST, [facility]/pharmacy #[id number], Partial fill upon patient request if the prescription is for a schedule II opioid drug., 165.1,cm, 03/21/21 7:14:00 EDT, Height, 125.8, kg, 06/06... Start Date: 09/12/21 Status: OrderedFlonase 50 mcg/inh nasal spray 1 sprays, Nares, Both, 2 times a day, in each nostril, # 48 mL, 1 Refills, Maintenance, 01/28/20 10:50:00 EDT, [place], [facility]/pharmacy #[id number], 1 sprays Nares, Both 2 times a day,Instr:in each nostril, 165.1, cm, 01/26/20 10:01:00 EDT, Height, 123, kg, 09/05... Start Date: 01/28/20 Status: OrderedFlovent HFA 110 mcg/inh inhalation aerosol 2 puffs, Inhalation, 2 times a day, rinse mouth and throat after use, # 12 Gm, 1 Refills, Maintenance, 02/10/21 8:24:00 EDT, Aerosol, [facility]/pharmacy #[id number], 165.1, cm, 02/10/21 8:00:00 EDT, Height, [...] 90 tablet, 0 Refills, 11/07/21 10:38:00 EDT, [facility]/pharmacy #[id number], 90, 1 tablet By Mouth Daily, 165.1, cm, 11/06/21 15:50:00 EDT, Height, 125.8, kg, 06/27/20 9:45:00 EST, DryWeight Start Date: 11/07/21 Status: OrderedKlonoPIN 0.5 mg oral tablet 1 tablet = 0.5 mg, By Mouth, 2 times a day, # 60 tablet, 0 Refills, Maintenance, 07/11/20 10:01:00 EST, Tablet, [facility]/pharmacy #[id number], 165.1, cm, 06/27/20 9:45:00 EST, Height, 125.8, kg, 06/27/20 9:45:00 EST, Dry Weight Start Date: 07/11/20 Status: OrderedMirena 52 mg intrauteral device 1 each = 52 mg, Once, 0 Refills, Maintenance, 07/25/16 15:52:04 Start Date: 07/25/16 Status: OrderedMyrbetriq 25 mg oral tablet, extended release 1 tablet = 25 mg, By Mouth, Daily, # 30 tablet, 5 Refills, Maintenance, 09/26/20 10:20:00 EST, [facility]/pharmacy #[id number], Partial fill upon patient request if the prescription is for a schedule II opioid drug., 165.1, cm, 09/16/20 14:04:00 EST, Height, 125.8... Start Date: 09/26/20 Status: OrderedTylenol 325 mg oral capsule 2 capsule = 650 mg, By Mouth, Every 4 hours, PRN as needed for pain, # 90 capsule, 0 Refills, Maintenance, 03/23/20 8:44:00 EDT, Capsule, [facility]/pharmacy #[id number], 165.1, cm, 03/23/20 7:03:00 EDT, Height, [...] Active Septate uterus(Confirmed) Active Severe obesity(Confirmed) Active 1colo 2008 no polyps or [id number] Andrzej Social History Social History Type Response Smoking Status Never smoker entered on: 10/27/13 Sex
--- OUTSIDE RECORDS SUMMARY | 2022-05-06 01:06 | XMS_ITS | Continuity of Care Document ---
:1975 Author Organization [facility] pt Address [address] [place] [address]- Care Team Providers Name Role Phone Sue MARTINEZ, Alejandro Amaya Primary Care Physician [place] [facility] [place] Date(s): 01/22/22 - 02/21/22 [facility] [address] [place] [address]- Attending Physician: Admtr, Ar8 Admitting Physician: Admtr, Ar8 Referring Physician: Admtr, Ar8 Allergies, Adverse Reactions, Alerts [...] Toxoid Vaccine (oldterm) 10/03/06 Given 1Admin Note: [employer] [facility] HospitalSekodw9Qdgib Note: [id number] Note: SANOFI PASTEUR Medications amLODIPine 5 mg oral tablet 5 mg, 1, tablet, By Mouth, Daily, # 90 tablet, Refills 1, Tot. Refills 1, Maintenance, 12/07/21 15:39:00 EDT, Route to Pharmacy Electronically, [facility]/pharmacy #[id number], Partial fill upon patient request if the prescription is for a schedule II opioid drug.... Start Date: 12/07/21 Status: OrderedASA/butalbital/caffeine 325 mg-50 mg-40 mg oral tablet 1 tablet, By Mouth, Every 4 hours, PRN for pain, 1 tablet every 4 hours PRN for headaches fax # [phone], # 30 tablet, 5 Refills, Maintenance, 12/16/17 11:20:08 EDT, Tablet Start Date: 12/16/17 Status: OrderedCPAP Township Supervisor, 05/19/18 8:04:57 EDT, Compound Start Date: 05/19/18 Status: OrderedEpiPen 2-Maxi 0.3 mg injectable kit = 0.3 mg, Intramuscular, Once, # 1 each, 0 Refills, Soft Stop, 09/12/21 10:04:00 EST, [facility]/pharmacy #[id number], Partial fill upon patient request if the prescription is for a schedule II opioid drug., 165.1,cm, 03/21/21 7:14:00 EDT, Height, 125.8, kg, 06/06... Start Date: 09/12/21 Status: OrderedFlonase 50 mcg/inh nasal spray 1 sprays, Nares, Both, 2 times a day, in each nostril, # 48 mL, 1 Refills, Maintenance, 01/28/20 10:50:00 EDT, [place], [facility]/pharmacy #[id number], 1 sprays Nares, Both 2 times a day,Instr:in each nostril, 165.1, cm, 01/26/20 10:01:00 EDT, Height, 123, kg, 09/05... Start Date: 01/28/20 Status: OrderedFlovent HFA 110 mcg/inh inhalation aerosol 2 puffs, Inhalation, 2 times a day, rinse mouth and throat after use, # 12 Gm, 1 Refills, Maintenance, 02/10/21 8:24:00 EDT, Aerosol, [facility]/pharmacy #[id number], 165.1, cm, 02/10/21 8:00:00 EDT, Height, 125.8,kg, 06/27/20 9:45:00 EST, Dry Weight Start Date: 02/10/21 Status: OrderedFLUoxetine 20 mg oral capsule 60 mg, 3, capsule, By Mouth, Daily, # 270 capsule, Refills 3, Tot. Refills 3, Maintenance, 07/20/19 8:49:52 EST, Route to Pharmacy Electronically, [facility]/pharmacy #[id number], 165.1, cm, 07/20/19 8:25:18 EST, [...] tablet, 0 Refills, 11/07/21 10:38:00 EDT, [facility]/pharmacy #[id number], 90, 1 tablet By Mouth Daily, 165.1, cm, 11/06/21 15:50:00 EDT, Height, 125.8, kg, 06/27/20 9:45:00 EST, DryWeight Start Date: 11/07/21 Status: OrderedKlonoPIN 0.5 mg oral tablet 1 tablet = 0.5 mg, By Mouth, 2 times a day, # 60 tablet, 0 Refills, Maintenance, 07/11/20 10:01:00 EST, Tablet, [facility]/pharmacy #[id number], 165.1, cm, 06/27/20 9:45:00 EST, [...] obesity(Confirmed) Active 1colo 2008 no polyps or [id number] [facility] Social History Social History Type Response Smoking Status Never smoker entered on: 10/27/13 Sex
--- OUTSIDE RECORDS SUMMARY | 2022-05-06 01:06 | XMS_ITS | Continuity of Care Document ---
:1975 Author Organization [facility] Adult Address [address] [place] [address]- Care Team Providers Name Role Phone Sue MARTINEZ, Alejandro Amaya Primary Care Physician [place] [facility] [place]22[place]22 - 02/21/22 [facility] Adult [address] [place] [address]- Allergies, Adverse Reactions, Alerts Substance Reaction Severity [...] Toxoid Vaccine (oldterm) 10/03/06 Given 1Admin Note: [employer] [facility]2Admin Note: [id number] Note: SANOFI PASTEUR Medications amLODIPine 5 mg oral tablet 5 mg, 1, tablet, By Mouth, Daily, # 90 tablet, Refills 1, Tot. Refills 1, Maintenance, 12/07/21 15:39:00 EDT, Route to Pharmacy Electronically, [facility]/pharmacy #[id number], Partial fill upon patient request if the prescription is for a schedule II opioid drug.... Start Date: 12/07/21 Status: OrderedASA/butalbital/caffeine 325 mg-50 mg-40 mg oral tablet 1 tablet, By Mouth, Every 4 hours, PRN for pain, 1 tablet every 4 hours PRN for headaches fax # [phone], # 30 tablet, 5 Refills, Maintenance, 12/16/17 11:20:08 EDT, Tablet Start Date: 12/16/17 Status: OrderedCPAP Refund Specialist, 05/19/18 8:04:57 EDT, Compound Start Date: 05/19/18 Status: OrderedEpiPen 2-Maxi 0.3 mg injectable kit = 0.3 mg, Intramuscular, Once, # 1 each, 0 Refills, Soft Stop, 09/12/21 10:04:00 EST, [facility]/pharmacy #[id number], Partial fill upon patient request if the prescription is for a schedule II opioid drug., 165.1,cm, 03/21/21 7:14:00 EDT, Height, 125.8, kg, 06/06... Start Date: 09/12/21 Status: OrderedFlonase 50 mcg/inh nasal spray 1 sprays, Nares, Both, 2 times a day, in each nostril, # 48 mL, 1 Refills, Maintenance, 01/28/20 10:50:00 EDT, [place], [facility]/pharmacy #[id number], 1 sprays Nares, Both 2 times a day,Instr:in each nostril, 165.1, cm, 01/26/20 10:01:00 EDT, Height, 123, kg, 09/05... Start Date: 01/28/20 Status: OrderedFlovent HFA 110 mcg/inh inhalation aerosol 2 puffs, Inhalation, 2 times a day, rinse mouth and throat after use, # 12 Gm, 1 Refills, Maintenance, 02/10/21 8:24:00 EDT, Aerosol, [facility]/pharmacy #[id number], 165.1, cm, 02/10/21 8:00:00 EDT, Height, 125.8,kg, 06/27/20 9:45:00 EST, Dry Weight Start Date: 02/10/21 Status: OrderedFLUoxetine 20 mg oral capsule 60 mg, 3, capsule, By Mouth, Daily, # 270 capsule, Refills 3, Tot. Refills 3, Maintenance, 07/20/19 8:49:52 EST, Route to Pharmacy Electronically, [facility]/pharmacy #[id number], 165.1, cm, 07/20/19 8:25:18 [...] tablet, 0 Refills, 11/07/21 10:38:00 EDT, [facility]/pharmacy #[id number], 90, 1 tablet By Mouth Daily, 165.1, cm, 11/06/21 15:50:00 EDT, Height, 125.8, kg, 06/27/20 9:45:00 EST, DryWeight Start Date: 11/07/21 Status: OrderedKlonoPIN 0.5 mg oral tablet 1 tablet = 0.5 mg, By Mouth, 2 times a day, # 60 tablet, 0 Refills, Maintenance, 07/11/20 10:01:00 EST, Tablet, [facility]/pharmacy #[id number], 165.1, cm, 06/27/20 9:45:00 [...] Severe obesity(Confirmed) Active 1c2008 no polyps or [id number] Andrzej Social History Social History Type Response Smoking Status Never smoker entered on: 10/27/13 Sex
--- OUTSIDE RECORDS SUMMARY | 2022-05-06 01:06 | XMS_ITS | Continuity of Care Document ---
:1975 Author Organization [facility] Adult Address [address] [place] [address]- Care Team Providers Name Role Phone Alejandro Rogers MD Primary Care Physician [place] [facility] [place] Date(s): 06/07/20 - 06/14/20 [facility] Adult [address] [place] [address]- Attending Physician: Alejandro Rogers MD Allergies, Adverse [...] Toxoid Vaccine (oldterm) 10/03/06 Given 1Admin Note: [employer] [facility] HospitalCbsoxi1Kuedk Note: [id number] Note: SANOFI PASTEUR Medications ASA/butalbital/caffeine 325 mg-50 mg-40 mg oral tablet 1 tablet, By Mouth, Every 4 hours, PRN for pain, 1 tablet every 4 hours PRN for headaches fax # [phone], # 30 tablet, 5 Refills, Maintenance, 12/16/17 11:20:08 EDT, Tablet Start Date: 12/16/17 Status: OrderedCPAP 4Th Grade Teacher, 05/19/18 8:04:57 EDT, Compound Start Date: 05/19/18 Status: Orderedcyclobenzaprine 10 mg oral tablet 10 mg, 1, tablet, By Mouth, Daily at bedtime, PRN, for 14 days, # 14 tablet, Refills 0, Tot. Refills0, Acute 06/27/20 15:54:00 EST, for spasm, 06/13/20 15:54:00 EST, Route to Pharmacy Electronically, [facility]/pharmacy #[id number], 165.1, cm, 06/13/20 15:14:00 E... Start Date: 06/13/20 Stop Date: 06/27/20 Status: OrderedFlonase 50 mcg/inh nasal spray 1 sprays, Nares, Both, 2 times a day, in each nostril, # 48 mL, 1 Refills, Maintenance, 01/28/20 10:50:00 EDT, [place], [facility]/pharmacy #[id number], 1 sprays Nares, Both 2 times a day,Instr:in each nostril, 165.1, cm, 01/26/20 10:01:00 EDT, Height, 123, kg, 09/05... Start Date: 01/28/20 Status: OrderedFlovent HFA 110 mcg/inh inhalation aerosol 2 puffs, Inhalation, 2 times a day, rinse mouth and throat after use, # 12 Gm, 1 Refills, Maintenance, 08/14/19 12:08:00 EST, [place], [facility]/pharmacy #[id number], 165.1, cm, 08/04/19 8:55:00 EST, Height Start Date: 08/14/19 Status: OrderedFLUoxetine 20 mg oral capsule 60 mg, 3, capsule, By Mouth, Daily, # 270 capsule, Refills 3, Tot. Refills 3, Maintenance, 07/20/19 8:49:52 EST, Route to Pharmacy Electronically, [facility]/pharmacy #[id number], 165.1, cm, 07/20/19 8:25:18 EST, Height Start Date: 07/20/19 Status: OrderedKlonoPIN 0.5 mg oral tablet 1 tablet = 0.5 mg, By Mouth, 2 times a day, # 60 tablet, 5 Refills, Maintenance, 06/09/19 16:13:49 EST, Tablet Start Date: 06/09/19 Status: OrderedMedrol Dosepak 4 mg oral tablet 1 pack/packet, By Mouth, Daily, for 6 days, as directed on package labeling, # 21 tablet, 0 Refills,Acute 06/19/20 15:51:00 EST, 06/13/20 15:51:00 EST, Tablet, [facility]/pharmacy #[id number], 165.1, cm, 06/13/20 15:14:00 EST, Height, 125.8, kg, 04/05/20 15:47:00... Start Date: 06/13/20 Stop Date: 06/19/20 Status: OrderedMirena 52 mg intrauteral device 1 [...] bowel Active syndrome(Confirmed) Lipoma(Confirmed) Active Migraine(Confirmed) Active Abnormal MRI, lumbar spine(Confirmed)2 Active TRICIA (obstructive sleep Active apnea)(Confirmed) Polycystic ovary syndrome(Confirmed) Active Memory loss, short term(Confirmed) Active Rhinitis(Confirmed) Active Septate uterus(Confirmed) Active 1c2008 no polyps or [id number] [facility] Vital Signs Most recent to oldest [Reference Range]: 1 Height 165.10 cm (06/07/20 4:20 PM) Weight 129.4 kg (06/07/20 4:20 PM) Oxygen Saturation [94-100 %] 99 % (06/07/20 4:20 PM) Pulse Rate [55-90 bpm] 98 bpm *H* (06/07/20 4:20 PM) Body Mass Index [18.5-24.99] 47.47 *>HHI* (06/07/20 4:20 PM) Blood Pressure [90-138/55-84 mm Hg] 134/86 mm Hg (06/07/20 4:20 PM) Mode of Delivery (Oxygen) Room air (06/07/20 4:20 PM) Blood pressure sites Arm, left (06/07/20 4:20 PM) Weight Obtained Via Standing scale (06/07/20 4:20 PM) Social History Social History Type Response Smoking Status Never smoker entered on: 10/27/13 Sex
--- OUTSIDE RECORDS SUMMARY | 2022-05-06 01:06 | XMS_ITS | Continuity of Care Document ---
:1975 Author Organization [facility] Adult Address [address] [place] [address]- Care Team Providers Name Role Phone Sue MARTINEZ, Alejandro Amaya Primary Care Physician Encounter [facility] Date(s): 08/04/19 - 08/11/19 [facility] Adult [address] [place] [address]- [facility] Attending Physician: Maude Frausto NP Allergies, Adverse [...] Toxoid Vaccine (oldterm) 10/03/06 Given 1Admin Note: [employer] [facility] MichiganMtevyv5Gsmeq Note: [id number] Note: SANOFI PASTEUR Medications ASA/butalbital/caffeine 325 mg-50 mg-40 mg oral tablet 1 tablet, By Mouth, Every 4 hours, PRN for pain, 1 tablet every 4 hours PRN for headaches fax # [phone], # 30 tablet, 5 Refills, Maintenance, 12/16/17 11:20:08 EDT, Tablet Start Date: 12/16/17 Status: OrderedAugmentin 875 mg-125 mg oral tablet 1 tablet, By Mouth, Every 12 hours, for 10 days, # 20 tablet, 0 Refills, Acute 08/14/19 9:20:00 EST,08/04/19 9:20:00 EST, Tablet, [facility]/pharmacy #[id number], 165.1, cm, 08/04/19 8:55:00 EST, Height Start Date: 08/04/19 Stop Date: 08/14/19 Status: OrderedCPAP Kiln Head House Operator, 05/19/18 8:04:57 EDT, Compound Start Date: 05/19/18 Status: OrderedDiflucan 150 mg oral tablet 1 tablet = 150 mg, By Mouth, Once, # 1 tablet, 0 Refills, Soft Stop, 08/04/19 9:21:00 EST, Tablet, [facility]/pharmacy #[id number], 165.1, cm, 08/04/19 8:55:00 EST, Height Start Date: 08/04/19 Status: OrderedFlonase 50 mcg/inh nasal spray 1 sprays, Nares, Both, 2 times a day, in each nostril, # 16 Gm, 6 Refills, Maintenance, 08/04/19 14:13:00 EST, [place], [facility]acy [id number], 1 sprays Nares, Both 2 [...] tablet, 0 Refills, Maintenance, 08/04/19 9:20:00 EST, [facility]/pharmacy #[id number], 165.1, cm, 08/04/19 8:55:00 EST, [...] 3 Refills, Maintenance, 07/20/19 8:49:52 EST, Tablet, [facility]/pharmacy #[id number], 1 tablet By Mouth Daily, [...] oldest [Reference Range]: 1 Height 165.10 cm (08/04/19 8:55 AM) Weight 124.0 kg (08/04/19 8:55 AM) Oxygen Saturation [94-100 %] 98 % (08/04/19 8:55 AM) Pulse Rate [55-90 bpm] 82 bpm (08/04/19 8:55 AM) Body Mass Index [18.5-24.99] 45.49 *>HHI* (08/04/19 8:55 AM) Blood Pressure [90-138/55-84 mm Hg] 140/82 mm Hg *H* (08/04/19 8:55 AM) Temperature [96.8-100.4 DegF] 98.6 DegF (08/04/19 8:55 AM) Blood pressure sites Arm, left (08/04/19 8:55 AM) Temperature Route Oral (08/04/19 8:55 AM) Social History Social History Type Response Smoking Status Never smoker entered on: 10/27/13 Sex
--- OUTSIDE RECORDS SUMMARY | 2022-05-06 01:06 | XMS_ITS | Continuity of Care Document ---
:1975 Author Organization [facility] Adult Address [address] [place] [address]- Care Team Providers Name Role Phone Sue MARTINEZ, Alejandro Amaya Primary Care Physician Encounter [facility] Date(s): 06/23/20 - 07/23/20 [facility] Adult [address] [place] [address]- Allergies, Adverse Reactions, Alerts Substance Reaction Severity [...] Toxoid Vaccine (oldterm) 10/03/06 Given 1Admin Note: [id number] Note: [id number] Note: SANOFI PASTEUR Medications ASA/butalbital/caffeine 325 mg-50 mg-40 mg oral tablet 1 tablet, By Mouth, Every 4 hours, PRN for pain, 1 tablet every 4 hours PRN for headaches fax # [phone], # 30 tablet, 5 Refills, Maintenance, 12/16/17 11:20:08 EDT, Tablet Start Date: 12/16/17 Status: OrderedCPAP Long Winder Tender, 05/19/18 8:04:57 EDT, Compound Start Date: 05/19/18 Status: OrderedFlonase 50 mcg/inh nasal spray 1 sprays, Nares, Both, 2 times a day, in each nostril, # 48 mL, 1 Refills, Maintenance, 01/28/20 10:50:00 EDT, [place], [facility]/pharmacy #[id number], 1 sprays Nares, Both 2 times a day,Instr:in each nostril, 165.1, cm, 01/26/20 10:01:00 EDT, Height, 123, kg, 09/05... Start Date: 01/28/20 Status: OrderedFlovent HFA 110 mcg/inh inhalation aerosol 2 puffs, Inhalation, 2 times a day, rinse mouth and throat after use, # 12 Gm, 1 Refills, Maintenance, 08/14/19 12:08:00 EST, Aerosol, [facility]/pharmacy #[id number], 165.1, cm, 08/04/19 8:55:00 EST, Height Start Date: 08/14/19 Status: OrderedFLUoxetine 20 mg oral capsule 60 mg, 3, capsule, By Mouth, Daily, # 270 capsule, Refills 3, Tot. Refills 3, Maintenance, 07/20/19 8:49:52 EST, Route to Pharmacy Electronically, [facility]/pharmacy #[id number], 165.1, cm, 07/20/19 8:25:18 EST, Height Start Date: 07/20/19 Status: OrderedKlonoPIN 0.5 mg oral tablet 1 tablet = 0.5 mg, By Mouth, 2 times a day, # 60 tablet, 0 Refills, Maintenance, 07/11/20 10:01:00 EST, Tablet, [facility]/pharmacy #[id number], 165.1, cm, 06/27/20 9:45:00 EST, [...] Septate uterus(Confirmed) Active 1c2008 no polyps or [id number] [facility] Social History Social History Type Response Smoking Status Never smoker entered on: 10/27/13 Sex
--- OUTSIDE RECORDS SUMMARY | 2022-05-06 01:06 | XMS_ITS | Continuity of Care Document ---
:1975 Author Organization [facility] Adult Address [address] [place] [address]- Care Team Providers Name Role Phone Alejandro Rogers MD Primary Care Physician Encounter [facility] Date(s): 07/18/20 - 07/25/20 [facility] [address] [place] [address]- Attending Physician: Alejandro Rogers MD Allergies, Adverse [...] Toxoid Vaccine (oldterm) 10/03/06 Given 1Admin Note: [employer] [facility]2Admin Note: [id number] Note: SANOFI PASTEUR Medications ASA/butalbital/caffeine 325 mg-50 mg-40 mg oral tablet 1 tablet, By Mouth, Every 4 hours, PRN for pain, 1 tablet every 4 hours PRN for headaches fax # [phone], # 30 tablet, 5 Refills, Maintenance, 12/16/17 11:20:08 EDT, Tablet Start Date: 12/16/17 Status: OrderedCPAP Generator Technician, 05/19/18 8:04:57 EDT, Compound Start Date: 05/19/18 Status: OrderedFlonase 50 mcg/inh nasal spray 1 sprays, Nares, Both, 2 times a day, in each nostril, # 48 mL, 1 Refills, Maintenance, 01/28/20 10:50:00 EDT, [place], [facility]/pharmacy #[id number], 1 sprays Nares, Both 2 times a day,Instr:in each nostril, 165.1, cm, 01/26/20 10:01:00 EDT, Height, 123, kg, 09/05... Start Date: 01/28/20 Status: OrderedFlovent HFA 110 mcg/inh inhalation aerosol 2 puffs, Inhalation, 2 times a day, rinse mouth and throat after use, # 12 Gm, 1 Refills, Maintenance, 08/14/19 12:08:00 EST, Aerosol, [facility]/pharmacy #[id number], 165.1, cm, 08/04/19 8:55:00 EST, Height Start Date: 08/14/19 Status: OrderedFLUoxetine 20 mg oral capsule 60 mg, 3, capsule, By Mouth, Daily, # 270 capsule, Refills 3, Tot. Refills 3, Maintenance, 07/20/19 8:49:52 EST, Route to Pharmacy Electronically, [facility]/pharmacy #[id number], 165.1, cm, 07/20/19 8:25:18 EST, Height Start Date: 07/20/19 Status: OrderedKlonoPIN 0.5 mg oral tablet 1 tablet = 0.5 mg, By Mouth, 2 times a day, # 60 tablet, 0 Refills, Maintenance, 07/11/20 10:01:00 EST, Tablet, [facility]/pharmacy #[id number], 165.1, cm, 06/27/20 9:45:00 EST, [...] uterus(Confirmed) Active 1colo 2008 no polyps or [id number] [facility] Vital Signs Most recent to oldest [Reference Range]: 1 Height 165.10 cm (07/18/20 12:38 PM) Weight 126.8 kg (07/18/20 12:38 PM) Oxygen Saturation [94-100 %] 98 % (07/18/20 12:38 PM) Pulse Rate [55-90 bpm] 93 bpm *H* (07/18/20 12:38 PM) Body Mass Index [18.5-24.99] 46.52 *>HHI* (07/18/20 12:38 PM) Blood Pressure [90-138/55-84 mm Hg] 134/78 mm Hg (07/18/20 12:38 PM) Blood pressure sites Arm, left (07/18/20 12:38 PM) Social History Social History Type Response Smoking Status Never smoker entered on: 10/27/13 Sex
--- OUTSIDE RECORDS SUMMARY | 2022-05-06 01:06 | XMS_ITS | Continuity of Care Document ---
:1975 Author Organization [facility] Room Cho[facility] Address [address] [place] [id number]- Care Team Providers Name Role Phone Alejandro Rogers MD Primary Care Physician Encounter [facility] [place] Date(s): 07/27/19 - 09/30/19 [facility] [address] [address]- Attending Physician: Not on Staff, Attending MD [...] Toxoid Vaccine (oldterm) 10/03/06 Given 1Admin Note: [employer] [id number] Note: [id number] Note: SANOFI PASTEUR Medications ASA/butalbital/caffeine 325 mg-50 mg-40 mg oral tablet 1 tablet, By Mouth, Every 4 hours, PRN for pain, 1 tablet every 4 hours PRN for headaches fax # [phone], # 30 tablet, 5 Refills, Maintenance, 12/16/17 11:20:08 EDT, Tablet Start Date: 12/16/17 Status: OrderedCPAP Automobile Radio Repairer, 05/19/18 8:04:57 EDT, Compound Start Date: 05/19/18 Status: OrderedDiflucan 150 mg oral tablet 1 tablet = 150 mg, By Mouth, Once, # 1 tablet, 0 Refills, Soft Stop, 08/04/19 9:21:00 EST, Tablet, [facility]/pharmacy #[id number], 165.1, cm, 08/04/19 8:55:00 EST, Height Start Date: 08/04/19 Status: OrderedFlonase 50 mcg/inh nasal spray 1 sprays, Nares, Both, 2 times a day, in each nostril, # 16 Gm, 6 Refills, Maintenance, 08/04/19 14:13:00 EST, [place], [facility]/pharmacy #[id number], 1 sprays [...] tablet, 0 Refills, Maintenance, 08/04/19 9:20:00 EST, [facility]/pharmacy #[id number], 165.1, cm, [...]
--- OUTSIDE RECORDS SUMMARY | 2022-05-06 01:06 | XMS_ITS | Continuity of Care Document ---
:1975 Author Organization [facility] Address [address] [place] [address]- Care Team Providers Name Role Phone Alejandro Rogers MD Primary Care Physician [place] [facility] [place] 06/01/21 [facility] [address] [place] [address]- Encounter Diagnosis Viral illness (Discharge Diagnosis) - 05/25/21 Attending Physician: Not on Staff, Attending MD [...] Toxoid Vaccine (oldterm) 10/03/06 Given 1Admin Note: [facility]2Admin Note: [id number] Note: SANOFI PASTEUR Medications ASA/butalbital/caffeine 325 mg-50 mg-40 mg oral tablet 1 tablet, By Mouth, Every 4 hours, PRN for pain, 1 tablet every 4 hours PRN for headaches fax # [phone], # 30 tablet, 5 Refills, Maintenance, 12/16/17 11:20:08 EDT, Tablet Start Date: 12/16/17 Status: OrderedCPAP Centrifuge Separator Operator, 05/19/18 8:04:57 EDT, Compound Start Date: 05/19/18 Status: OrderedFlonase 50 mcg/inh nasal spray 1 sprays, Nares, Both, 2 times a day, in each nostril, # 48 mL, 1 Refills, Maintenance, 01/28/20 10:50:00 EDT, [place], [facility]/pharmacy #[id number], 1 sprays Nares, [...] Mouth, Daily, # 90 tablet, 1 Refills, [id number], 90, TAKE 1 TABLET BY MOUTH EVERYDAY, 165.1, cm, 03/21/21 7:14:00 EDT, Height, 125.8, kg, 06/27/20 9:45:00 EST, Dry Weight Start Date: 04/25/21 Status: OrderedKlonoPIN 0.5 mg oral tablet 1 tablet = 0.5 mg, By Mouth, 2 times a day, # 60 tablet, 0 Refills, Maintenance, 07/11/20 10:01:00 EST, Tablet, [facility]/pharmacy #[id number], 165.1, cm, 06/27/20 9:45:00 [...] tablet, 5 Refills, Maintenance, 09/26/20 10:20:00 EST, [facility]/pharmacy #[id number], Partial fill [...] Septate uterus(Confirmed) Active 2008 no polyps or [id number] Andrzej Diagnosis Diagnosis Type Effective Dates Health Status Clinical In formant Service Viral illness Discharge 05/25/21 Diagnosis Social History Social History Type Response Smoking Status Never smoker entered on: 10/27/13 Sex
--- OUTSIDE RECORDS SUMMARY | 2022-05-06 01:06 | XMS_ITS | Continuity of Care Document ---
:1975 Author Organization [facility] Address [address] [place] [address], [address] [place] [address]- Care Team Providers Name Role Phone Sue MARTINEZ, Alejandro Amaya Primary Care Physician [place] [facility] [place] - 10/26/20 [facility] [address] [place] [address], [address] [place] [id number] Attending Physician: Lorna Jay Admitting Physician: [...] Toxoid Vaccine (oldterm) 10/03/06 Given 1Admin Note: [facility]Nszdak8Yhgdl Note: [id number] Note: SANOFI PASTEUR Medications ASA/butalbital/caffeine 325 mg-50 mg-40 mg oral tablet 1 tablet, By Mouth, Every 4 hours, PRN for pain, 1 tablet every 4 hours PRN for headaches fax # [phone], # 30 tablet, 5 Refills, Maintenance, 12/16/17 11:20:08 EDT, Tablet Start Date: 12/16/17 Status: OrderedCPAP Computer Hardware Technician, 05/19/18 8:04:57 EDT, Compound Start Date: 05/19/18 Status: Orderedcyclobenzaprine 10 mg oral tablet 10 mg, By Mouth, Every 8 hours, PRN, Muscle Spasms, # 21 tablet, Refills 0, Tot. Refills 0, Maintenance, Pain , Moderate, 09/16/20 14:52:00 EST, Route to Pharmacy Electronically, [facility]/pharmacy #[id number], Partial fill upon patient request if the prescriptio... Start Date: 09/16/20 Status: OrderedFlonase 50 mcg/inh nasal spray 1 sprays, Nares, Both, 2 times a day, in each nostril, # 48 mL, 1 Refills, Maintenance, 01/28/20 10:50:00 EDT, [place], [facility]/pharmacy #[id number], 1 sprays Nares, Both 2 times a day,Instr:in each nostril, 165.1, cm, 01/26/20 10:01:00 EDT, Height, 123, kg, 09/05... Start Date: 01/28/20 Status: OrderedFlovent HFA 110 mcg/inh inhalation aerosol 2 puffs, Inhalation, 2 times a day, rinse mouth and throat after use, # 12 Gm, 1 Refills, Maintenance, 08/14/19 12:08:00 EST, Aeros[place], [facility]/pharmacy #[id number], 165.1, cm, 08/04/19 8:55:00 EST, Height Start Date: 08/14/19 Status: OrderedFLUoxetine 20 mg oral capsule 60 mg, 3, capsule, By Mouth, Daily, # 270 capsule, Refills 3, Tot. Refills 3, Maintenance, 07/20/19 8:49:52 EST, Route to Pharmacy Electronically, [facility]/pharmacy #[id number], 165.1, cm, 07/20/19 8:25:18 EST, [...] 0 Refills, Maintenance, 07/11/20 10:01:00 EST, Tablet, [facility]/pharmacy #[id number], 165.1, cm, 06/27/20 9:45:00 EST, Height, [...] 1 Refills, Maintenance, 07/11/20 10:00:00 EST, Tablet, [facility]/pharmacy #[id number], 1 tablet By Mouth Daily, [...] Septate uterus(Confirmed) Active 2008 no polyps or [id number] [facility] Social History Social History Type Response Smoking Status Never smoker entered on: 10/27/13 Sex
--- OUTSIDE RECORDS SUMMARY | 2022-05-06 01:06 | XMS_ITS | Continuity of Care Document ---
:1975 Author Organization [facility] Address [address] [place] [address]- Care Team Providers Name Role Phone Sue MARTINEZ, Alejandro Amaya Primary Care Physician [place] [facility] [place] [facility] [address] [place] [address]- Attending Physician: Admtr, Ar8 Allergies, Adverse Reactions, [...] Toxoid Vaccine (oldterm) 10/03/06 Given 1Admin Note: [employer] [facility]2Admin Note: [id number] Note: SANOFI PASTEUR Medications ASA/butalbital/caffeine 325 mg-50 mg-40 mg oral tablet 1 tablet, By Mouth, Every 4 hours, PRN for pain, 1 tablet every 4 hours PRN for headaches fax # [phone], # 30 tablet, 5 Refills, Maintenance, 12/16/17 11:20:08 EDT, Tablet Start Date: 12/16/17 Status: OrderedCPAP Counseling Aide, 05/19/18 8:04:57 EDT, Compound Start Date: 05/19/18 [...] mL, 1 Refills, Maintenance, 01/28/20 10:50:00 EDT, [place], [id number], 1 sprays Nares, Both 2 [...] Mouth, Daily, # 90 tablet, 1 Refills, [facility]ORE [facility], 90, TAKE 1 TABLET BY MOUTH EVERYDAY, 165.1, cm, 03/21/21 7:14:00 EDT, Height, 125.8, kg, 06/27/20 9:45:00 EST, Dry Weight Start Date: 04/25/21 Status: OrderedKlonoPIN 0.5 mg oral tablet 1 tablet = 0.5 mg, By Mouth, 2 times a day, # 60 tablet, 0 Refills, Maintenance, 07/11/20 10:01:00 EST, Tablet, [facility]/pharmacy #[id number], 165.1, cm, 06/27/20 9:45:00 EST, Height, 125.8, kg, 06/27/20 9:45:00 EST, Dry Weight Start Date: 07/11/20 Status: OrderedMirena 52 mg intrauteral device 1 each = 52 mg, Once, 0 Refills, Maintenance, 07/25/16 15:52:04 Start Date: 07/25/16 Status: OrderedMyrbetriq 25 mg oral tablet, extended release 1 tablet = 25 mg, By Mouth, Daily, # 30 tablet, 5 Refills, Maintenance, 09/26/20 10:20:00 EST, [facility]/pharmacy #[id number], Partial fill upon patient request [...] Septate uterus(Confirmed) Active 2008 no polyps or [id number] Andrzej Social History Social History Type Response Smoking Status Never smoker entered on: 10/27/13 Sex
--- OUTSIDE RECORDS SUMMARY | 2022-05-06 01:06 | XMS_ITS | Continuity of Care Document ---
:1975 Author Organization [facility] Address [address] [place] [address]- Care Team Providers Name Role Phone Sue MARTINEZ, Alejandro Amaya Primary Care Physician [place] [facility] [place]21 [facility] [address] [place] [address]- Allergies, Adverse Reactions, Alerts Substance Reaction Severity [...] Toxoid Vaccine (oldterm) 10/03/06 Given 1Admin Note: [employer]2Admin Note: [id number] Note: SANOFI PASTEUR Medications ASA/butalbital/caffeine 325 mg-50 mg-40 mg oral tablet 1 tablet, By Mouth, Every 4 hours, PRN for pain, 1 tablet every 4 hours PRN for headaches fax # [phone], # 30 tablet, 5 Refills, Maintenance, 12/16/17 11:20:08 EDT, Tablet Start Date: 12/16/17 Status: OrderedCPAP Clerk Of Scales, 05/19/18 8:04:57 EDT, Compound Start Date: 05/19/18 Status: OrderedFlonase 50 mcg/inh nasal spray 1 sprays, Nares, Both, 2 times a day, in each nostril, # 48 mL, 1 Refills, Maintenance, 01/28/20 10:50:00 EDT, [place], [facility]/pharmacy #[id number], 1 sprays Nares, Both 2 times a day,Instr:in each nostril, 165.1, cm, 01/26/20 10:01:00 EDT, Height, 123, kg, 09/05... Start Date: 01/28/20 Status: OrderedFlovent HFA 110 mcg/inh inhalation aerosol 2 puffs, Inhalation, 2 times a day, rinse mouth and throat after use, # 12 Gm, 1 Refills, Maintenance, 02/10/21 8:24:00 EDT, A[place], [facility]/pharmacy #[id number], 165.1, cm, 02/10/21 8:00:00 EDT, Height, 125.8,kg, 06/27/20 9:45:00 EST, Dry Weight Start Date: 02/10/21 Status: OrderedFLUoxetine 20 mg oral capsule 60 mg, 3, capsule, By Mouth, Daily, # 270 capsule, Refills 3, Tot. Refills 3, Maintenance, 07/20/19 8:49:52 EST, Route to Pharmacy Electronically, [facility]/pharmacy #[id number], 165.1, cm, 07/20/19 8:25:18 [...] Refills, Maintenance, 07/11/20 10:01:00 EST, Tablet, [facility]/pharmacy #[id number], 165.1, cm, 06/27/20 9:45:00 [...] Refills, Maintenance, 03/23/20 8:44:00 EDT, Caps[place], [facility]/pharmacy #[id number], 165.1, cm, 03/23/20 7:03:00 [...] Septate uterus(Confirmed) Active 2008 no polyps or [id number] Andrzej Social History Social History Type Response Smoking Status Never smoker entered on: 10/27/13 Sex
--- OUTSIDE RECORDS SUMMARY | 2022-05-06 01:06 | XMS_ITS | Continuity of Care Document ---
:1975 Author Organization [facility] Address [address] [place] [address]- Care Team Providers Name Role Phone Sue MARTINEZ, Alejandro Amaya Primary Care Physician Encounter [facility] Date(s): 06/13/20 - 07/13/20 [facility] [address] [place] [address]- Allergies, Adverse Reactions, Alerts Substance Reaction Severity [...] Toxoid Vaccine (oldterm) 10/03/06 Given 1Admin Note: [facility] [facility] AlmaUrnyky7Hgfis Note: [id number] Note: SANOFI PASTEUR Medications ASA/butalbital/caffeine 325 mg-50 mg-40 mg oral tablet 1 tablet, By Mouth, Every 4 hours, PRN for pain, 1 tablet every 4 hours PRN for headaches fax # [phone], # 30 tablet, 5 Refills, Maintenance, 05/14/18 11:20:08 EDT, Tablet Start Date: 12/16/17 Status: OrderedCPAP Certified Ophthalmic Technician, 05/19/18 8:04:57 EDT, Compound Start Date: 05/19/18 Status: OrderedFlonase 50 mcg/inh nasal spray 1 sprays, Nares, Both, 2 times a day, in each nostril, # 48 mL, 1 Refills, Maintenance, 01/28/20 10:50:00 EDT, [place], [facility]/pharmacy #[id number], 1 sprays Nares, Both 2 times a day,Instr:in each nostril, 165.1, cm, 01/26/20 10:01:00 EDT, Height, 123, kg, 09/05... Start Date: 01/28/20 Status: OrderedFlovent HFA 110 mcg/inh inhalation aerosol 2 puffs, Inhalation, 2 times a day, rinse mouth and throat after use, # 12 Gm, 1 Refills, Maintenance, 08/14/19 12:08:00 EST, Aerosol, [facility]/pharmacy #[id number], 165.1, cm, 08/04/19 8:55:00 EST, Height Start Date: 08/14/19 Status: OrderedFLUoxetine 20 mg oral capsule 60 mg, 3, capsule, By Mouth, Daily, # 270 capsule, Refills 3, Tot. Refills 3, Maintenance, 07/20/19 8:49:52 EST, Route to Pharmacy Electronically, [facility]/pharmacy #[id number], 165.1, cm, 07/20/19 8:25:18 EST, Height Start Date: 07/20/19 Status: OrderedKlonoPIN 0.5 mg oral tablet 1 tablet = 0.5 mg, By Mouth, 2 times a day, # 60 tablet, 0 Refills, Maintenance, 07/11/20 10:01:00 EST, Tablet, [facility]/pharmacy #[id number], 165.1, cm, 06/27/20 9:45:00 EST, Height, 125.8, kg, 06/27/20 9:45:00 EST, Dry Weight Start Date: 07/11/20 Status: OrderedMirena 52 mg intrauteral device 1 each = 52 mg, Once, 0 Refills, Maintenance, 12/21/16 15:52:04 Start Date: 07/25/16 Status: Orderedoxybutynin 10 [...] uterus(Confirmed) Active 1colo 2008 no polyps or [id number] [facility] Social History Social History Type Response Smoking Status Never smoker entered on: 10/27/13 Sex
--- OUTSIDE RECORDS SUMMARY | 2022-05-06 01:06 | XMS_ITS | Continuity of Care Document ---
:1975 Author Organization [facility] Address [address] [place] [address]- Care Team Providers Name Role Phone Sue MARTINEZ, Alejandro Amaya Primary Care Physician Encounter [facility] Date(s): 10/11/20 - 11/10/20 [facility] [address] [place] [address]- Attending Physician: Admtr, Ar8 Allergies, Adverse Reactions, [...] Toxoid Vaccine (oldterm) 10/03/06 Given 1Admin Note: [facility] HospitalComcgb6Zveya Note: [id number] Note: SANOFI PASTEUR Medications ASA/butalbital/caffeine 325 mg-50 mg-40 mg oral tablet 1 tablet, By Mouth, Every 4 hours, PRN for pain, 1 tablet every 4 hours PRN for headaches fax # [phone], # 30 tablet, 5 Refills, Maintenance, 12/16/17 11:20:08 EDT, Tablet Start Date: 12/16/17 Status: OrderedCPAP Esthetician And Manager [employer], 05/19/18 8:04:57 EDT, Compound Start Date: 05/19/18 Status: Orderedcyclobenzaprine 10 mg oral tablet 10 mg, By Mouth, Every 8 hours, PRN, Muscle Spasms, # 21 tablet, Refills 0, Tot. Refills 0, Maintenance, Pain , Moderate, 09/16/20 14:52:00 EST, Route to Pharmacy Electronically, [facility]/pharmacy #[id number], Partial fill upon patient request if the prescriptio... Start Date: 09/16/20 Status: OrderedFlonase 50 mcg/inh nasal spray 1 sprays, Nares, Both, 2 times a day, in each nostril, # 48 mL, 1 Refills, Maintenance, 01/28/20 10:50:00 EDT, [place], [facility]/pharmacy #[id number], 1 sprays Nares, Both 2 times a day,Instr:in each nostril, 165.1, cm, 01/26/20 10:01:00 EDT, Height, 123, kg, 09/05... Start Date: 01/28/20 Status: OrderedFlovent HFA 110 mcg/inh inhalation aerosol 2 puffs, Inhalation, 2 times a day, rinse mouth and throat after use, # 12 Gm, 1 Refills, Maintenance, 08/14/19 12:08:00 EST, [place]eros[place], [facility]/pharmacy #[id number], 165.1, cm, 08/04/19 8:55:00 EST, [...] Refills, Maintenance, 06/27/20 10:16:00 EST, [place] Tablet, [facility]/pharmacy #[id number], Partial fill upon patient request, [...] Septate uterus(Confirmed) Active 2008 no polyps or [id number] Andrzej Social History Social History Type Response Smoking Status Never smoker entered on: 10/27/13 Sex
--- OUTSIDE RECORDS SUMMARY | 2022-05-06 01:06 | XMS_ITS | Continuity of Care Document ---
:1975 Author Organization [facility] Address [address] [place] [address]- Care Team Providers Name Role Phone Sue MARTINEZ, Alejandro Amaya Primary Care Physician En[place] [facility] [place] Date(s): 12/07/21 - 12/14/21 [facility] [address] [place] [address]- Encounter Diagnosis Hypertension (Discharge Diagnosis) - 12/07/21 Attending Physician: Maude Frausto NP Referring Physician: [...] Toxoid Vaccine (oldterm) 10/03/06 Given 1Admin Note: [employer] [facility] PointeIjhdrf4Eyeze Note: [id number] Note: SANOFI PASTEUR Medications amLODIPine 5 mg oral tablet 5 mg, 1, tablet, By Mouth, Daily, # 90 tablet, Refills 1, Tot. Refills 1, Maintenance, 12/07/21 15:39:00 EDT, Route to Pharmacy Electronically, [facility]/pharmacy #[id number], Partial fill upon patient request if the prescription is for a schedule II opioid drug.... Start Date: 12/07/21 Status: OrderedASA/butalbital/caffeine 325 mg-50 mg-40 mg oral tablet 1 tablet, By Mouth, Every 4 hours, PRN for pain, 1 tablet every 4 hours PRN for headaches fax # [phone], # 30 tablet, 5 Refills, Maintenance, 12/16/17 11:20:08 EDT, Tablet Start Date: 12/16/17 Status: OrderedCPAP Sales Representative [employer], 05/19/18 8:04:57 EDT, Compound Start Date: 05/19/18 Status: OrderedEpiPen 2-Maxi 0.3 mg injectable kit = 0.3 mg, Intramuscular, Once, # 1 each, 0 Refills, Soft Stop, 09/12/21 10:04:00 EST, [facility]/pharmacy #[id number], Partial fill upon patient request if the prescription is for a schedule II opioid drug., 165.1,cm, 03/21/21 7:14:00 EDT, Height, 125.8, kg, 06/06... Start Date: 09/12/21 Status: OrderedFlonase 50 mcg/inh nasal spray 1 sprays, Nares, Both, 2 times a day, in each nostril, # 48 mL, 1 Refills, Maintenance, 01/28/20 10:50:00 EDT, [place], [facility]/pharmacy #[id number], 1 sprays Nares, Both 2 times a day,Instr:in each nostril, 165.1, cm, 01/26/20 10:01:00 EDT, Height, 123, kg, 09/05... Start Date: 01/28/20 Status: OrderedFlovent HFA 110 mcg/inh inhalation aerosol 2 puffs, Inhalation, 2 times a day, rinse mouth and throat after use, # 12 Gm, 1 Refills, Maintenance, 02/10/21 8:24:00 EDT, [place], [facility]/pharmacy #[id number], 165.1, cm, 02/10/21 8:00:00 EDT, Height, [...] 90 tablet, 0 Refills, 11/07/21 10:38:00 EDT, [facility]/pharmacy #[id number], 90, 1 tablet By Mouth Daily, [...] tablet, 5 Refills, Maintenance, 09/26/20 10:20:00 EST, [facility]/pharmacy #[id number], Partial fill upon patient request if the prescription is for a schedule II opioid drug., 165.1, cm, 09/16/20 14:04:00 EST, Height, 125.8... Start Date: 09/26/20 Status: OrderedTylenol 325 mg oral capsule 2 capsule = 650 mg, By Mouth, Every 4 hours, PRN as needed for pain, # 90 capsule, 0 Refills, Maintenance, 03/23/20 8:44:00 EDT, Capsule, [facility]/pharmacy #[id number], 165.1, cm, 03/23/20 7:03:00 EDT, Height, [...] obesity(Confirmed) Active 1colo 2008 no polyps or [id number] Andrzej Diagnosis Diagnosis Type Effective Dates Health Status Clinical In [facility] Service Hypertension Discharge 12/07/21 Diagnosis Vital Signs Most recent to oldest [Reference Range]: 1 Height 165.10 cm (12/07/21 3:09 PM) Weight 126.8 kg (12/07/21 3:09 PM) Oxygen Saturation [94-100 %] 99 % (12/07/21 3:09 PM) Pulse Rate [55-90 bpm] 90 bpm (12/07/21 3:09 PM) Body Mass Index [18.5-24.99] 46.52 *>HHI* (12/07/21 3:09 PM) Blood Pressure [90-138/55-84 mm Hg] 124/78 mm Hg (12/07/21 3:09 PM) Respiratory Rate [16-30 br/min] 20 br/min (12/07/21 3:09 PM) Mode of Delivery (Oxygen) Room air (12/07/21 3:09 PM) Blood pressure sites Arm, left (12/07/21 3:09 PM) Weight Obtained Via Standing scale (12/07/21 3:09 PM) Social History Social History Type Response Smoking Status Never smoker entered on: 10/27/13 Sex
--- OUTSIDE RECORDS SUMMARY | 2022-05-06 01:07 | XMS_ITS | Continuity of Care Document ---
:1975 Author Organization [facility] Adult Address [address] [place] [address]- Care Team Providers Name Role Phone Sue MARTINEZ, Alejandro Amaya Primary Care Physician [place] [facility] [place] 03[place]21/21 [facility] [address] [place] [address]- Encounter Diagnosis Superficial bruising of lower leg (Discharge Diagnosis) - 03/14/21 Swelling of lower leg (Discharge Diagnosis) - 03/14/21 Attending Physician: Not on Staff, Attending MD [...] 08/02/09 Given influ virus vac, H1N1, inactive(oldterm)2 12/29/09 Given Pneumococcal Vaccine (oldterm) 06/04/08 Given Influenza Inactive (IM) (oldterm)3 06/04/08 Given Tetanus Toxoid Vaccine (oldterm) 10/03/06 Given 1Admin Note: [facility]2Admin Note: [id number] Note: SANOFI PASTEUR Medications ASA/butalbital/caffeine 325 mg-50 mg-40 mg oral tablet 1 tablet, By Mouth, Every 4 hours, PRN for pain, 1 tablet every 4 hours PRN for headaches fax # [phone], # 30 tablet, 5 Refills, Maintenance, 12/16/17 11:20:08 EDT, Tablet Start Date: 12/16/17 Status: OrderedCPAP Solar Energy Technician, 05/19/18 8:04:57 EDT, Compound Start Date: 05/19/18 Status: OrderedFlonase 50 mcg/inh nasal spray 1 sprays, Nares, Both, 2 times a day, in each nostril, # 48 mL, 1 Refills, Maintenance, 01/28/20 10:50:00 EDT, [place], [facility]/pharmacy #[id number], 1 sprays Nares, Both 2 times a day,Instr:in each nostril, 165.1, cm, 01/26/20 10:01:00 EDT, Height, 123, kg, 09/05... Start Date: 01/28/20 Status: OrderedFlovent HFA 110 mcg/inh inhalation aerosol 2 puffs, Inhalation, 2 times a day, rinse mouth and throat after use, # 12 Gm, 1 Refills, Maintenance, 02/10/21 8:24:00 EDT, Aerosol, [facility]/pharmacy #[id number], 165.1, cm, 02/10/21 8:00:00 EDT, Height, 125.8,kg, 06/27/20 9:45:00 EST, Dry Weight Start Date: 02/10/21 Status: OrderedFLUoxetine 20 mg oral capsule 60 mg, 3, capsule, By Mouth, Daily, # 270 capsule, Refills 3, Tot. Refills 3, Maintenance, 07/20/19 8:49:52 EST, Route to Pharmacy Electronically, [facility]/pharmacy #[id number], 165.1, cm, 07/20/19 8:25:18 [...] 0 Refills, Maintenance, 07/11/20 10:01:00 EST, Tablet, [facility]/pharmacy #[id number], 165.1, cm, 06/27/20 9:45:00 EST, Height, [...] 1 Refills, Maintenance, 07/11/20 10:00:00 EST, Tablet, [facility]/pharmacy #[id number], 1 tablet By Mouth [...] Septate uterus(Confirmed) Active 2008 no polyps or [id number] Andrzej Diagnosis Diagnosis Type Effective Dates Health Clinical Infor mant Status Service Superficial Discharge 03/14/21 bruising of lower Diagnosis leg Swelling of lower Discharge 03/14/21 leg Diagnosis Vital Signs Most recent to oldest [Reference Range]: 1 Height 165.10 cm (03/14/21 11:13 AM) Weight 124.4 kg (03/14/21 11:13 AM) Oxygen Saturation [94-100 %] 98 % (03/14/21 11:13 AM) Pulse Rate [55-90 bpm] 84 bpm (03/14/21 11:13 AM) Body Mass Index [18.5-24.99] 45.64 *>HHI* (03/14/21 11:13 AM) Blood Pressure [90-138/55-84 mm Hg] 122/80 mm Hg (8/10/21 11:13 AM) Blood pressure sites Arm, left (03/14/21 11:13 AM) Social History Social History Type Response Smoking Status Never smoker entered on: 10/27/13 Sex
--- OUTSIDE RECORDS SUMMARY | 2022-05-06 01:07 | XMS_ITS | Continuity of Care Document ---
:1975 Author Organization [facility] Adult Address [address] [place] [address]- Care Team Providers Name Role Phone Sue MARTINEZ, Alejandro Amaya Primary Care Physician [place] [facility] [place](s): 11/28/21 - 12/28/21 [facility] Adult [address] [place] [address]- Allergies, Adverse Reactions, Alerts Substance Reaction Severity [...] Toxoid Vaccine (oldterm) 10/03/06 Given 1Admin Note: [employer] [facility]2Admin Note: [id number] Note: SANOFI PASTEUR Medications amLODIPine 5 mg oral tablet 5 mg, 1, tablet, By Mouth, Daily, # 90 tablet, Refills 1, Tot. Refills 1, Maintenance, 12/07/21 15:39:00 EDT, Route to Pharmacy Electronically, [facility]/pharmacy #[id number], Partial fill upon patient request if the prescription is for a schedule II opioid drug.... Start Date: 12/07/21 Status: OrderedASA/butalbital/caffeine 325 mg-50 mg-40 mg oral tablet 1 tablet, By Mouth, Every 4 hours, PRN for pain, 1 tablet every 4 hours PRN for headaches fax # [phone], # 30 tablet, 5 Refills, Maintenance, 12/16/17 11:20:08 EDT, Tablet Start Date: 12/16/17 Status: OrderedCPAP Title I Teacher, 05/19/18 8:04:57 EDT, Compound Start Date: 05/19/18 Status: OrderedEpiPen 2-Maxi 0.3 mg injectable kit = 0.3 mg, Intramuscular, Once, # 1 each, 0 Refills, Soft Stop, 09/12/21 10:04:00 EST, [facility]/pharmacy #[id number], Partial fill upon patient request if the prescription is for a schedule II opioid drug., 165.1,cm, 03/21/21 7:14:00 EDT, Height, 125.8, kg, 06/06... Start Date: 09/12/21 Status: OrderedFlonase 50 mcg/inh nasal spray 1 sprays, Nares, Both, 2 times a day, in each nostril, # 48 mL, 1 Refills, Maintenance, 01/28/20 10:50:00 EDT, [place], [facility]/pharmacy #[id number], 1 sprays Nares, Both 2 times a day,Instr:in each nostril, 165.1, cm, 01/26/20 10:01:00 EDT, Height, 123, kg, 09/05... Start Date: 01/28/20 Status: OrderedFlovent HFA 110 mcg/inh inhalation aerosol 2 puffs, Inhalation, 2 times a day, rinse mouth and throat after use, # 12 Gm, 1 Refills, Maintenance, 02/10/21 8:24:00 EDT, Aerosol, [facility]/pharmacy #[id number], 165.1, cm, 02/10/21 8:00:00 EDT, Height, [...] 90 tablet, 0 Refills, 11/07/21 10:38:00 EDT, [facility]/pharmacy #[id number], 90, 1 tablet By Mouth Daily, [...] tablet, 5 Refills, Maintenance, 09/26/20 10:20:00 EST, [facility]/pharmacy #[id number], Partial fill upon patient request if the prescription is for a schedule II opioid drug., 165.1, cm, 09/16/20 14:04:00 EST, Height, 125.8... Start Date: 09/26/20 Status: OrderedTylenol 325 mg oral capsule 2 capsule = 650 mg, By Mouth, Every 4 hours, PRN as needed for pain, # 90 capsule, 0 Refills, Maintenance, 03/23/20 8:44:00 EDT, Capsule, [facility]/pharmacy #[id number], 165.1, cm, 03/23/20 7:03:00 EDT, Height, [...] obesity(Confirmed) Active 1colo 2008 no polyps or [id number] Andrzej Social History Social History Type Response Smoking Status Never smoker entered on: 10/27/13 Sex
--- OUTSIDE RECORDS SUMMARY | 2022-05-06 01:07 | XMS_ITS | Continuity of Care Document ---
:1975 Author Organization [facility] Adult Address [address] [place] [address]- Care Team Providers Name Role Phone Sue MARTINEZ, Alejandro Amaya Primary Care Physician Encounter [facility] [place] Date(s): 01/08/20 - 01/15/20 [facility] Adult [address] [place] [address]- [facility] Encounter Diagnosis Wrist pain, right (Discharge Diagnosis) - 01/08/20 Attending Physician: Not on Staff, Attending MD [...] Toxoid Vaccine (oldterm) 10/03/06 Given 1Admin Note: [employer] [facility] HospitalSfhkvi6Fkasr Note: [id number] Note: SANOFI PASTEUR Medications ASA/butalbital/caffeine 325 mg-50 mg-40 mg oral tablet 1 tablet, By Mouth, Every 4 hours, PRN for pain, 1 tablet every 4 hours PRN for headaches fax # [phone], # 30 tablet, 5 Refills, Maintenance, 12/16/17 11:20:08 EDT, Tablet Start Date: 12/16/17 Status: OrderedCPAP Food General Manager, 05/19/18 8:04:57 EDT, Compound Start Date: 05/19/18 Status: Orderedcyclobenzaprine 10 mg oral tablet 10 mg, 1, tablet, By Mouth, Daily at bedtime, # 14 tablet, Refills 0, Tot. Refills 0, Maintenance, 11/06/19 15:45:00 EDT, Route to Pharmacy Electronically, [facility]/pharmacy #[id number], 165.1, cm, 09/14/19 9:02:00 EST, Height, 123, kg, 09/14/19 9:02:00 EST, Dry... Start Date: 11/06/19 Status: OrderedFlonase 50 mcg/inh nasal spray 1 sprays, Nares, Both, 2 times a day, in each nostril, # 16 Gm, 6 Refills, Maintenance, 08/04/19 14:13:00 EST, [place], [facility]/pharmacy #[id number], 1 sprays Nares, [...] EST, Height Start Date: 07/20/19 Status: Orderedibuprofen 800 mg oral tablet 800 mg, 1, tablet, By Mouth, 3 times a day, PRN, with food or milk, # 42 tablet, Refills 0, Tot. Refills 0, Maintenance, for pain, 01/08/20 15:50:00 EDT, Route to Pharmacy Electronically, [facility]/pharmacy #[id number], 165.1, cm, 01/08/20 15:06:00 EDT, [...] 3 Refills, Maintenance, 07/20/19 8:49:52 EST, Tablet, [facility]/pharmacy #[id number], 1 tablet By Mouth Daily, [...] Active 1colo 2008 no polyps or cancer Diagnosis Diagnosis Type Effective Dates Health Status Clinical In formant Service Wrist pain, Discharge 01/08/20 right Diagnosis Vital Signs Most recent to oldest [Reference Range]: 1 Height 165.10 cm (01/08/20 3:06 PM) Social History Social History Type Response Smoking Status Never smoker entered on: 10/27/13 Sex
--- OUTSIDE RECORDS SUMMARY | 2022-05-06 01:07 | XMS_ITS | Continuity of Care Document ---
:1975 Author Organization [facility] Adult Address [address] [place] [address]- Care Team Providers Name Role Phone Sue MARTINEZ, Alejandro Amaya Primary Care Physician Encounter [facility] [place] Date(s): 11/28/21 - 12/28/21 [facility] Adult [address], [place] [address] Attending Physician: Not on Staff, Attending MD [...] Toxoid Vaccine (oldterm) 10/03/06 Given 1Admin Note: [employer] [facility]2Admin Note: [id number] Note: SANOFI PASTEUR Medications amLODIPine 5 mg oral tablet 5 mg, 1, tablet, By Mouth, Daily, # 90 tablet, Refills 1, Tot. Refills 1, Maintenance, 12/07/21 15:39:00 EDT, Route to Pharmacy Electronically, [facility]/pharmacy #[id number], Partial fill upon patient request if the prescription is for a schedule II opioid drug.... Start Date: 12/07/21 Status: OrderedASA/butalbital/caffeine 325 mg-50 mg-40 mg oral tablet 1 tablet, By Mouth, Every 4 hours, PRN for pain, 1 tablet every 4 hours PRN for headaches fax # [phone], # 30 tablet, 5 Refills, Maintenance, 12/16/17 11:20:08 EDT, Tablet Start Date: 12/16/17 Status: OrderedCPAP Top Collar Baster, 05/19/18 8:04:57 EDT, Compound Start Date: 05/19/18 Status: OrderedEpiPen 2-Maxi 0.3 mg injectable kit = 0.3 mg, Intramuscular, Once, # 1 each, 0 Refills, Soft Stop, 09/12/21 10:04:00 EST, [facility]/pharmacy #[id number], Partial fill upon patient request if the prescription is for a schedule II opioid drug., 165.1,cm, 03/21/21 7:14:00 EDT, Height, 125.8, kg, 06/06... Start Date: 09/12/21 Status: OrderedFlonase 50 mcg/inh nasal spray 1 sprays, Nares, Both, 2 times a day, in each nostril, # 48 mL, 1 Refills, Maintenance, 01/28/20 10:50:00 EDT, [place], [facility]/pharmacy #[id number], 1 sprays Nares, Both 2 times a day,Instr:in each nostril, 165.1, cm, 01/26/20 10:01:00 EDT, Height, 123, kg, 09/05... Start Date: 01/28/20 Status: OrderedFlovent HFA 110 mcg/inh inhalation aerosol 2 puffs, Inhalation, 2 times a day, rinse mouth and throat after use, # 12 Gm, 1 Refills, Maintenance, 02/10/21 8:24:00 EDT, Aerosol, [facility]/pharmacy #[id number], 165.1, cm, 02/10/21 8:00:00 EDT, Height, 125.8,kg, 06/27/20 9:45:00 EST, Dry Weight Start Date: 02/10/21 Status: OrderedFLUoxetine 20 mg oral capsule 60 mg, 3, capsule, By Mouth, Daily, # 270 capsule, Refills 3, Tot. Refills 3, Maintenance, 07/20/19 8:49:52 EST, Route to Pharmacy Electronically, [facility]/pharmacy #[id number], 165.1, cm, 07/20/19 8:25:18 EST, Height [...] 90 tablet, 0 Refills, 11/07/21 10:38:00 EDT, [facility]/pharmacy #[id number], 90, 1 tablet By Mouth Daily, 165.1, cm, 11/06/21 15:50:00 EDT, Height, 125.8, kg, 06/27/20 9:45:00 EST, DryWeight Start Date: 11/07/21 Status: OrderedKlonoPIN 0.5 mg oral tablet 1 tablet = 0.5 mg, By Mouth, 2 times a day, # 60 tablet, 0 Refills, Maintenance, 07/11/20 10:01:00 EST, Tablet, [facility]/pharmacy #[id number], 165.1, cm, 06/27/20 9:45:00 EST, Height, 125.8, kg, 06/27/20 9:45:00 EST, Dry Weight Start Date: 07/11/20 Status: OrderedMirena 52 mg intrauteral device 1 each = 52 mg, Once, 0 Refills, Maintenance, 07/25/16 15:52:04 Start Date: 07/25/16 Status: OrderedMyrbetriq 25 mg oral tablet, extended release 1 tablet = 25 mg, By Mouth, Daily, # 30 tablet, 5 Refills, Maintenance, 09/26/20 10:20:00 EST, [facility]/pharmacy #[id number], Partial fill upon patient request if the prescription is for a schedule II opioid drug., 165.1, cm, 09/16/20 14:04:00 EST, Height, 125.8... Start Date: 09/26/20 Status: OrderedTylenol 325 mg oral capsule 2 capsule = 650 mg, By Mouth, Every 4 hours, PRN as needed for pain, # 90 capsule, 0 Refills, Maintenance, 03/23/20 8:44:00 EDT, Capsule, [facility]/pharmacy #[id number], 165.1, cm, 03/23/20 7:03:00 EDT, Height, [...] obesity(Confirmed) Active 1colo 2008 no polyps or [id number] [facility] Vital Signs Most recent to oldest [Reference Range]: 1 2 Blood Pressure [90-138/55-84 mm Hg] 131/78 mm Hg 122/ 78 mm Hg (11/28/21 1:15 PM) (11/28/21 1:15 PM) Blood pressure sites Arm, left Arm, left (11/28/21 1:15 PM) (11/28/21 1:15 PM) Social History Social History Type Response Smoking Status Never smoker entered on: 10/27/13 Sex
--- OUTSIDE RECORDS SUMMARY | 2022-05-06 01:07 | XMS_ITS | Continuity of Care Document ---
:1975 Author Organization [facility] Adult Address [address] [place] [address]- Care Team Providers Name Role Phone Sue MARTINEZ, Alejandro Amaya Primary Care Physician Encounter [facility] [place] Date(s): 02/13/22 - 02/20/22 [facility] Adult [address] [place] [address]- Encounter Diagnosis Cough (Discharge Diagnosis) - 02/13/22 Attending Physician: Radha Lai Allergies, Adverse Reactions, [...] Toxoid Vaccine (oldterm) 10/03/06 Given 1Admin Note: [facility] CenterBiiiej4Gyogq Note: [id number] Note: SANOFI PASTEUR Medications amLODIPine 5 mg oral tablet 5 mg, 1, tablet, By Mouth, Daily, # 90 tablet, Refills 1, Tot. Refills 1, Maintenance, 12/07/21 15:39:00 EDT, Route to Pharmacy Electronically, [facility]/pharmacy #[id number], Partial fill upon patient request if the prescription is for a schedule II opioid drug.... Start Date: 12/07/21 Status: OrderedASA/butalbital/caffeine 325 mg-50 mg-40 mg oral tablet 1 tablet, By Mouth, Every 4 hours, PRN for pain, 1 tablet every 4 hours PRN for headaches fax # [phone], # 30 tablet, 5 Refills, Maintenance, 12/16/17 11:20:08 EDT, Tablet Start Date: 12/16/17 Status: OrderedCPAP Closed Circuit Screen Watcher, 05/19/18 8:04:57 EDT, Compound Start Date: 05/19/18 Status: OrderedEpiPen 2-Maxi 0.3 mg injectable kit = 0.3 mg, Intramuscular, Once, # 1 each, 0 Refills, Soft Stop, 09/12/21 10:04:00 EST, [facility]/pharmacy #[id number], Partial fill upon patient request if the prescription is for a schedule II opioid drug., 165.1,cm, 03/21/21 7:14:00 EDT, Height, 125.8, kg, 06/06... Start Date: 09/12/21 Status: OrderedFlonase 50 mcg/inh nasal spray 1 sprays, Nares, Both, 2 times a day, in each nostril, # 48 mL, 1 Refills, Maintenance, 01/28/20 10:50:00 EDT, [place], [facility]/pharmacy #[id number], 1 sprays [...] 90 tablet, 0 Refills, 11/07/21 10:38:00 EDT, [facility]/pharmacy #[id number], 90, 1 tablet By [...] Severe obesity(Confirmed) Active 1c2008 no polyps or [id number] Andrzej Diagnosis Diagnosis Type Effective Dates Health Status Clinical Serv ice Informant Cough Discharge 02/13/22 Diagnosis Vital Signs Most recent to oldest [Reference Range]: 1 Height 165.10 cm (02/13/22 8:19 AM) Weight 126.27 kg (02/13/22 8:19 AM) Oxygen Saturation [94-100 %] 99 % (02/13/22 8:19 AM) Pulse Rate [55-90 bpm] 91 bpm *H* (02/13/22 8:19 AM) Body Mass Index [18.5-24.99] 46.32 *>HHI* (02/13/22 8:19 AM) Blood Pressure [90-138/55-84 mm Hg] 115/65 mm Hg (02/13/22 8:19 AM) Temperature [96.8-100.4 DegF] 98 DegF (02/13/22 8:19 AM) Blood pressure sites Arm, right (02/13/22 8:19 AM) Temperature Route Temporal (02/13/22 8:19 AM) Weight Obtained Via Standing scale (02/13/22 8:19 AM) Social History Social History Type Response Smoking Status Never smoker entered on: 10/27/13 Sex
--- OUTSIDE RECORDS SUMMARY | 2022-05-06 01:07 | XMS_ITS | Continuity of Care Document ---
:1975 Author Organization [facility] p Address [address] [place] [address], [address] [place] [address]- Care Team Providers Name Role Phone Alejandro Rgoers MD Primary Care Physician Encounter [facility] Date(s): 04/13/20 - 05/13/20 [facility] [address] [place] [address]- [facility] Allergies, Adverse Reactions, Alerts Substance Reaction Severity [...] Toxoid Vaccine (oldterm) 10/03/06 Given 1Admin Note: [id number] Note: [id number] Note: SANOFI PASTEUR Medications ASA/butalbital/caffeine 325 mg-50 mg-40 mg oral tablet 1 tablet, By Mouth, Every 4 hours, PRN for pain, 1 tablet every 4 hours PRN for headaches fax # [phone], # 30 tablet, 5 Refills, Maintenance, 12/16/17 11:20:08 EDT, Tablet Start Date: 12/16/17 Status: OrderedCPAP Bottling Equipment Sales Representative, 05/19/18 8:04:57 EDT, Compound Start Date: 05/19/18 Status: OrderedFlonase 50 mcg/inh nasal spray 1 sprays, Nares, Both, 2 times a day, in each nostril, # 48 mL, 1 Refills, Maintenance, 01/28/20 10:50:00 EDT, [place], [facility]/pharmacy #[id number], 1 sprays Nares, Both 2 times a day,Instr:in each nostril, 165.1, cm, 01/26/20 10:01:00 EDT, Height, 123, kg, 09/05... Start Date: 01/28/20 Status: OrderedFlovent HFA 110 mcg/inh inhalation aerosol 2 puffs, Inhalation, 2 times a day, rinse mouth and throat after use, # 12 Gm, 1 Refills, Maintenance, 08/14/19 12:08:00 EST, Aerosol, [facility]/pharmacy #[id number], 165.1, cm, 08/04/19 8:55:00 EST, Height Start Date: 08/14/19 Status: OrderedFLUoxetine 20 mg oral capsule 60 mg, 3, capsule, By Mouth, Daily, # 270 capsule, Refills 3, Tot. Refills 3, Maintenance, 07/20/19 8:49:52 EST, Route to Pharmacy Electronically, [facility]/pharmacy #[id number], 165.1, cm, 07/20/19 8:25:18 EST, Height Start Date: 07/20/19 Status: Orderedibuprofen 600 mg oral tablet 600 mg, 1, tablet, By Mouth, Every 6 hours, PRN, # 40 tablet, Refills 0, Tot. Refills 0, Maintenance, for pain, 03/23/20 8:44:00 EDT, Route to Pharmacy Electronically, [facility]/pharmacy #[id number], 165.1, cm, 03/23/20 7:03:00 EDT, Height, 125.8, kg, 03/23/20 7:... Start Date: 03/23/20 Status: Orderedibuprofen 800 mg oral tablet 800 mg, 1, tablet, By Mouth, 3 times a day, PRN, with food or milk, # 42 tablet, Refills 0, Tot. Refills 0, Maintenance, for pain, 01/08/20 15:50:00 EDT, Route to Pharmacy Electronically, [facility]/pharmacy #[id number], 165.1, cm, 01/08/20 15:06:00 EDT, [...] Refills, Maintenance, 03/23/20 8:44:00 EDT, Capsule, [facility]/pharmacy #[id number], 165.1, cm, 03/23/20 7:03:00 EDT, [...] Refills, Maintenance, 07/20/19 8:49:52 EST, Tablet, [facility]/pharmacy #[id number], 1 tablet By Mouth Daily, [...]
--- OUTSIDE RECORDS SUMMARY | 2022-05-06 01:07 | XMS_ITS | Continuity of Care Document ---
:1975 Author Organization [facility] Adult Address [address] [place] [address]- Care Team Providers Name Role Phone Sue MARTINEZ, Alejandro Amaya Primary Care Physician Encounter [facility] Date(s): 07/11/20 - 08/10/20 [facility] Adult [address] [place] [address]- Allergies, Adverse Reactions, Alerts Substance Reaction Severity [...] Toxoid Vaccine (oldterm) 10/03/06 Given 1Admin Note: [id number] Note: [id number] Note: SANOFI PASTEUR Medications ASA/butalbital/caffeine 325 mg-50 mg-40 mg oral tablet 1 tablet, By Mouth, Every 4 hours, PRN for pain, 1 tablet every 4 hours PRN for headaches fax # [phone], # 30 tablet, 5 Refills, Maintenance, 12/16/17 11:20:08 EDT, Tablet Start Date: 12/16/17 Status: OrderedCPAP Fishing Reel Assembler, 05/19/18 8:04:57 EDT, Compound Start Date: 05/19/18 Status: OrderedFlonase 50 mcg/inh nasal spray 1 sprays, Nares, Both, 2 times a day, in each nostril, # 48 mL, 1 Refills, Maintenance, 01/28/20 10:50:00 EDT, [place], [facility]/pharmacy #[id number], 1 sprays Nares, Both 2 times a day,Instr:in each nostril, 165.1, cm, 01/26/20 10:01:00 EDT, Height, 123, kg, 09/05... Start Date: 01/28/20 Status: OrderedFlovent HFA 110 mcg/inh inhalation aerosol 2 puffs, Inhalation, 2 times a day, rinse mouth and throat after use, # 12 Gm, 1 Refills, Maintenance, 08/14/19 12:08:00 EST, Aerosol, [facility]/pharmacy #[id number], 165.1, cm, 08/04/19 8:55:00 EST, Height Start Date: 08/14/19 Status: OrderedFLUoxetine 20 mg oral capsule 60 mg, 3, capsule, By Mouth, Daily, # 270 capsule, Refills 3, Tot. Refills 3, Maintenance, 07/20/19 8:49:52 EST, Route to Pharmacy Electronically, [facility]/pharmacy #[id number], 165.1, cm, 07/20/19 8:25:18 EST, Height Start Date: 07/20/19 Status: OrderedKlonoPIN 0.5 mg oral tablet 1 tablet = 0.5 mg, By Mouth, 2 times a day, # 60 tablet, 0 Refills, Maintenance, 07/11/20 10:01:00 EST, Tablet, [facility]/pharmacy #[id number], 165.1, cm, 06/27/20 9:45:00 EST, [...] Septate uterus(Confirmed) Active 1c2008 no polyps or [id number] [facility] Social History Social History Type Response Smoking Status Never smoker entered on: 10/27/13 Sex
--- OUTSIDE RECORDS SUMMARY | 2022-05-06 01:07 | XMS_ITS | Continuity of Care Document ---
:[address] [facility] Adult Address [address] [place] [address]- Care Team Providers Name Role Phone Sue MARTINEZ, Alejandro Amaya Primary Care Physician Encounter [facility] Date(s): 03/16/22 - 04/15/22 [facility] Adult [address] [place] [address]- Allergies, Adverse Reactions, Alerts Substance Reaction Severity [...] Toxoid Vaccine (oldterm) 10/03/06 Given 1Admin Note: [employer] [facility]2Admin Note: [id number] Note: SANOFI PASTEUR Medications amLODIPine 5 mg [...] 4 hours PRN for headaches fax # [phone], # 30 tablet, 5 Refills, Maintenance, 12/16/17 11:20:08 EDT, Tablet Start Date: 12/16/17 Status: OrderedCPAP Tablet Making Machine Operator Helper, 05/19/18 8:04:57 EDT, Compound Start Date: 05/19/18 [...] mL, 1 Refills, Maintenance, 01/28/20 10:50:00 EDT, [place], [facility]/pharmacy #[id number], 1 sprays Nares, [...] Severe obesity(Confirmed) Active 1c2008 no polyps or [id number] [place] Social History Social History Type Response Smoking Status Never smoker entered on: 10/27/13 Sex Care Team PersonnelName: Sue MARTINEZ, Alejandro Amaya Address: [address] [place] [id number]
--- OUTSIDE RECORDS SUMMARY | 2022-05-06 01:07 | XMS_ITS | Continuity of Care Document ---
:1975 Author Organization [facility] Adult Address [address] [place] [address]- Care Team Providers Name Role Phone Sue MARTINEZ, Alejandro Amaya Primary Care Physician [place] [facility]/21/21 - 04/20/21 [facility] Adult [address] [place] [address]- Attending Physician: Admtr, Lorna Allergies, Adverse Reactions, Alerts Substance Reaction Severity [...] Toxoid Vaccine (oldterm) 10/03/06 Given 1Admin Note: [employer] [facility]2Admin Note: [id number] Note: SANOFI PASTEUR Medications ASA/butalbital/caffeine 325 mg-50 mg-40 mg oral tablet 1 tablet, By Mouth, Every 4 hours, PRN for pain, 1 tablet every 4 hours PRN for headaches fax # [phone], # 30 tablet, 5 Refills, Maintenance, 12/16/17 11:20:08 EDT, Tablet Start Date: 12/16/17 Status: OrderedCPAP Clerical Administrator, 05/19/18 8:04:57 EDT, Compound Start Date: 05/19/18 Status: OrderedFlonase 50 mcg/inh nasal spray 1 sprays, Nares, Both, 2 times a day, in each nostril, # 48 mL, 1 Refills, Maintenance, 01/28/20 10:50:00 EDT, [place], [facility]/pharmacy #[id number], 1 sprays Nares, Both 2 times a day,Instr:in each nostril, 165.1, cm, 01/26/20 10:01:00 EDT, Height, 123, kg, 09/05... Start Date: 01/28/20 Status: OrderedFlovent HFA 110 mcg/inh inhalation aerosol 2 puffs, Inhalation, 2 times a day, rinse mouth and throat after use, # 12 Gm, 1 Refills, Maintenance, 02/10/21 8:24:00 EDT, Aerosol, [facility]/pharmacy #[id number], 165.1, cm, 02/10/21 8:00:00 EDT, Height, 125.8,kg, 06/27/20 9:45:00 EST, Dry Weight Start Date: 02/10/21 Status: OrderedFLUoxetine 20 mg oral capsule 60 mg, 3, capsule, By Mouth, Daily, # 270 capsule, Refills 3, Tot. Refills 3, Maintenance, 07/20/19 8:49:52 EST, Route to Pharmacy Electronically, [facility]/pharmacy #[id number], 165.1, cm, 07/20/19 8:25:18 [...] 0 Refills, Maintenance, 07/11/20 10:01:00 EST, Tablet, [facility]/pharmacy #[id number], 165.1, cm, 06/27/20 9:45:00 [...] tablet, 5 Refills, Maintenance, 09/26/20 10:20:00 EST, [facility]/pharmacy #[id number], Partial fill upon patient request if the prescription is for a schedule II opioid drug., 165.1, cm, 09/16/20 14:04:00 EST, Height, 125.8... Start Date: 09/26/20 Status: OrderedTylenol 325 mg oral capsule 2 capsule = 650 mg, By Mouth, Every 4 hours, PRN as needed for pain, # 90 capsule, 0 Refills, Maintenance, 03/23/20 8:44:00 EDT, Capsule, [facility]/pharmacy #[id number], 165.1, cm, 03/23/20 7:03:00 [...] 1 Refills, Maintenance, 07/11/20 10:00:00 EST, Tablet, [facility] [...] Septate uterus(Confirmed) Active 1c2008 no polyps or [id number] [employer] Social History Social History Type Response Smoking Status Never smoker entered on: 10/27/13 Sex
--- OUTSIDE RECORDS SUMMARY | 2022-05-06 01:07 | XMS_ITS | Continuity of Care Document ---
:1975 Author Organization [facility] Adult Address [address] [place] [address]- Care Team Providers Name Role Phone Sue MARTINEZ, Alejandro Amaya Primary Care Physician Encounter [facility] Date(s): 07/22/20 - 08/21/20 [facility] Adult [address] [place] [address]- Allergies, Adverse Reactions, Alerts Substance Reaction Severity [...] Toxoid Vaccine (oldterm) 10/03/06 Given 1Admin Note: [employer] [facility] Pcpndx6Kspth Note: [id number] Note: SANOFI PASTEUR Medications ASA/butalbital/caffeine 325 mg-50 mg-40 mg oral tablet 1 tablet, By Mouth, Every 4 hours, PRN for pain, 1 tablet every 4 hours PRN for headaches fax # [phone], # 30 tablet, 5 Refills, Maintenance, 12/16/17 11:20:08 EDT, Tablet Start Date: 12/16/17 Status: OrderedCPAP Wheel Buffer, 05/19/18 8:04:57 EDT, Compound Start Date: 05/19/18 Status: OrderedFlonase 50 mcg/inh nasal spray 1 sprays, Nares, Both, 2 times a day, in each nostril, # 48 mL, 1 Refills, Maintenance, 01/28/20 10:50:00 EDT, [place], [facility]/pharmacy #[id number], 1 sprays Nares, Both 2 times a day,Instr:in each nostril, 165.1, cm, 01/26/20 10:01:00 EDT, Height, 123, kg, 09/05... Start Date: 01/28/20 Status: OrderedFlovent HFA 110 mcg/inh inhalation aerosol 2 puffs, Inhalation, 2 times a day, rinse mouth and throat after use, # 12 Gm, 1 Refills, Maintenance, 08/14/19 12:08:00 EST, Aeros[place], [facility]/pharmacy #[id number], 165.1, cm, 08/04/19 8:55:00 [...] 0 Refills, Maintenance, 07/11/20 10:01:00 EST, Tablet, [facility]/pharmacy #[id number], 165.1, cm, 06/27/20 9:45:00 [...] Septate uterus(Confirmed) Active 1c2008 no polyps or [id number] [facility] Social History Social History Type Response Smoking Status Never smoker entered on: 10/27/13 Sex
--- OUTSIDE RECORDS SUMMARY | 2022-05-06 01:07 | XMS_ITS | Continuity of Care Document ---
:1975 Author Organization [facility] Adult Address [address] [place] [address]- Care Team Providers Name Role Phone Sue MARTINEZ, Alejandro Amaya Primary Care Physician [place] [facility] [place] 02/[place]/22 [facility] [address] [place] [address]- Allergies, Adverse Reactions, Alerts Substance Reaction Severity [...] Toxoid Vaccine (oldterm) 10/03/06 Given 1Admin Note: [employer] [facility]2Admin Note: [id number] Note: SANOFI PASTEUR Medications amLODIPine 5 mg oral tablet 5 mg, 1, tablet, By Mouth, Daily, # 90 tablet, Refills 1, Tot. Refills 1, Maintenance, 12/07/21 15:39:00 EDT, Route to Pharmacy Electronically, [facility]/pharmacy #[id number], Partial fill upon patient request if the prescription is for a schedule II opioid drug.... Start Date: 12/07/21 Status: OrderedASA/butalbital/caffeine 325 mg-50 mg-40 mg oral tablet 1 tablet, By Mouth, Every 4 hours, PRN for pain, 1 tablet every 4 hours PRN for headaches fax # [phone], # 30 tablet, 5 Refills, Maintenance, 12/16/17 11:20:08 EDT, Tablet Start Date: 12/16/17 Status: OrderedCPAP Treasury Accountant, 05/19/18 8:04:57 EDT, Compound Start Date: 05/19/18 Status: OrderedEpiPen 2-Maxi 0.3 mg injectable kit = 0.3 mg, Intramuscular, Once, # 1 each, 0 Refills, Soft Stop, 09/12/21 10:04:00 EST, [facility]/pharmacy #[id number], Partial fill upon patient request if the prescription is for a schedule II opioid drug., 165.1,cm, 03/21/21 7:14:00 EDT, Height, 125.8, kg, 06/06... Start Date: 09/12/21 Status: OrderedFlonase 50 mcg/inh nasal spray 1 sprays, Nares, Both, 2 times a day, in each nostril, # 48 mL, 1 Refills, Maintenance, 01/28/20 10:50:00 EDT, [place], [facility]/pharmacy #[id number], 1 sprays Nares, Both 2 times a day,Instr:in each nostril, 165.1, cm, 01/26/20 10:01:00 EDT, Height, 123, kg, 09/05... Start Date: 01/28/20 Status: OrderedFlovent HFA 110 mcg/inh inhalation aerosol 2 puffs, Inhalation, 2 times a day, rinse mouth and throat after use, # 12 Gm, 1 Refills, Maintenance, 02/10/21 8:24:00 EDT, [place], [facility]/pharmacy #[id number], 165.1, cm, 02/10/21 8:00:00 EDT, Height, [...] 90 tablet, 0 Refills, 11/07/21 10:38:00 EDT, [facility]/pharmacy #[id number], 90, 1 tablet By Mouth Daily, 165.1, cm, 11/06/21 15:50:00 EDT, Height, 125.8, kg, 06/27/20 9:45:00 EST, DryWeight Start Date: 11/07/21 Status: OrderedKlonoPIN 0.5 mg oral tablet 1 tablet = 0.5 mg, By Mouth, 2 times a day, # 60 tablet, 0 Refills, Maintenance, 07/11/20 10:01:00 EST, Tablet, [facility]/pharmacy #[id number], 165.1, cm, 06/27/20 9:45:00 EST, Height, [...] Severe obesity(Confirmed) Active 1c2008 no polyps or [id number] Andrzej Social History Social History Type Response Smoking Status Never smoker entered on: 10/27/13 Sex
--- OUTSIDE RECORDS SUMMARY | 2022-05-06 01:07 | XMS_ITS | Continuity of Care Document ---
:1975 Author Organization [facility] Address [address] [place] [address]- Care Team Providers Name Role Phone Sue MARTINEZ, Alejandro Amaya Primary Care Physician Encounter [facility] Date(s): 05/25/21 - 06/24/21 [facility] [address] [place] [address]- Attending Physician: Lorna Jay Admitting Physician: AdmLorna moya Referring Physician: AdmtrLorna Allergies, Adverse Reactions, Alerts Substance Reaction Severity [...] Toxoid Vaccine (oldterm) 10/03/06 Given 1Admin Note: [employer] [facility]2Admin Note: [id number] Note: SANOFI PASTEUR Medications ASA/butalbital/caffeine 325 mg-50 mg-40 mg oral tablet 1 tablet, By Mouth, Every 4 hours, PRN for pain, 1 tablet every 4 hours PRN for headaches fax # [phone], # 30 tablet, 5 Refills, Maintenance, 12/16/17 11:20:08 EDT, Tablet Start Date: 12/16/17 Status: OrderedCPAP Hydraulic Miner, 05/19/18 8:04:57 EDT, Compound Start Date: 05/19/18 Status: OrderedFlonase 50 mcg/inh nasal spray 1 sprays, Nares, Both, 2 times a day, in each nostril, # 48 mL, 1 Refills, Maintenance, 01/28/20 10:50:00 EDT, [place], [facility]/pharmacy #[id number], 1 sprays Nares, Both 2 times a day,Instr:in each nostril, 165.1, cm, 01/26/20 10:01:00 EDT, Height, 123, kg, 09/05... Start Date: 01/28/20 Status: OrderedFlovent HFA 110 mcg/inh inhalation aerosol 2 puffs, Inhalation, 2 times a day, rinse mouth and throat after use, # 12 Gm, 1 Refills, Maintenance, 02/10/21 8:24:00 EDT, [place], [facility]/pharmacy #[id number], 165.1, cm, 02/10/21 8:00:00 EDT, Height, 125.8,kg, 06/27/20 9:45:00 EST, Dry Weight Start Date: 02/10/21 Status: OrderedFLUoxetine 20 mg oral capsule 60 mg, 3, capsule, By Mouth, Daily, # 270 capsule, Refills 3, Tot. Refills 3, Maintenance, 07/20/19 8:49:52 EST, Route to Pharmacy Electronically, [facility]/pharmacy #[id number], 165.1, cm, 07/20/19 8:25:18 [...] Mouth, Daily, # 90 tablet, 1 Refills, [facility] STORE [id number], 90, TAKE 1 TABLET BY MOUTH EVERYDAY, 165.1, cm, 03/21/21 7:14:00 EDT, Height, 125.8, kg, 06/27/20 9:45:00 EST, Dry Weight Start Date: 04/25/21 Status: OrderedKlonoPIN 0.5 mg oral tablet 1 tablet = 0.5 mg, By Mouth, 2 times a day, # 60 tablet, 0 Refills, Maintenance, 07/11/20 10:01:00 EST, Tablet, [facility]/pharmacy #[id number], 165.1, cm, 06/27/20 9:45:00 [...] tablet, 5 Refills, Maintenance, 09/26/20 10:20:00 EST, [facility]/pharmacy #[id number], Partial fill upon patient request if the prescription is for a schedule II opioid drug., 165.1, cm, 09/16/20 14:04:00 EST, Height, 125.8... Start Date: 09/26/20 Status: OrderedTylenol 325 mg oral capsule 2 capsule = 650 mg, By Mouth, Every 4 hours, PRN as needed for pain, # 90 capsule, 0 Refills, Maintenance, 03/23/20 8:44:00 EDT, Capsule, [facility]/pharmacy #[id number], 165.1, cm, 03/23/20 7:03:00 [...] Septate uterus(Confirmed) Active 2008 no polyps or [id number] Andrzej Social History Social History Type Response Smoking Status Never smoker entered on: 10/27/13 Sex
--- OUTSIDE RECORDS SUMMARY | 2022-05-06 01:07 | XMS_ITS | Continuity of Care Document ---
:1975 Author Organization [facility] Adult Address [address] [place] [address]- Care Team Providers Name Role Phone Sue MARTINEZ, Alejandro Amaya Primary Care Physician Encounter [facility] Date(s): 10/12/20 - 11/11/20 [facility] [address] [place] [address]- Allergies, Adverse Reactions, Alerts Substance Reaction Severity [...] Toxoid Vaccine (oldterm) 10/03/06 Given 1Admin Note: [employer] of Fwlquw2Uqkqx Note: [id number] Note: SANOFI PASTEUR Medications ASA/butalbital/caffeine 325 mg-50 mg-40 mg oral tablet 1 tablet, By Mouth, Every 4 hours, PRN for pain, 1 tablet every 4 hours PRN for headaches fax # [phone], # 30 tablet, 5 Refills, Maintenance, 12/16/17 11:20:08 EDT, Tablet Start Date: 12/16/17 Status: OrderedCPAP Lawn Mower Repairer, 05/19/18 8:04:57 EDT, Compound Start Date: 05/19/18 Status: Orderedcyclobenzaprine 10 mg oral tablet 10 mg, By Mouth, Every 8 hours, PRN, Muscle Spasms, # 21 tablet, Refills 0, Tot. Refills 0, Maintenance, Pain , Moderate, 09/16/20 14:52:00 EST, Route to Pharmacy Electronically, [facility]/pharmacy #[id number], Partial fill upon patient request if the prescriptio... Start Date: 09/16/20 Status: OrderedFlonase 50 mcg/inh nasal spray 1 sprays, Nares, Both, 2 times a day, in each nostril, # 48 mL, 1 Refills, Maintenance, 01/28/20 10:50:00 EDT, [place], [facility]/pharmacy #[id number], 1 sprays Nares, Both 2 times a day,Instr:in each nostril, 165.1, cm, 01/26/20 10:01:00 EDT, Height, 123, kg, 09/05... Start Date: 01/28/20 Status: OrderedFlovent HFA 110 mcg/inh inhalation aerosol 2 puffs, Inhalation, 2 times a day, rinse mouth and throat after use, # 12 Gm, 1 Refills, Maintenance, 08/14/19 12:08:00 EST, Aerosol, [facility]/pharmacy [...] Septate uterus(Confirmed) Active 2008 no polyps or [id number] Andrzej Social History Social History Type Response Smoking Status Never smoker entered on: 10/27/13 Sex
--- OUTSIDE RECORDS SUMMARY | 2022-05-06 01:07 | XMS_ITS | Continuity of Care Document ---
:1975 Author Organization [facility] Adult Address [address] [place] [address]- Care Team Providers Name Role Phone Sue MARTINEZ, Alejandro Amaya Primary Care Physician Encounter [facility] Date(s): 07/20/19 - 07/27/19 [facility] [address] [place] [address]- [facility] Attending Physician: Maude Frausto NP Referring Physician: [...] (oldterm) 10/03/06 Given 1Admin Note: [employer] of [id number] Note: [id number] Note: SANOFI PASTEUR Medications ASA/butalbital/caffeine 325 mg-50 mg-40 mg oral tablet 1 tablet, By Mouth, Every 4 hours, PRN for pain, 1 tablet every 4 hours PRN for headaches fax # [phone], # 30 tablet, 5 Refills, Maintenance, 12/16/17 11:20:08 EDT, Tablet Start Date: 12/16/17 Status: OrderedCPAP Rotary Machine Operator, 05/19/18 8:04:57 EDT, Compound Start Date: 05/19/18 Status: OrderedFlovent HFA 110 mcg/inh inhalation aerosol 2 puffs, Inhalation, 2 times a day, rinse mouth and throat after use, # 12 Gm, 1 Refills, Maintenance, 07/20/19 8:51:31 EST, Aeros[place], [facility]/pharmacy #[id number], 165.1, cm, 07/20/19 8:25:18 EST, Height Start Date: 07/20/19 Status: OrderedFLUoxetine 20 mg oral capsule 60 mg, 3, capsule, By Mouth, Daily, # 270 capsule, Refills 3, Tot. Refills 3, Maintenance, 07/20/19 8:49:52 EST, Route to Pharmacy Electronically, [facility]/pharmacy #[id number], 165.1, cm, 07/20/19 8:25:18 [...] oldest [Reference Range]: 1 Height 165.10 cm (07/20/19 8:25 AM) Weight 121.7 kg (07/20/19 8:25 AM) Oxygen Saturation [94-100 %] 98 % (07/20/19 8:25 AM) Pulse Rate [55-90 bpm] 81 bpm (07/20/19 8:25 AM) Body Mass Index [18.5-24.99] 44.65 *>HHI* (07/20/19 8:25 AM) Blood Pressure [90-138/55-84 mm Hg] 128/84 mm Hg (07/20/19 8:25 AM) Blood pressure sites Arm, left (07/20/19 8:25 AM) Social History Social History Type Response Smoking Status Never smoker entered on: 10/27/13 Sex
--- OUTSIDE RECORDS SUMMARY | 2022-05-06 01:07 | XMS_ITS | Continuity of Care Document ---
:1975 Author Organization [facility] Address [address] [place] [address], [address] [place] [address]- Care Team Providers Name Role Phone Alejandro Rogers MD Primary Care Physician Encounter [facility] Date(s): 10/14/19 - 02/11/20 [facility] [address] [address]- [facility] Attending Physician: Kacie Huff MD [...] Toxoid Vaccine (oldterm) 10/03/06 Given 1Admin Note: [facility]tzr[facility]Mnxkl Note: [id number] Note: SANOFI PASTEUR Medications ASA/butalbital/caffeine 325 mg-50 mg-40 mg oral tablet 1 tablet, By Mouth, Every 4 hours, PRN for pain, 1 tablet every 4 hours PRN for headaches fax # [phone], # 30 tablet, 5 Refills, Maintenance, 12/16/17 11:20:08 EDT, Tablet Start Date: 12/16/17 Status: OrderedCPAP Piping Engineer, 05/19/18 8:04:57 EDT, Compound Start Date: 05/19/18 Status: Orderedcyclobenzaprine 10 mg oral tablet 10 mg, 1, tablet, By Mouth, Daily at bedtime, # 14 tablet, Refills 0, Tot. Refills 0, Maintenance, 11/06/19 15:45:00 EDT, Route to Pharmacy Electronically, [facility]/pharmacy #[id number], 165.1, cm, 09/14/19 9:02:00 EST, Height, 123, kg, 09/14/19 9:02:00 EST, Dry... Start Date: 11/06/19 Status: OrderedFlonase 50 mcg/inh nasal spray 1 sprays, Nares, Both, 2 times a day, in each nostril, # 48 mL, 1 Refills, Maintenance, 01/28/20 10:50:00 EDT, [place], [facility]/pharmacy #[id number], 1 sprays Nares, Both 2 times a day,Instr:in each nostril, 165.1, cm, 01/26/20 10:01:00 EDT, Height, 123, kg, 09/05... Start Date: 01/28/20 Status: OrderedFlovent HFA 110 mcg/inh inhalation aerosol 2 puffs, Inhalation, 2 times a day, rinse mouth and throat after use, # 12 Gm, 1 Refills, Maintenance, 08/14/19 12:08:00 EST, [place]eros[place], [facility]/pharmacy #[id number], 165.1, cm, 08/04/19 8:55:00 EST, Height Start Date: 08/14/19 Status: OrderedFLUoxetine 20 mg oral capsule 60 mg, 3, capsule, By Mouth, Daily, # 270 capsule, Refills 3, Tot. Refills 3, Maintenance, 07/20/19 8:49:52 EST, Route to Pharmacy Electronically, [facility]/pharmacy #[id number], 165.1, cm, 07/20/19 8:25:18 EST, Height Start Date: 07/20/19 Status: Orderedibuprofen 800 mg oral tablet 800 mg, 1, tablet, By Mouth, 3 times a day, PRN, with food or milk, # 42 tablet, Refills 0, Tot. Refills 0, Maintenance, for pain, 01/08/20 15:50:00 EDT, Route to Pharmacy Electronically, [facility]/pharmacy #[id number], 165.1, cm, 01/08/20 15:06:00 EDT, [...] 3 Refills, Maintenance, 07/20/19 8:49:52 EST, Tablet, [facility]/pharmacy #[id number], 1 tablet By Mouth [...]
--- OUTSIDE RECORDS SUMMARY | 2022-05-06 01:07 | XMS_ITS | Continuity of Care Document ---
:1975 Author Organization [facility] Adult Address [address] [place] [address]- Care Team Providers Name Role Phone Alejandro Rogers MD Primary Care Physician Encounter [facility] [place] Date(s): 01/26/20 - 02/02/20 [facility] Adult [address] [place] [address]- [facility] Attending Physician: Maude Frausto NP Referring Physician: [...] Toxoid Vaccine (oldterm) 10/03/06 Given 1Admin Note: [facility]nj Note: [id number] Note: SANOFI PASTEUR Medications ASA/butalbital/caffeine 325 mg-50 mg-40 mg oral tablet 1 tablet, By Mouth, Every 4 hours, PRN for pain, 1 tablet every 4 hours PRN for headaches fax # [phone], # 30 tablet, 5 Refills, Maintenance, 12/16/17 11:20:08 EDT, Tablet Start Date: 12/16/17 Status: OrderedCPAP Tan Room Supervisor, 05/19/18 8:04:57 EDT, Compound Start Date: 05/19/18 Status: Orderedcyclobenzaprine 10 mg oral tablet 10 mg, 1, tablet, By Mouth, Daily at bedtime, # 14 tablet, Refills 0, Tot. Refills 0, Maintenance, 11/06/19 15:45:00 EDT, Route to Pharmacy Electronically, [facility]/pharmacy #[id number], 165.1, cm, 09/14/19 9:02:00 EST, Height, 123, kg, 09/14/19 9:02:00 EST, Dry... Start Date: 11/06/19 Status: OrderedFlonase 50 mcg/inh nasal spray 1 sprays, Nares, Both, 2 times a day, in each nostril, # 48 mL, 1 Refills, Maintenance, 01/28/20 10:50:00 EDT, [place], [facility]/pharmacy #[id number], 1 sprays Nares, Both 2 times a day,Instr:in each nostril, 165.1, cm, 01/26/20 10:01:00 EDT, Height, 123, kg, 09/05... Start Date: 01/28/20 Status: OrderedFlovent HFA 110 mcg/inh inhalation aerosol 2 puffs, Inhalation, 2 times a day, rinse mouth and throat after use, # 12 Gm, 1 Refills, Maintenance, 08/14/19 12:08:00 EST, Aeros[place], [facility]/pharmacy #[id number], 165.1, cm, 08/04/19 8:55:00 EST, Height Start Date: 08/14/19 Status: OrderedFLUoxetine 20 mg oral capsule 60 mg, 3, capsule, By Mouth, Daily, # 270 capsule, Refills 3, Tot. Refills 3, Maintenance, 07/20/19 8:49:52 EST, Route to Pharmacy Electronically, [facility]/pharmacy #[id number], 165.1, cm, 07/20/19 8:25:18 EST, Height Start Date: 07/20/19 Status: Orderedibuprofen 800 mg oral tablet 800 mg, 1, tablet, By Mouth, 3 times a day, PRN, with food or milk, # 42 tablet, Refills 0, Tot. Refills 0, Maintenance, for pain, 01/08/20 15:50:00 EDT, Route to Pharmacy Electronically, [facility]/pharmacy #[id number], 165.1, cm, 01/08/20 15:06:00 EDT, [...] 3 Refills, Maintenance, 07/20/19 8:49:52 EST, Tablet, [facility]/pharmacy #[id number], 1 tablet By [...] 1 2 Height 165.10 cm 165.10 cm (01/26/20 10:01 AM) (01/26/20 9:18 AM) Weight 127.5 kg (01/26/20 9:18 AM) Oxygen Saturation [94-100 %] 98 % (01/26/20 9:18 AM) Pulse Rate [55-90 bpm] 97 bpm *H* (01/26/20 9:18 AM) Body Mass Index [18.5-24.99] 46.78 *>HHI* (01/26/20 9:18 AM) Blood Pressure [90-138/55-84 mm Hg] 138/88 mm Hg 142/ 84 mm Hg (01/26/20 10:01 AM) *H* (01/26/20 9:18 AM) Temperature [96.8-100.4 DegF] 99.1 DegF (01/26/20 9:18 AM) Temperature Route Oral (01/26/20 9:18 AM) Social History Social History Type Response Smoking Status Never smoker entered on: 10/27/13 Sex
--- OUTSIDE RECORDS SUMMARY | 2022-05-06 01:07 | XMS_ITS | Continuity of Care Document ---
:1975 Author Organization [facility] Address [address] [place] [address]- Care Team Providers Name Role Phone Alejandro Rogers MD Primary Care Physician Encounter [facility] Date(s): 03/23/20 - 03/23/[address] [address]- [facility] Discharge Disposition: A-D/C Home Attending Physician: Kacie Huff MD Admitting Physician: Kacie Huff MD Referring Physician: Kacie Huff MD Allergies, Adverse Reactions, [...] Toxoid Vaccine (oldterm) 10/03/06 Given 1Admin Note: [facility]fek[facility]d Note: [id number] Note: SANOFI PASTEUR Medications ASA/butalbital/caffeine 325 mg-50 mg-40 mg oral tablet 1 tablet, By Mouth, Every 4 hours, PRN for pain, 1 tablet every 4 hours PRN for headaches fax # [phone], # 30 tablet, 5 Refills, Maintenance, 12/16/17 11:20:08 EDT, Tablet Start Date: 12/16/17 Status: OrderedCPAP Pet Adoption Counselor, 05/19/18 8:04:57 EDT, Compound Start Date: 05/19/18 Status: OrderedFlonase 50 mcg/inh nasal spray 1 sprays, Nares, Both, 2 times a day, in each nostril, # 48 mL, 1 Refills, Maintenance, 01/28/20 10:50:00 EDT, [place], [facility]/pharmacy #[id number], 1 sprays Nares, Both 2 times a day,Instr:in each nostril, 165.1, cm, 01/26/20 10:01:00 EDT, Height, 123, kg, 09/05... Start Date: 01/28/20 Status: OrderedFlovent HFA 110 mcg/inh inhalation aerosol 2 puffs, Inhalation, 2 times a day, rinse mouth and throat after use, # 12 Gm, 1 Refills, Maintenance, 08/14/19 12:08:00 EST, Aerosol, [facility]/pharmacy #[id number], 165.1, cm, 08/04/19 8:55:00 EST, Height Start Date: 08/14/19 Status: OrderedFLUoxetine 20 mg oral capsule 60 mg, 3, capsule, By Mouth, Daily, # 270 capsule, Refills 3, Tot. Refills 3, Maintenance, 07/20/19 8:49:52 EST, Route to Pharmacy Electronically, [facility]/pharmacy #[id number], 165.1, cm, 07/20/19 8:25:18 EST, Height Start Date: 07/20/19 Status: Orderedibuprofen 600 mg oral tablet 600 mg, 1, tablet, By Mouth, Every 6 hours, PRN, # 40 tablet, Refills 0, Tot. Refills 0, Maintenance, for pain, 03/23/20 8:44:00 EDT, Route to Pharmacy Electronically, [facility]/pharmacy #[id number], 165.1, cm, 03/23/20 7:03:00 EDT, Height, 125.8, kg, 03/23/20 7:... Start Date: 03/23/20 Status: Orderedibuprofen 800 mg oral tablet 800 mg, 1, tablet, By Mouth, 3 times a day, PRN, with food or milk, # 42 tablet, Refills 0, Tot. Refills 0, Maintenance, for pain, 01/08/20 15:50:00 EDT, Route to Pharmacy Electronically, [facility]/pharmacy #[id number], 165.1, cm, 01/08/20 15:06:00 EDT, [...] Maintenance, 07/25/16 15:52:04 Start Date: 07/25/16 Status: OrderedoxyCODONE 5 mg oral tablet 5 mg, 1, tablet, By Mouth, Every 6 hours, PRN, for 7 days, # 7 tablet, Refills 0, Tot. Refills 0, Acute 03/30/20 8:44:00 EDT, for pain, 03/23/20 8:44:00 EDT, Route to Pharmacy Electronically, [facility]/pharmacy #[id number], Partial fill upon patient request, 165.... Start Date: 03/23/20 Stop Date: 03/30/20 Status: OrderedTylenol 325 mg oral capsule 2 capsule = 650 mg, By Mouth, Every 4 hours, PRN as needed for pain, # 90 capsule, 0 Refills, Maintenance, 03/23/20 8:44:00 EDT, Caps[place], [facility]/pharmacy #[id number], 165.1, cm, 03/23/20 7:03:00 EDT, [...] cancer Vital Signs Most recent to oldest 1 2 3 [Reference Range]: Height 165.10 cm 165.10 cm (03/23/20 7:03 AM) (03/18/20 11:01 AM) Weight 118.20 kg 118.20 kg (03/23/20 7:03 AM) (03/18/20 11:01 AM) Oxygen Saturation [94-100 97 % 96 % 100 % %] (03/23/20 9:30 AM) (03/23/20 9:15 AM) (03/23/20 9:0 0 AM) Pulse Rate [55-90 bpm] 92 bpm *H* (03/23/20 7:03 AM) Body Mass Index 43.36 43.36 [18.5-24.99] *>HHI* *>HHI* (03/23/20 7:03 AM) (03/18/20 11:01 AM) Blood Pressure 135/81 mm Hg 137/76 mm Hg 130/79 mm Hg [90-138/55-84 mm Hg] (03/23/20 9:15 AM) (03/23/20 9:00 AM) ( 0 8:45 AM) Respiratory Rate [16-30 18 br/min 17 br/min 17 br/mi n br/min] (03/23/20 9:31 AM) (03/23/20 9:15 AM) (03/23/20 9:0 0 AM) Temperature [96.8-100.4 97.9 DegF 98.1 DegF DegF] (03/23/20 8:45 AM) (03/23/20 7:03 AM) Liters per Minute 6 L/min (03/23/20 8:45 AM) Mode of Delivery (Oxygen) Room air Room air Room a ir (03/23/20 10:30 AM) (03/23/20 9:30 AM) (03/23/20 9: 15 AM) Blood pressure sites Arm, right Arm, right Arm, right (03/23/20 9:15 AM) (03/23/20 9:00 AM) (03/23/20 8:4 5 AM) Temperature Route Temporal Temporal (03/23/20 8:45 AM) (03/23/20 7:03 AM) Dry Weight 125.8 kg 118.20 kg (03/23/20 7:03 AM) (03/18/20 11:01 AM) Weight Obtained Via Patient/family stated (03/18/20 11:01 AM) Dry Weight Obtained Via Standing scale Patient/family stated (03/23/20 7:03 AM) (03/18/20 11:01 AM) Social History Social History Type Response Smoking Status Never smoker entered on: 10/27/13 Sex
--- OUTSIDE RECORDS SUMMARY | 2022-05-06 01:07 | XMS_ITS | Continuity of Care Document ---
:1975 Author Organization [facility] Adult Address [address] [place] [address]- Care Team Providers Name Role Phone Sue MARTINEZ, Alejandro Amaya Primary Care Physician Encounter [facility] Date(s): 06/13/20 - 07/13/20 [facility] Adult [address] [place] [address]- Attending Physician: Admtr, Ar8 Allergies, Adverse Reactions, [...] Toxoid Vaccine (oldterm) 10/03/06 Given 1Admin Note: [id number] Note: [id number] Note: SANOFI PASTEUR Medications ASA/butalbital/caffeine 325 mg-50 mg-40 mg oral tablet 1 tablet, By Mouth, Every 4 hours, PRN for pain, 1 tablet every 4 hours PRN for headaches fax # [phone], # 30 tablet, 5 Refills, Maintenance, 12/16/17 11:20:08 EDT, Tablet Start Date: 12/16/17 Status: OrderedCPAP Casing Splitter, 05/19/18 8:04:57 EDT, Compound Start Date: 05/19/18 Status: OrderedFlonase 50 mcg/inh nasal spray 1 sprays, Nares, Both, 2 times a day, in each nostril, # 48 mL, 1 Refills, Maintenance, 01/28/20 10:50:00 EDT, [place], [facility]/pharmacy #[id number], 1 sprays Nares, Both [...] Septate uterus(Confirmed) Active [id number] no polyps or [id number] [place] Social History Social History Type Response Smoking Status Never smoker entered on: 10/27/13 Sex
--- OUTSIDE RECORDS SUMMARY | 2022-05-06 01:08 | XMS_ITS | Continuity of Care Document ---
:1975 Author Organization [facility] [employer] [facility] p Address [address] [place] [address], [address] [place] [address]- Care Team Providers Name Role Phone Alejandro Rogers MD Primary Care Physician Encounter [facility] Date(s): 03/08/20 - 03/15/20 [facility] [address] [place] [id number]- [facility] Attending Physician: Kacie Huff MD [...] Toxoid Vaccine (oldterm) 10/03/06 Given 1Admin Note: [employer] [id number]: [id number] Note: SANOFI PASTEUR Medications ASA/butalbital/caffeine 325 mg-50 mg-40 mg oral tablet 1 tablet, By Mouth, Every 4 hours, PRN for pain, 1 tablet every 4 hours PRN for headaches fax # [phone], # 30 tablet, 5 Refills, Maintenance, 12/16/17 11:20:08 EDT, Tablet Start Date: 12/16/17 Status: OrderedCPAP Marketing Project Lead, 05/19/18 8:04:57 EDT, Compound Start Date: 05/19/18 Status: Orderedcyclobenzaprine 10 mg oral tablet 10 mg, 1, tablet, By Mouth, Daily at bedtime, # 14 tablet, Refills 0, Tot. Refills 0, Maintenance, 11/06/19 15:45:00 EDT, Route to Pharmacy Electronically, [facility]/pharmacy #[id number], 165.1, cm, 09/14/19 9:02:00 EST, Height, 123, kg, 09/14/19 9:02:00 EST, Dry... Start Date: 11/06/19 Status: OrderedFlonase 50 mcg/inh nasal spray 1 sprays, Nares, Both, 2 times a day, in each nostril, # 48 mL, 1 Refills, Maintenance, 01/28/20 10:50:00 EDT, [place], [facility]/pharmacy #[id number], 1 sprays Nares, [...] oldest [Reference Range]: 1 Height 165.10 cm (03/08/20 2:16 PM) Weight 125.4 kg (03/08/20 2:16 PM) Body Mass Index [18.5-24.99] 46 *>HHI* (03/08/20 2:16 PM) Blood Pressure [90-138/55-84 mm Hg] 141/81 mm Hg *H* (03/08/20 2:16 PM) Temperature [96.8-100.4 DegF] 96.7 DegF *L* (03/08/20 2:16 PM) Blood pressure sites Arm, right (03/08/20 2:16 PM) Temperature Route Temporal (03/08/20 2:16 PM) Dry Weight 125.4 kg (03/08/20 2:16 PM) Weight Obtained Via Standing scale (03/08/20 2:16 PM) Dry Weight Obtained Via Standing scale (03/08/20 2:16 PM) Social History Social History Type Response Smoking Status Never smoker entered on: 10/27/13 Sex
[2022-05-06 01:16] LABS: Alanine Aminotransferase 11 U/L (0-31); Albumin Level 3.9 g/dL (3.5-5.0); Alkaline Phosphatase 82 U/L (39-117); Anion Gap 13 (12-20); Aspartate Amino Transferase 9 U/L (5-31); Bilirubin Total 0.3 mg/dL (0.0-1.0); Blood Urea Nitrogen 10 mg/dL (9-16); Calcium 8.8 mg/dL (8.4-10.2); Carbon Dioxide 28 mmol/L (22-29); Chloride 102 mmol/L (96-108); Creatinine Clr Calc Pharmacy 117.7; Estimated Glomerular Filt Rate > 60; Glucose Random 217 mg/dL (60-115); Potassium 3.2 mmol/L (3.3-5.1); Sodium 140 mmol/L (135-145); Total Protein 6.1 g/dL (6.5-8.0)
[2022-05-06 01:19] VITALS: BP 123/68; PULSE 103; TEMP 37.1; O2SAT 98
[2022-05-06 01:41] LABS: Glucose, Whole Blood 182 mg/dL (60-115)
[2022-05-06 02:06] LABS: Erythrocyte Sedimentation Rate 43 MM/HR (0-20)
--- NOTE | 2022-05-06 02:44 | ED_ITS ---
HPI - General Adult General Chief complaint: General Medical Stated complaint: numbness upper extremity Time Seen by Provider: 05/06/22 00:49 Source: patient Mode of arrival: ambulatory History of Present Illness HPI narrative: 46-year-old female who presents with complaints of 1 and half to 2 weeks of right index finger numbness that has remained constant and does not appear to be associated with repetitive movements extends from the PIP distally with some associated pain and then patient states that over the week she noticed that it seemed to spread up towards her shoulder. Patient denies any falls or injuries to the right upper extremity and denies any neck pain. Patient states that today she had not eaten throughout the day and drink minimal amount of fluids and then in the evening got up to go to the bathroom and reportedly became dizzy with narrowing of her vision and a flush of heat and I almost fainted . Afterwards, patient states that she felt cool and clammy as well as nauseous. Related Data Home Medications Medication Instructions Recorded Confirmed clonazepam 0.5 mg tablet 0.5 mg PO BID PRN 08/04/20 02/13/21 levonorgestrel 20 mcg/24 hours (7 intrauterine 08/04/20 02/13/21 yrs) 52 mg intrauterine device (Mirena) lisinopril 20 1 tab PO DAILY 08/04/20 02/13/21 mg-hydrochlorothiazide 25 mg tablet gabapentin 300 mg capsule 300 mg PO DAILY 09/16/20 02/13/21 mirabegron 25 mg tablet,extended 25 mg PO DAILY 01/30/21 02/13/21 release 24 hr (Myrbetriq) fluoxetine 20 mg capsule 20 mg PO DAILY 02/13/21 02/13/21 Previous Rx's Medication Instructions Recorded mecobalamin (vitamin B12) 1,000 1,000 mcg PO DAILY #30 tabs 09/13/20 mcg chewable tablet cholecalciferol (vitamin D3) 1,250 1,250 mcg PO QWEEK #4 caps 09/15/20 mcg (50,000 unit) capsule nitrofurantoin 100 mg PO Q12H 5 days #10 caps 05/06/22 monohydrate/macrocrystals 100 mg capsule (Macrobid) Allergies Allergy/AdvReac Type Severity Reaction Status Date / Time No Known Allergies Allergy Verified 02/13/21 14:47 [No Known Allergies*] Review of Systems Review of Systems: Pertinent positives and negatives as stated in HPI 10 point review of systems is otherwise negative. [facility] Past Medical History Source: nursing notes reviewed Medical History Anxiety BMI 45.0-49.9, adult Depression Hypertension IBS (irritable bowel syndrome) Morbid obesity TRICIA on CPAP PCOS (polycystic ovarian syndrome) Surgical History Endometriosis H/O colonoscopy H/O tooth extraction History of bladder surgery Family History Family History Mother No problems noted. Father No problems noted. Sister No problems noted. Social History Social History Alcohol intake: never Patient Tobacco Use Status: Never used Tobacco Use of substances other than those prescribed or required for medical reasons: No Advance Directives: No Patient : No Physical Exam ED Vital Signs: Vital Signs - 24 hr 05/06/22 00:19 05/06/22 01:19 Temperature 98.1 F 98.7 F Pulse Rate 111 H 103 H Respiratory Rate 18 Blood Pressure 123/75 123/68 Pulse Oximetry 98 98 Oxygen Delivery Method Room Air Room Air BMI result Body Mass Index 42.4 VITAL SIGNS: Reviewed. GENERAL: Well developed, well nourished, in no acute distress. HEAD: Normocephalic/atraumatic EYES: PERRLA, EOMI EARS: Ext canals without abnormality OROPHARYNX: no oral lesions noted, posterior pharynx clear LUNGS: Normal breath sounds. No adventitious sounds or accessory muscle use. SpO2<98> CARDIOVASCULAR: Regular rate and rhythm without noted murmurs ABDOMEN: Soft, non-tender, non-distended with bowel sounds. MUSCULOSKELETAL: No tenderness, deformities, or effusions noted on gross inspection. EXTREMITIES: No cyanosis, clubbing or edema. SKIN: Inspection of the skin reveals no rashes NEUROLOGIC: Alert and oriented x 4. Strength and sensation to light touch were grossly intact x 4. Course Course Course Narrative: 46-year-old female with history and clinical presentation not consistent with focal deficits, but concerning for possible diabetic neuropathy, MS, B12 deficiency. On review of patient's records she has history of vitamin B12 deficiency which may be a contributing factor, she was also recently diagnosed with diabetes based on her hemoglobin A1c. Inflammatory markers are elevated which point more towards an inflammatory response possibly autoimmune and less likely to be diabetic neuropathy. Patient already has follow-up appointment at [facility] whom she is primarily seen through for an EMG. All results discussed with her bedside and she was strongly encouraged to follow-up for that testing but I will also give her referral to follow-up with Dr. Kilpatrick for further testing. urinalysis demonstrates UTI. Medical Decision Making Lab Data Result diagrams: 05/06/22 00:42 05/06/22 00:42 Labs: Lab Results 05/06/22 05/06/22 05/06/22 Range/Units 00:42 00:42 00:42 WBC 11.4 H (4.8-10.8) X10*3/uL RBC 4.47 (4.20-5.50) X10*6/uL Hgb 12.2 (12.0-16.0) g/dl Hct 36.8 L (37.0-47.0) % MCV 82.3 (80.0-98.0) fL MCH 27.3 (27.0-33.0) pg MCHC 33.2 (31.0-35.0) g/dl RDW 13.1 (11.0-16.0) % Plt Count 306 (160-400) X10*3/uL MPV 9.8 (9.4-12.3) fL Immature Gran % (Auto) 0.5 H (0.0-0.4) % Neut % (Auto) 68.0 (45-73) % Lymph % (Auto) 24.7 (20-40) % [place] % (Auto) 4.6 (2-11) % Eos % (Auto) 1.6 (0-4) % Baso % (Auto) 0.6 (0-2) % Lymph # (Auto) 2.8 (1.2-4.9) X10*3/uL [place] # (Auto) 0.5 (0.1-1.2) X10*3/uL Eos # (Auto) 0.2 (0.0-0.4) X10*3/uL Baso # (Auto) 0.1 (0.0-0.2) X10*3/uL Abs Immat Gran (auto) 0.06 H (0.00-0.03) X10*3/uL Absolute Neuts (auto) 7.8 (2.0-8.3) x10*3/uL Absolute Nucleated RBC 0.000 (0.0-0.012) X10*3/uL Nucleated RBC % (auto) 0.0 (0.0-0.2) /100WBC ESR 43 H (0-20) MM/HR Sodium 140 (135-145) mmol/L Potassium 3.2 L (3.3-5.1) mmol/L Chloride 102 (96-108) mmol/L Carbon Dioxide 28 (22-29) mmol/L Anion Gap 13 (12-20) BUN 10 (9-16) mg/dL Creatinine 0.75 (0.5-1.4) mg/dL Estim Creat Clear Calc 117.7 Estimated GFR > 60 POC Glucose (60-115) mg/dL Random Glucose 217 H (60-115) mg/dL Calcium 8.8 (8.4-10.2) mg/dL Total Bilirubin 0.3 (0.0-1.0) mg/dL AST 9 (5-31) U/L ALT 11 (0-31) U/L Alkaline Phosphatase 82 (39-117) U/L C-Reactive Protein 2.30 H (< or = 0.50) mg/dL Total Protein 6.1 L (6.5-8.0) g/dL Albumin 3.9 (3.5-5.0) g/dL Urine Color Urine Appearance Urine pH (5.0-9.0) Ur Specific [place] (1.005-1.025) Urine Protein (Neg-Trace) mg/dL Urine Glucose (UA) (Negative) mg/dL Urine Ketones (Negative) mg/dL Urine Blood (Negative) Urine Nitrite (Negative) Ur Leukocyte Esterase (Negative) Urine RBC (0-2) /HPF Urine WBC (0-5) /HPF Ur Squamous Epith Cells (0-2) /HPF Urine Bacteria (None Seen) Hyaline Casts (0-2) /LPF Urine Test (NEGATIVE) COVID-19 (PITA) (Negative) COVID-19 Clin Com 05/06/22 05/06/22 05/06/22 Range/Units 01:28 02:45 03:04 WBC (4.8-10.8) X10*3/uL RBC (4.20-5.50) X10*6/uL Hgb (12.0-16.0) g/dl Hct (37.0-47.0) % MCV (80.0-98.0) fL MCH (27.0-33.0) pg MCHC (31.0-35.0) g/dl RDW (11.0-16.0) % Plt Count (160-400) X10*3/uL MPV (9.4-12.3) fL Immature Gran % (Auto) (0.0-0.4) % Neut % (Auto) (45-73) % Lymph % (Auto) (20-40) % [place] % (Auto) (2-11) % Eos % (Auto) (0-4) % Baso % (Auto) (0-2) % Lymph # (Auto) (1.2-4.9) X10*3/uL [place] # (Auto) (0.1-1.2) X10*3/uL Eos # (Auto) (0.0-0.4) X10*3/uL Baso # (Auto) (0.0-0.2) X10*3/uL Abs Immat Gran (auto) (0.00-0.03) X10*3/uL Absolute Neuts (auto) (2.0-8.3) x10*3/uL Absolute Nucleated RBC (0.0-0.012) X10*3/uL Nucleated RBC % (auto) (0.0-0.2) /100WBC ESR (0-20) MM/HR Sodium (135-145) mmol/L Potassium (3.3-5.1) mmol/L Chloride (96-108) mmol/L Carbon Dioxide (22-29) mmol/L Anion Gap (12-20) BUN (9-16) mg/dL Creatinine (0.5-1.4) mg/dL Estim Creat Clear Calc Estimated GFR POC Glucose 182 H (60-115) mg/dL Random Glucose (60-115) mg/dL Calcium (8.4-10.2) mg/dL Total Bilirubin (0.0-1.0) mg/dL AST (5-31) U/L ALT (0-31) U/L Alkaline Phosphatase (39-117) U/L C-Reactive Protein (< or = 0.50) mg/dL Total Protein (6.5-8.0) g/dL Albumin (3.5-5.0) g/dL Urine Color Yellow Urine Appearance Clear Urine pH 7.0 (5.0-9.0) Ur Specific [place] 1.010 (1.005-1.025) Urine Protein Negative (Neg-Trace) mg/dL Urine Glucose (UA) Negative (Negative) mg/dL Urine Ketones Negative (Negative) mg/dL Urine Blood Negative (Negative) Urine Nitrite Negative (Negative) Ur Leukocyte Esterase Small (1+) H (Negative) Urine RBC 0-2 (0-2) /HPF Urine WBC 0-5 (0-5) /HPF Ur Squamous Epith Cells 0-2 (0-2) /HPF Urine Bacteria Trace (None Seen) Hyaline Casts 0-2 (0-2) /LPF Urine Test (NEGATIVE) COVID-19 (PITA) Negative (Negative) COVID-19 Clin Com See Note 05/06/22 Range/Units 03:04 WBC (4.8-10.8) X10*3/uL RBC (4.20-5.50) X10*6/uL Hgb (12.0-16.0) g/dl Hct (37.0-47.0) % MCV (80.0-98.0) fL MCH (27.0-33.0) pg MCHC (31.0-35.0) g/dl RDW (11.0-16.0) % Plt Count (160-400) X10*3/uL MPV (9.4-12.3) fL Immature Gran % (Auto) (0.0-0.4) % Neut % (Auto) (45-73) % Lymph % (Auto) (20-40) % [place] % (Auto) (2-11) % Eos % (Auto) (0-4) % Baso % (Auto) (0-2) % Lymph # (Auto) (1.2-4.9) X10*3/uL [place] # (Auto) (0.1-1.2) X10*3/uL Eos # (Auto) (0.0-0.4) X10*3/uL Baso # (Auto) (0.0-0.2) X10*3/uL Abs Immat Gran (auto) (0.00-0.03) X10*3/uL Absolute Neuts (auto) (2.0-8.3) x10*3/uL Absolute Nucleated RBC (0.0-0.012) X10*3/uL Nucleated RBC % (auto) (0.0-0.2) /100WBC ESR (0-20) MM/HR Sodium (135-145) mmol/L Potassium (3.3-5.1) mmol/L Chloride (96-108) mmol/L Carbon Dioxide (22-29) mmol/L Anion Gap (12-20) BUN (9-16) mg/dL Creatinine (0.5-1.4) mg/dL Estim Creat Clear Calc Estimated GFR POC Glucose (60-115) mg/dL Random Glucose (60-115) mg/dL Calcium (8.4-10.2) mg/dL Total Bilirubin (0.0-1.0) mg/dL AST (5-31) U/L ALT (0-31) U/L Alkaline Phosphatase (39-117) U/L C-Reactive Protein (< or = 0.50) mg/dL Total Protein (6.5-8.0) g/dL Albumin (3.5-5.0) g/dL Urine Color Urine Appearance Urine pH (5.0-9.0) Ur Specific [place] (1.005-1.025) Urine Protein (Neg-Trace) mg/dL Urine Glucose (UA) (Negative) mg/dL Urine Ketones (Negative) mg/dL Urine Blood (Negative) Urine Nitrite (Negative) Ur Leukocyte Esterase (Negative) Urine RBC (0-2) /HPF Urine WBC (0-5) /HPF Ur Squamous Epith Cells (0-2) /HPF Urine Bacteria (None Seen) Hyaline Casts (0-2) /LPF Urine Test NEGATIVE (NEGATIVE) COVID-19 (PITA) (Negative) COVID-19 Clin Com Discharge Plan Discharge Clinical Impression: Neuropathy of right upper extremity, Anxiety, UTI (urinary tract infection), Vasovagal near-syncope Patient Disposition: Home, Self-Care Instructions: Urinary Tract Infection in Women (ED), Peripheral Neuropathy (ED), Near Syncope (ED), Anxiety (ED) Additional Instructions: 1. Resume all home medications as prescribed. 2. All of your inflammatory markers are noted to be elevated suggesting an inflammatory reaction may be contributing to the symptoms that you are experiencing. 3. Please complete the entire course of your antibiotics. And keep your current appointment for EMG evaluation. Return to the ER for worsening symptoms. Prescriptions: New nitrofurantoin monohyd/m-cryst [Macrobid] 100 mg capsule 100 mg PO Q12H 5 Days Qty: 10 0RF Rx Instructions: must administer with a meal/food No Action mecobalamin (vitamin B12) 1,000 mcg tablet,chewable 1,000 mcg PO DAILY Qty: 30 5RF clonazepam 0.5 mg tablet 0.5 mg PO BID PRN Mirena 20 mcg/24 hours (6 yrs) 52 mg intrauterine device intrauterine lisinopril-hydrochlorothiazide 20-25 mg tablet 1 tab PO DAILY fluoxetine 20 mg capsule 20 mg PO DAILY cholecalciferol (vitamin D3) 1,250 mcg (50,000 unit) capsule 1,250 mcg PO QWEEK Qty: 4 2RF gabapentin 300 mg capsule 300 mg PO DAILY Myrbetriq 25 mg tablet extended release 24 hr 25 mg PO DAILY Referrals: Jake Kilpatrick MD [Physician] -
[2022-05-06 03:04] LABS: COVID-19 Test Negative (Negative); IDNOW Serial# 16C4AD1C
[2022-05-06 03:10] LABS: Appearance Urine Clear; Color Urine Yellow; Glucose Urine UA Negative (Negative); Leukocyte Esterase Urine Small (1+) (Negative); Nitrite Urine Negative (Negative); UMIC TRIGGER UACC YES; Urine Blood Negative (Negative); Urine Ketones Negative (Negative); Urine Protein Negative (Neg-Trace)
[2022-05-06 03:12] LABS: RBC Urine 0-2 /HPF (0-2); UPreg QC Valid YES; Urine Pregnancy NEGATIVE (NEGATIVE)
[2022-05-06 03:13] LABS: Bacteria Urine Trace (None Seen); Hyaline Casts Urine 0-2 /LPF (0-2); Squamous Epithelial Cell Urine 0-2 /HPF (0-2); UACC Culture Trigger YES; WBC Urine 0-5 /HPF (0-5)
[2022-05-06] MEDS: Nitrofurantoin Monohyd/M-Cryst 100 MG CAPSULE PO (03:49)
[2022-05-07 07:50] LABS: Vitamin B12 187 pg/mL (200-900)
== END 2022-05-06 04:03 | disposition home or self-care (01) ==
PROVIDERS: Emergency Provider Student in an Organized Health Care Education/Training Program; PCP Internal Medicine
DX: G62.9 Polyneuropathy, unspecified (principal); R20.0 Anesthesia of skin; F41.1 Generalized anxiety disorder; F43.0 Acute stress reaction; N39.0 Urinary tract infection, site not specified; R55 Syncope and collapse; Z20.822 Contact with and (suspected) exposure to COVID-19; Z79.899 Other long term (current) drug therapy
CPT/HCPCS: 36415; 70450; 80053; 81001; 81025; 82607; 82947; 85025; 85652; 86140; 87086; 87635; 99284

== ENCOUNTER 2023-02-09 09:39 | Emergency (ER) | payer OTHER, SELFPAY ==
[2023-02-09 09:41] VITALS: BP 138/67; PULSE 98; RESP 14; TEMP 36.3; O2SAT 100; BMI 36.6
--- NOTE | 2023-02-09 09:51 | ED.GENADULT ---
HPI - General Adult General Chief complaint: General Medical Stated complaint: having dizzy episodes Time Seen by Provider: 02/09/23 09:51 Source: patient and family Mode of arrival: ambulatory Limitations: no limitations History of Present Illness HPI narrative: 47-year-old female came in for evaluation of episodes of dizziness and near syncope for the past few weeks. Patient with history of morbid obesity lost intentionally 70 lb in 8 months by appetite suppression, patient gets episodes of feeling lightheadedness almost going to pass out but never did, feels foggy and spacey, the symptoms associated with right side chest/shoulder pain, episodes usually last for about 10-15 minutes then patient feel exhausted and fatigued. Patient was complaining of right lower extremity pain had ultrasound done as an outpatient by her PCP patient reports that the ultrasound was negative for DVT. Related Data Home Medications Medication Instructions Recorded Confirmed clonazepam 0.5 mg tablet 0.5 mg PO BID PRN 08/04/20 02/13/21 levonorgestrel 21 mcg/24 hours (8 intrauterine 08/04/20 02/13/21 yrs) 52 mg intrauterine device (Mirena) lisinopril 20 1 tab PO DAILY 08/04/20 02/13/21 mg-hydrochlorothiazide 25 mg tablet gabapentin 300 mg capsule 300 mg PO DAILY 09/16/20 02/13/21 mirabegron 25 mg tablet,extended 25 mg PO DAILY 01/30/21 02/13/21 release 24 hr (Myrbetriq) fluoxetine 20 mg capsule 20 mg PO DAILY 02/13/21 02/13/21 Previous Rx's Medication Instructions Recorded mecobalamin (vitamin B12) 1,000 1,000 mcg PO DAILY #30 tabs 09/13/20 mcg chewable tablet cholecalciferol (vitamin D3) 1,250 1,250 mcg PO QWEEK #4 caps 09/15/20 mcg (50,000 unit) capsule nitrofurantoin 100 mg PO Q12H 5 days #10 caps 05/06/22 monohydrate/macrocrystals 100 mg capsule (Macrobid) Allergies Allergy/AdvReac Type Severity Reaction Status Date / Time No Known Allergies Allergy Verified 02/13/21 14:47 [No Known Allergies*] Review of Systems Review of Systems: All other systems are reviewed and are negative Constitutional: Reports as per HPI and Reports no additional constitutional complaints Eyes: Reports as per HPI and Reports no additional eye complaints Reports system reviewed and no additional complaints, except as documented Cardiovascular: Reports as per HPI and Reports no additional cardiovascular complaints Respiratory: Reports as per HPI and Reports no additional respiratory complaints Gastrointestinal: Reports as per HPI and Reports no additional gastrointestinal complaints Genitourinary: Reports no additional female genitourinary complaints Musculoskeletal: Reports no additional musculoskeletal complaints Skin/Breast: Reports system reviewed and no additional complaints, except as docu Psychiatric: Reports no additional psychiatric complaints Endocrine: Reports no additional endocrine complaints Hematologic/Lymphatic: Reports no additional hematologic/lymphatic complaints Allergic/Immunologic: Reports no additional allergic/immunologic complaints Reports system reviewed and no additional complaints, except as documented and Reports Abnormal speech present [facility] Past Medical History Medical History Anxiety BMI 45.0-49.9, adult Depression Hypertension IBS (irritable bowel syndrome) Morbid obesity TRICIA on CPAP PCOS (polycystic ovarian syndrome) Surgical History Endometriosis H/O colonoscopy H/O tooth extraction History of bladder surgery Family History Family History Mother No problems noted. Father No problems noted. Sister No problems noted. Social History Social History Alcohol intake: never Patient Tobacco Use Status: Never used Tobacco Advance Directives: No Advance Directives Information Provided: Yes Physical Exam ED Vital Signs: Vital Signs - 24 hr 02/09/23 09:41 Temperature 97.4 F Pulse Rate 98 Respiratory Rate 14 Blood Pressure 138/67 Pulse Oximetry 100 Oxygen Delivery Method Room Air BMI result Body Mass Index 36.6 Vital signs have been reviewed as appeared to be correct. Blood pressure normal. Heart rate normal. Respiration rate normal. Temperature normal. Oxygen saturation normal. Appearance: Alert. Oriented X3. No acute distress. Head: Normal external exam. Normocephalic. Atraumatic. No Martinez signs noted. No raccoon eyes noted Eyes: PERRLA. EOMI. Conjunctiva and sclera normal. Eyelids normal. ENT: TM's Normal. Pharynx normal. Uvula midline. Moist mucous membranes. No trismus noted. No drooling noted. No muffled voice noted. Neck: Normal inspection. Neck supple. FROM. No adenopathy. Thyroid Normal. No meningeal signs. No neck mass noted. CVS: Normal heart rate and rhythm. Heart sound normal. No murmurs noted. Pulses normal throughout. Respiratory: No respiratory distress. Painless inspiration. Breath sounds normal. No wheezes/rales/rhonchi noted. Chest nontender. No accessory muscle usage noted or decreased air movement noted. Abdomen: Soft and nontender. Bowel sounds normal in all 4 quadrants. No distention noted. No organomegaly noted. No visible injury noted. Back: No CVA tenderness. Full range of motion noted. Skin: Skin warm and dry. Normal skin color. Normal skin turgor. No rashes/lesions/lacerations noted. Extremities: No lower extremity edema. Extremities exhibit normal range of motion. Extremities nontender. Neuro: Oriented X 3. Cranial nerve exam: II-XII are grossly intact No motor deficit. No sensory deficit. Reflexes normal. Course Course Course Narrative: 47-year-old female came in for episode of dizziness and near syncopal episode, patient had an intentional 70 lb loss over the past 8 months, patient reported that she has been eating and drinking normally patient's symptoms thought to be secondary to fast and sudden loss of weight. Low potassium will replete potassium. Medications Administered Discontinued Medications Generic Name Dose Route Start Last Admin Trade Name Freq PRN Reason Stop Dose Admin Sodium Chloride 1,000 mls @ 999 mls/hr 02/09/23 10:01 02/09/23 10:39 Ns IV 02/09/23 11:01 999 mls/hr .Q1H1M ONE Administration Morphine Sulfate 1 mg 02/09/23 10:46 02/09/23 11:11 Morphine Sulfate 2 Mg/Ml Cartridge IVPUSH 02/09/23 10:47 1 mg ONCE ONE Administration Protocol Medical Decision Making Differential Diagnosis Differential Diagnoses: The differential diagnosis associated with the presentation includes (dehydration, electrolyte abnormality, severe anemia, , UTI.) Admission/Observation Consideration of admission/observation: Escalation of care including admission/observation considered Lab Data MDM Lab Attestation statement: I reviewed the patient's lab results. 02/09/23 10:35 02/09/23 10:35 Labs: Lab Results 02/09/23 02/09/23 02/09/23 Range/Units 10:35 10:35 10:35 WBC 10.2 (4.8-10.8) X10*3/uL RBC 4.57 (4.20-5.50) X10*6/uL Hgb 12.7 (12.0-16.0) g/dl Hct 37.9 (37.0-47.0) % MCV 82.9 (80.0-98.0) fL MCH 27.8 (27.0-33.0) pg MCHC 33.5 (31.0-35.0) g/dl RDW 13.4 (11.0-16.0) % Plt Count 302 (160-400) X10*3/uL MPV 10.4 (9.4-12.3) fL Immature Gran % (Auto) 0.3 (0.0-0.4) % Neut % (Auto) 72.2 (45-73) % Lymph % (Auto) 21.3 (20-40) % [place] % (Auto) 4.4 (2-11) % Eos % (Auto) 1.2 (0-4) % Baso % (Auto) 0.6 (0-2) % Lymph # (Auto) 2.2 (1.2-4.9) X10*3/uL [place] # (Auto) 0.5 (0.1-1.2) X10*3/uL Eos # (Auto) 0.1 (0.0-0.4) X10*3/uL Baso # (Auto) 0.1 (0.0-0.2) X10*3/uL Abs Immat Gran (auto) 0.03 (0.00-0.03) X10*3/uL Absolute Neuts (auto) 7.4 (2.0-8.3) x10*3/uL Absolute Nucleated RBC 0.000 (0.0-0.012) X10*3/uL Nucleated RBC % (auto) 0.0 (0.0-0.2) /100WBC Sodium 141 (135-145) mmol/L Potassium 3.1 L (3.3-5.1) mmol/L Chloride 103 (96-108) mmol/L Carbon Dioxide 28 (22-29) mmol/L Anion Gap 13 (12-20) BUN 5 L (9-16) mg/dL Creatinine 0.66 (0.5-1.4) mg/dL Estim Creat Clear Calc 121.9 Estimated GFR > 60 Random Glucose 112 (60-115) mg/dL Calcium 9.8 D (8.4-10.2) mg/dL Total Bilirubin 0.5 (0.0-1.0) mg/dL Direct Bilirubin 0.2 (0.0-0.5) mg/dL AST 10 (5-31) U/L ALT 6 (0-31) U/L Alkaline Phosphatase 77 (39-117) U/L Troponin I High Sens < 2.7 (<3.5-17.0) ng/L B-Natriuretic Peptide (<100) pg/mL Total Protein 6.8 (6.5-8.0) g/dL Albumin 4.0 (3.5-5.0) g/dL Lipase 12 (8-78) U/L Urine Color Urine Appearance Urine pH (5.0-9.0) Ur Specific [place] (1.005-1.025) Urine Protein (Neg-Trace) mg/dL Urine Glucose (UA) (Negative) mg/dL Urine Ketones (Negative) mg/dL Urine Blood (Negative) Urine Nitrite (Negative) Ur Leukocyte Esterase (Negative) Urine RBC (0-2) /HPF Urine WBC (0-5) /HPF Ur Squamous Epith Cells (0-2) /HPF Urine Bacteria (None Seen) Hyaline Casts (0-2) /LPF 02/09/23 02/09/23 Range/Units 10:35 11:13 WBC (4.8-10.8) X10*3/uL RBC (4.20-5.50) X10*6/uL Hgb (12.0-16.0) g/dl Hct (37.0-47.0) % MCV (80.0-98.0) fL MCH (27.0-33.0) pg MCHC (31.0-35.0) g/dl RDW (11.0-16.0) % Plt Count (160-400) X10*3/uL MPV (9.4-12.3) fL Immature Gran % (Auto) (0.0-0.4) % Neut % (Auto) (45-73) % Lymph % (Auto) (20-40) % [place] % (Auto) (2-11) % Eos % (Auto) (0-4) % Baso % (Auto) (0-2) % Lymph # (Auto) (1.2-4.9) X10*3/uL [place] # (Auto) (0.1-1.2) X10*3/uL Eos # (Auto) (0.0-0.4) X10*3/uL Baso # (Auto) (0.0-0.2) X10*3/uL Abs Immat Gran (auto) (0.00-0.03) X10*3/uL Absolute Neuts (auto) (2.0-8.3) x10*3/uL Absolute Nucleated RBC (0.0-0.012) X10*3/uL Nucleated RBC % (auto) (0.0-0.2) /100WBC Sodium (135-145) mmol/L Potassium (3.3-5.1) mmol/L Chloride (96-108) mmol/L Carbon Dioxide (22-29) mmol/L Anion Gap (12-20) BUN (9-16) mg/dL Creatinine (0.5-1.4) mg/dL Estim Creat Clear Calc Estimated GFR Random Glucose (60-115) mg/dL Calcium (8.4-10.2) mg/dL Total Bilirubin (0.0-1.0) mg/dL Direct Bilirubin (0.0-0.5) mg/dL AST (5-31) U/L ALT (0-31) U/L Alkaline Phosphatase (39-117) U/L Troponin I High Sens (<3.5-17.0) ng/L B-Natriuretic Peptide < 10 (<100) pg/mL Total Protein (6.5-8.0) g/dL Albumin (3.5-5.0) g/dL Lipase (8-78) U/L Urine Color Yellow Urine Appearance Clear Urine pH 7.0 (5.0-9.0) Ur Specific [place] <= 1.005 (1.005-1.025) Urine Protein Negative (Neg-Trace) mg/dL Urine Glucose (UA) Negative (Negative) mg/dL Urine Ketones Negative (Negative) mg/dL Urine Blood Negative (Negative) Urine Nitrite Negative (Negative) Ur Leukocyte Esterase Small (1+) H (Negative) Urine RBC 0-2 (0-2) /HPF Urine WBC 0-5 (0-5) /HPF Ur Squamous Epith Cells 3-5 (0-2) /HPF Urine Bacteria Trace (None Seen) Hyaline Casts 0-2 (0-2) /LPF Independent Interpretation I performed an independent interpretation of an: EKG (Normal sinus rhythm at 93 beats per minute, normal axis deviation, normal intervals, no ST-T changes.) and Plain X-Ray (Chest: No acute intrathoracic pathology) Radiology Impression Discussion of test interpretation with radiology: I have reviewed the radiologist's reading. Discharge Plan Discharge Clinical Impression: Hypokalemia, Near syncope Patient Disposition: Home, Self-Care Instructions: Potassium Content of Foods List (ED) Prescriptions: No Action mecobalamin (vitamin B12) 1,000 mcg tablet,chewable 1,000 mcg PO DAILY Qty: 30 5RF nitrofurantoin monohyd/m-cryst [Macrobid] 100 mg capsule 100 mg PO Q12H 5 Days Qty: 10 0RF Rx Instructions: must administer with a meal/food clonazepam 0.5 mg tablet 0.5 mg PO BID PRN Mirena 20 mcg/24 hours (6 yrs) 52 mg intrauterine device intrauterine lisinopril-hydrochlorothiazide 20-25 mg tablet 1 tab PO DAILY fluoxetine 20 mg capsule 20 mg PO DAILY cholecalciferol (vitamin D3) 1,250 mcg (50,000 unit) capsule 1,250 mcg PO QWEEK Qty: 4 2RF gabapentin 300 mg capsule 300 mg PO DAILY Myrbetriq 25 mg tablet extended release 24 hr 25 mg PO DAILY Referrals: Alejandro Rogers MD [Primary Care Provider] -
[2023-02-09 12:32] VITALS: BP 108/57; PULSE 80; RESP 20; TEMP 36.6; O2SAT 99
[2023-02-09 12:37] VITALS: BP 108/57; PULSE 77
[2023-02-09 12:39] VITALS: BP 119/76; PULSE 78
[2023-02-09 12:40] VITALS: BP 116/75; PULSE 82
== END 2023-02-09 12:56 | disposition home or self-care (01) ==
PROVIDERS: Emergency Provider Emergency Medicine; PCP Internal Medicine
DX: E87.6 Hypokalemia (principal); R55 Syncope and collapse; I10 Essential (primary) hypertension; E66.9 Obesity, unspecified; Z68.36 Body mass index [BMI] 36.0-36.9, adult; G47.33 Obstructive sleep apnea (adult) (pediatric); Z99.89 Dependence on other enabling machines and devices; Z79.899 Other long term (current) drug therapy
CPT/HCPCS: 36415; 71045; 73030; 80048; 80076; 81001; 81025; 83690; 83880; 84484; 85025; 87086; 93005; 96361; 96374; 99284; J2270

== ENCOUNTER 2025-01-22 16:54 | Outpatient (REF) | payer OTHER, SELFPAY ==
--- NOTE | ~2025-01-22 | US_ITS ---
CLINICAL HISTORY: SWELLING VENOUS DUPLEX ULTRASOUND RIGHT LOWER EXTREMITY Comparison: None provided Findings: The visualized deep veins are fully compressible with normal Doppler color flow and spectral tracings. No popliteal cyst. IMPRESSION: 1. Negative for right lower extremity deep vein thrombosis. This document has been electronically signed by: Monica Garza DO on 01/22/2025 18:10:22
== END 2025-01-22 16:55 | disposition home or self-care (01) ==
LOC: HO.US 16:54
PROVIDERS: Visit Provider Nurse Practitioner Adult Health
DX: M79.671 Pain in right foot (principal)
CPT/HCPCS: 93971

== ENCOUNTER → 2025-01-22 17:05 | Outpatient (BNV) | payer OTHER, SELFPAY | PROVIDERS: Visit Provider Radiology Diagnostic Radiology | DX: R22.41 Localized swelling, mass and lump, right lower limb (principal) | CPT/HCPCS: 93971 ==